=== PATIENT | female | born 1940 | race Caucasian/White ===

== ENCOUNTER → 2022-12-21 13:23 | Outpatient (BNVA) | payer MEDICARE, SELFPAY | PROVIDERS: Visit Provider Psychiatry & Neurology Neurology | DX: R41.89 Other symptoms and signs involving cognitive functions and awareness (principal); R06.83 Snoring; G47.10 Hypersomnia, unspecified; F41.9 Anxiety disorder, unspecified | CPT/HCPCS: 99202 ==

== ENCOUNTER 2023-02-24 09:20 | Outpatient (REF) | payer MEDICARE, SELFPAY ==
[2023-02-24 11:17] LABS: MANUAL DIFF FLAG NO
[2023-02-24 11:35] LABS: Basophils Percent Auto 0.6 % (0-2); Eosinophils Absolute Auto 0.1 X10*3/uL (0.0-0.4); Eosinophils Percent Auto 2.3 % (0-4); Hematocrit 41.1 % (37.0-47.0); Hemoglobin 13.5 g/dl (12.0-16.0); Imm Gran Abs Auto 0.01 X10*3/uL (0.00-0.03); Imm Gran Pct Auto 0.2 % (0.0-0.4); Lymphocytes Absolute Auto 1.6 X10*3/uL (1.2-4.9); Lymphocytes Percent Auto 29.8 % (20-40); Mean Corpuscular HGB Conc 32.8 g/dl (31.0-35.0); Mean Corpuscular Hemoglobin 30.4 pg (27.0-33.0); Mean Corpuscular Volume 92.6 fL (80.0-98.0); Mean Platelet Volume 10.1 fL (9.4-12.3); Monocytes Absolute Auto 0.5 X10*3/uL (0.1-1.2); Monocytes Percent Auto 8.7 % (2-11); Neutrophils Absolute Auto 3.1 x10*3/uL (2.0-8.3); Neutrophils Percent Auto 58.4 % (45-73); Platelet Count 192 X10*3/uL (160-400); Red Blood Count 4.44 X10*6/uL (4.20-5.50); Red Cell Distribution Width 13.3 % (11.0-16.0); White Blood Count 5.3 X10*3/uL (4.8-10.8)
[2023-02-24 11:54] LABS: Estimated Average Glucose 105 mg/dL; Hemoglobin A1c % 5.3 %
[2023-02-24 12:02] LABS: Alanine Aminotransferase 10 U/L (0-31); Albumin Level 3.9 g/dL (3.5-5.0); Alkaline Phosphatase 68 U/L (39-117); Anion Gap 10 (12-20); Aspartate Amino Transferase 15 U/L (5-31); Bilirubin Total 0.8 mg/dL (0.0-1.0); Blood Urea Nitrogen 16 mg/dL (9-16); Calcium 9.7 mg/dL (8.4-10.2); Carbon Dioxide 31 mmol/L (22-29); Chloride 107 mmol/L (96-108); Cholesterol 181 mg/dL; Estimated Glomerular Filt Rate > 60; Glucose Random 92 mg/dL (60-115); HDL Cholesterol 58 mg/dL; LDL Cholesterol Calculated 93 mg/dl; Sodium 144 mmol/L (135-145); Total Protein 6.2 g/dL (6.5-8.0); Triglycerides 153 mg/dL
[2023-02-24 12:33] LABS: Folate 17.9 ng/mL (> or = 4.0); TSH reflex Free T4 2.18 uIU/mL (0.32-4.0); Vitamin B12 366 pg/mL (200-900)
== END 2023-02-24 09:21 | disposition home or self-care (01) ==
LOC: HO.HMGCLDS 09:20
PROVIDERS: PCP Nurse Practitioner; Visit Provider Nurse Practitioner
DX: R73.03 Prediabetes (principal); E78.5 Hyperlipidemia, unspecified; I10 Essential (primary) hypertension; E53.8 Deficiency of other specified B group vitamins; E55.9 Vitamin D deficiency, unspecified
CPT/HCPCS: 36415; 80053; 80061; 82306; 82607; 82746; 83036; 84443; 85025

== ENCOUNTER → 2023-03-27 15:38 | Outpatient (BNVA) | payer MEDICARE, SELFPAY | PROVIDERS: PCP Nurse Practitioner; Visit Provider Psychiatry & Neurology Neurology | DX: G47.10 Hypersomnia, unspecified (principal); R06.83 Snoring; F03.90 Unspecified dementia, unspecified severity, without behavioral disturbance, psychotic disturbance, mood disturbance, and anxiety; F22 Delusional disorders; F41.9 Anxiety disorder, unspecified; F32.A Depression, unspecified | CPT/HCPCS: 99212 ==

== ENCOUNTER → 2023-04-17 07:37 | Outpatient (BNV) | payer MEDICARE, SELFPAY | PROVIDERS: PCP Nurse Practitioner; Visit Provider Psychiatry & Neurology Neurology | DX: G47.33 Obstructive sleep apnea (adult) (pediatric) (principal); G47.61 Periodic limb movement disorder | CPT/HCPCS: 95810 ==

== ENCOUNTER → 2023-04-17 19:30 | Outpatient (REF) | payer MEDICARE, SELFPAY | LOC: HO.SL 19:30 | PROVIDERS: PCP Nurse Practitioner; Visit Provider Psychiatry & Neurology Neurology | DX: G47.33 Obstructive sleep apnea (adult) (pediatric) (principal); G47.61 Periodic limb movement disorder | CPT/HCPCS: 95810 ==

== ENCOUNTER 2023-05-30 15:03 | Outpatient (AMB) | payer MEDICARE, SELFPAY ==
[2023-05-30 15:05] VITALS: BP 132/74; PULSE 72; O2SAT 95; BMI 30.2
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
== END 2023-05-30 15:42 | disposition home or self-care (01) ==
PROVIDERS: PCP Nurse Practitioner; Visit Provider Psychiatry & Neurology Neurology
DX: R41.89 Other symptoms and signs involving cognitive functions and awareness (principal); G47.33 Obstructive sleep apnea (adult) (pediatric); G43.109 Migraine with aura, not intractable, without status migrainosus
CPT/HCPCS: 99214

== ENCOUNTER → 2023-05-30 15:03 | Outpatient (BNVA) | payer MEDICARE, SELFPAY | PROVIDERS: PCP Nurse Practitioner; Visit Provider Psychiatry & Neurology Neurology | DX: G47.33 Obstructive sleep apnea (adult) (pediatric) (principal); G43.109 Migraine with aura, not intractable, without status migrainosus; R41.89 Other symptoms and signs involving cognitive functions and awareness; Z79.899 Other long term (current) drug therapy; Z99.89 Dependence on other enabling machines and devices | CPT/HCPCS: 99212 ==

== ENCOUNTER 2023-09-13 11:13 | Outpatient (AMB) | payer MEDICARE, SELFPAY ==
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
[2023-09-13 11:28] VITALS: BP 172/90; PULSE 58; RESP 17; O2SAT 98; BMI 29.0
== END 2023-09-13 11:55 | disposition home or self-care (01) ==
PROVIDERS: PCP Nurse Practitioner; Visit Provider Psychiatry & Neurology Neurology
DX: R41.89 Other symptoms and signs involving cognitive functions and awareness (principal); G47.33 Obstructive sleep apnea (adult) (pediatric); G43.109 Migraine with aura, not intractable, without status migrainosus; G50.0 Trigeminal neuralgia
CPT/HCPCS: 99214

== ENCOUNTER → 2023-09-13 11:13 | Outpatient (BNVA) | payer MEDICARE, SELFPAY | PROVIDERS: PCP Nurse Practitioner; Visit Provider Psychiatry & Neurology Neurology | DX: R41.89 Other symptoms and signs involving cognitive functions and awareness (principal); G47.33 Obstructive sleep apnea (adult) (pediatric); G50.0 Trigeminal neuralgia; G43.109 Migraine with aura, not intractable, without status migrainosus | CPT/HCPCS: 99212 ==

== ENCOUNTER 2023-09-28 10:41 | Outpatient (REF) | payer MEDICARE, SELFPAY ==
[2023-09-28 13:35] LABS: MANUAL DIFF FLAG NO
[2023-09-28 13:44] LABS: Basophils Percent Auto 0.6 % (0-2); Eosinophils Absolute Auto 0.1 X10*3/uL (0.0-0.4); Eosinophils Percent Auto 1.5 % (0-4); Hematocrit 40.8 % (37.0-47.0); Hemoglobin 13.3 g/dl (12.0-16.0); Imm Gran Abs Auto 0.01 X10*3/uL (0.00-0.03); Imm Gran Pct Auto 0.2 % (0.0-0.4); Lymphocytes Absolute Auto 1.7 X10*3/uL (1.2-4.9); Lymphocytes Percent Auto 32.3 % (20-40); Mean Corpuscular HGB Conc 32.6 g/dl (31.0-35.0); Mean Corpuscular Hemoglobin 30.4 pg (27.0-33.0); Mean Corpuscular Volume 93.2 fL (80.0-98.0); Mean Platelet Volume 10.5 fL (9.4-12.3); Monocytes Absolute Auto 0.5 X10*3/uL (0.1-1.2); Monocytes Percent Auto 9.3 % (2-11); Neutrophils Percent Auto 56.1 % (45-73); Platelet Count 197 X10*3/uL (160-400); Red Blood Count 4.38 X10*6/uL (4.20-5.50); White Blood Count 5.4 X10*3/uL (4.8-10.8)
[2023-09-28 14:12] LABS: Estimated Average Glucose 111 mg/dL; Hemoglobin A1c % 5.5 % (<6.0)
[2023-09-28 14:14] LABS: Alanine Aminotransferase 12 U/L (0-31); Albumin Level 3.9 g/dL (3.5-5.0); Alkaline Phosphatase 79 U/L (39-117); Anion Gap 10 (12-20); Aspartate Amino Transferase 18 U/L (5-31); Bilirubin Total 0.4 mg/dL (0.0-1.0); Blood Urea Nitrogen 15 mg/dL (9-16); Calcium 9.5 mg/dL (8.4-10.2); Carbon Dioxide 28 mmol/L (22-29); Chloride 106 mmol/L (96-108); Estimated Glomerular Filt Rate > 60; Glucose Random 101 mg/dL (60-115); Potassium 4.1 mmol/L (3.3-5.1); Sodium 140 mmol/L (135-145); Total Protein 6.6 g/dL (6.5-8.0)
[2023-09-28 14:24] LABS: Cholesterol 221 mg/dL (<200); HDL Cholesterol 62 mg/dL (>40); LDL Cholesterol Calculated 119 mg/dL (<100); Triglycerides 204 mg/dL (<150); Vitamin D 25-OH Total 59.5 ng/mL (>30)
[2023-09-28 16:30] LABS: Folate 13.7 ng/mL (> or = 4.0); Vitamin B12 429 pg/mL (200-900)
== END 2023-09-28 10:42 | disposition home or self-care (01) ==
LOC: HO.HMGCLDS 10:41
PROVIDERS: PCP Nurse Practitioner; Referring Provider Psychiatry & Neurology Neurology; Visit Provider Nurse Practitioner
DX: G43.109 Migraine with aura, not intractable, without status migrainosus (principal); E78.2 Mixed hyperlipidemia; R79.89 Other specified abnormal findings of blood chemistry; R73.03 Prediabetes
CPT/HCPCS: 36415; 80053; 80061; 82306; 82607; 82746; 83036; 85025

== ENCOUNTER 2023-11-06 11:16 | Outpatient (AMB) | payer MEDICARE, SELFPAY ==
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
== END 2023-11-08 08:19 | disposition home or self-care (01) ==
LOC: HO.HSMS 11:16
PROVIDERS: PCP Nurse Practitioner; Visit Provider Psychiatry & Neurology Neurology
DX: R41.89 Other symptoms and signs involving cognitive functions and awareness (principal); G47.33 Obstructive sleep apnea (adult) (pediatric); G43.109 Migraine with aura, not intractable, without status migrainosus; G50.0 Trigeminal neuralgia
CPT/HCPCS: 99442

== ENCOUNTER → 2023-11-06 11:16 | Outpatient (BNVA) | payer MEDICARE, SELFPAY | PROVIDERS: PCP Nurse Practitioner; Visit Provider Psychiatry & Neurology Neurology ==

== ENCOUNTER 2024-05-30 10:54 | Outpatient (AMB) | payer MEDICARE, SELFPAY ==
[2024-05-30 11:00] VITALS: BP 138/84; PULSE 66; O2SAT 95; BMI 28.7
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
== END 2024-05-30 12:06 | disposition home or self-care (01) ==
PROVIDERS: PCP Nurse Practitioner; Visit Provider Nurse Practitioner Family
DX: G43.109 Migraine with aura, not intractable, without status migrainosus (principal); G50.0 Trigeminal neuralgia; F03.90 Unspecified dementia, unspecified severity, without behavioral disturbance, psychotic disturbance, mood disturbance, and anxiety
CPT/HCPCS: 99214

== ENCOUNTER → 2024-05-30 10:54 | Outpatient (BNVA) | payer MEDICARE, SELFPAY | PROVIDERS: PCP Nurse Practitioner; Visit Provider Nurse Practitioner Family | DX: G43.109 Migraine with aura, not intractable, without status migrainosus (principal); G50.0 Trigeminal neuralgia; F03.90 Unspecified dementia, unspecified severity, without behavioral disturbance, psychotic disturbance, mood disturbance, and anxiety | CPT/HCPCS: 99212 ==

== ENCOUNTER 2024-08-15 10:48 | Outpatient (AMB) | payer MEDICARE, SELFPAY ==
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
[2024-08-15 10:51] VITALS: BMI 28.7
== END 2024-08-15 11:58 | disposition home or self-care (01) ==
PROVIDERS: PCP Nurse Practitioner; Visit Provider Psychiatry & Neurology Neurology
DX: G47.33 Obstructive sleep apnea (adult) (pediatric) (principal)
CPT/HCPCS: 95976; 99213

== ENCOUNTER → 2024-08-15 10:48 | Outpatient (BNVA) | payer MEDICARE, SELFPAY | PROVIDERS: PCP Nurse Practitioner; Visit Provider Psychiatry & Neurology Neurology | DX: G47.33 Obstructive sleep apnea (adult) (pediatric) (principal) | CPT/HCPCS: 95976; 99212 ==

== ENCOUNTER 2024-09-17 11:25 | Outpatient (AMB) | payer MEDICARE, SELFPAY ==
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
[2024-09-17 11:32] VITALS: BP 150/78; PULSE 62; O2SAT 93; BMI 29.2
--- OUTSIDE RECORDS SUMMARY | 2024-09-17 11:44 | XMS_ITS ---
Author Name [facility] Organization Unknown History of Medication Use Medication Directions Dispensed Refills Start Date End Date Stat PANTOprazole (PROTONIX) 40 MG EC tablet Take 1 tablet (40 mg total) by mouth every morning before breakfast. 12/29/2023 active SUMAtriptan (IMITREX) 25 MG tablet TAKE ONE TABLET BY MOUTH ONCE NEEDED FOR MIGRAINE. MAY REPEAT DOSE IN 2 HOURS IF UNRESOLVED. DO NOT EXCEED 200 MG IN 24 HOURS 10/11/2023 active Psyllium (Metamucil) 0.36 g Cap Take by mouth. 06/07/2023 active propranolol (INDERAL LA) 80 MG 24 hr capsule Take 1 capsule (80 mg total) by mouth daily. 06/07/2023 active levothyroxine (SYNTHROID, LEVOTHROID) 112 MCG tablet TAKE ONE TABLET BY MOUTH EVERY DAY 06/07/2023 active gabapentin (NEURONTIN) 300 MG capsule Take 1 capsule (300 mg total) by mouth 2 times a day. 06/07/2023 active divalproex er (DEPAKOTE ER) 250 MG 24 hr tablet Take 2 tablets (500 mg total) by mouth nightly. 06/07/2023 active escitalopram (LEXAPRO) 20 MG tablet 06/07/2023 active cyanocobalamin (VITAMIN B-12) 2000 MCG tablet Take 1 tablet by mouth daily. 06/07/2023 active donepezil (ARICEPT) 10 MG tablet Take 1 tablet (10 mg total) by mouth nightly. 10/11/2023 active rosuvastatin (CRESTOR) 20 MG tablet Take 1 tablet (20 mg total) by mouth daily. 06/07/2023 active Qulipta 60 MG tablet Take 1 tablet (60 mg total) by mouth daily. 06/07/2023 active Icosapent Ethyl (Vascepa) 1 g Cap Take 1 capsule by mouth 2 (two) times a day. 06/07/2023 active donepezil (ARICEPT) 10 MG tablet 06/07/2023 active escitalopram (LEXAPRO) 20 MG tablet Take 1 tablet (20 mg total) by mouth daily. 10/11/2023 active naproxen sodium (ANAPROX) 550 MG tablet Take 1 tablet by mouth 2 times daily (every 12 hours) as needed. 06/07/2023 active carBAMazepine (TEGretol XR) 100 MG 12 hr tablet 10/11/2023 active levothyroxine (SYNTHROID, LEVOTHROID) 112 MCG tablet Take 1 tablet (112 mcg total) by mouth daily. 10/11/2023 active SUMAtriptan (IMITREX) 25 MG tablet Take 1 tablet (25 mg total) by mouth once as needed for migraine. May repeat in 2 hours if unresolved. Do not exceed 200 mg in 24 hours. 06/07/2023 active ergocalciferol (VITAMIN D2,DRISDOL) 64144 units Cap TAKE ONE CAPSULE BY MOUTH ONCE WEEKLY 06/07/2023 active famotidine (PEPCID) 20 MG tablet Take 1 tablet (20 mg total) by mouth 2 (two) times a day. 06/07/2023 active Problems Problem Status Onset Date Problem Type Date of Resoluti on Source Frail elderly active 2023-02-21 ProblemAct [facility] T HLD (hyperlipidemia) active 2023-02-21 ProblemAct [facility] Gait instability active 2023-02-21 ProblemAct [facility] Neuropathy, lower extremity active 2023-02-21 ProblemAct [facility] HTN (hypertension) active 2023-02-21 ProblemAct [facility] Frequent headaches active 2023-09-17 ProblemAct [facility] Acquired hypothyroidism active 2023-09-17 ProblemAct [facility] Chronic GERD active 2023-02-21 ProblemAct [facility] Intractable migraine active 2023-02-21 ProblemAct [facility] Low vitamin D level active 2023-02-21 ProblemAct [facility] 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 behavioral disturbance, psychotic disturbance, mood disturbance, or anxiety active 2023-05-29 ProblemAct [facility] T Depression with anxiety active 2023-02-21 ProblemAct [facility] Pre-diabetes active 2023-02-21 ProblemAct [facility] Closed nondisplaced fracture of fifth left metatarsal bone active 2023-02-25 ProblemAct [facility] Immunizations Vaccine Date Source Lot Number Status Influenza, Recombinant, Quad rivalent (FLUBLOK) Preservative Free IM 06/29/2023 [facility] completed Influenza High-Dose Quadriva lent,(FLUZONE HIGH-DOSE), Perservative Free IM 0.7 mL 65 years and older 09/15/2021 [facility] completed Tdap 12/30/2021 [facility] [id number] completed Covid-19 mRNA Vaccine (2022- 2023)- MODERNA 25 mcg/0.25 mL 6 momth-11 year 06/29/2023 [facility] comp leted
--- OUTSIDE RECORDS SUMMARY | 2024-09-17 11:44 | XMS_ITS | Data Portability ---
Author Organization [place] [facility], Allergy Address [address] [address] Assessment Encounter Date Assessment Date Assessment LastModified by Organization Details LastModified Time 03/27/2024 03/27/2024 Based on review of prior sleep study, office physical exam, drug-induced sleep endoscopy the patient appears to be a good candidate for the inspire hypoglossal nerve stimulator device. We discussed the implant surgery will require 2 incisions. The first incision is below the right jawline and allows identification and placement of a stimulation cuff around a branch of the nerve that controls movement of the tongue to open the airway while sleeping. The second incision is below the right collarbone and allows a sense lead to detect when effort is made to take of breath. In the same incision site a generator is placed which then sends a signal to trigger tongue movement. Risks of surgery include injury to nearby structures including nerves that control movement of the lower lip, tongue as well as risk of infection of a medical officer, scar, wound healing. There is an implanted battery that will need to be changed in approximately 10 years with an additional surgery. Patient is anticipated to be discharged home on the day of surgery with prescription for pain control and antibiotics. Most patients only need Tylenol and Motrin for discomfort. They will follow-up in the office approximately 1 week after surgery to evaluate the wound. They should keep the incision sites dry for at least 48 hours after surgery and leave dressings intact until follow-up unless they become very soiled. Patient will follow-up with sleep center to begin activation in approximately 1 month after the surgery and can anticipate the device will become therapeutically titrated over the next several weeks. Patient will work with surgery scheduling to coordinate a time for implantation [email or web address] Not available 03/27/2024 12:33:06 06/27/2024 06/27/2024 Patient is doing well postoperatively. Steri strips were removed and incisions are healing well without evidence of infection. Patient will follow up with sleep medicine in 1 month to activate the device. She may follow up as needed. [email or web address] Not available 06/27/2024 12:00:43 Plan of Treatment Reminders Order Date Submit Date Provider Last Modified By Organization Details Last Modified Time Details Appointments None recorded. Lab None recorded. Referral None recorded. Procedures insertion or replacement of neurostimul ator system for treatment of central sleep apnea; complete system (PROC) - INSPIRE implant 2023 024 [email or web address] Not available 16:54:43 Surgeries None recorded. Imaging None recorded. Medication Orders None recorded. Patient TargetsNo targets recorded. Patient InstructionsNo instructions recorded. Reason for Referral None Reported. Results Created Date Observation Date Name Description Value Unit Range Abnormal Flag Note LastModifiedBy Organization Detail LastModifiedTime 05/22/2004/17/2023 imagi ng/sourav márquez tic resul t No observ ation record ed. [email or web address] Not Available 05:49:49 Result Notes None recorded. Problems Name Problem SNOMED Code Status Onset Date Resolution Date Notes Provider Name and Address Organization Details Recorded Time Obstructiv e sleep apnea syndrome 13802890 Active 2022 Obstructiv e sleep apnea (adult) (pediatric ); Note: Date Diagnosed: 08/30/2023 12:32 PM (G47.33) Note: Date Diagnosed: 08/30/2023 12:32 PM (G47.33) AUREA JACINTO MD [address] [place] [address], [place], [phone], [facility] - [facility] 4 11:43:41 Body mass index 25-29 - overweight 048711021 Active 2023 AUREA JACINTO MD [address] [place] [address], [place], [address], [facility] - [facility] 4 13:29:10 Problem Notes None recorded. 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 Medical Equipment None Reported. Medications Name Sig Start Date Stop Date Status Note LastModified by Organization Details LastModified Time donepezil 10 mg tablet 10 MG ORALLY DAILY FOR 90 DAYS 1/2 TAB EVERYDAY FOR 2 WEEKS AND THEN 1 TAB EVERYDAY active Not Available Not Available No t Available carbamazep ine ER 100 mg tablet,ext ended release,12 hr active Not Available Not Available Not Available sumatripta n 25 mg tablet active Not Available Not Available Not Available famotidine 20 mg tablet TAKE 1 TABLET BY MOUTH TWICE A DAY active Not Available Not Available No t Available pantoprazo le 40 mg tablet,del ayed release active Not Available Not Available Not Available propranolo l ER 80 mg capsule,24 hr,extende d release active Not Available Not Available No t Available gabapentin 300 mg capsule active Not Available Not Available Not Available ibuprofen 600 mg tablet active Not Available Not Available Not Available levothyrox ine 112 mcg tablet active Not Available Not Available N ot Available amoxicilli n 875 mg-potassi um clavulanat e 125 mg tablet active Not Available Not Available Not Available escitalopr am 20 mg tablet TAKE 1 TABLET BY MOUTH EVERY DAY active Not Available Not Available No t Available divalproex ER 250 mg tablet,ext ended release 24 hr active Medicatio n ID: [id number] Br and Name: divalproe x Send Method: E-Prescri bed Subs Allowed: subs OK Medica tionGener icName: divalproe x Not Available Not Available Not Available rosuvastat in 20 mg tablet TAKE 1 TABLET BY MOUTH EVERY DAY active Not Available Not Available No t Available Vascepa 1 gram capsule active Medicatio n ID: [id number] Br and Name: Vascepa S end Method: E-Prescri bed Subs Allowed: subs OK Medica tionGener icName: Vascepa Not Available Not Available Not Available Qulipta 60 mg tablet active Not Available Not Available No t Available Vitals Date Recorded Body height Body mass index (BMI) Body weight Provider Name and Address Organization Details Last Updated DateTime 06/27/2024 160.02 cm 28 kg/m2 75690.59 g Audie Thrasher [place] - [facility] 06/27/2024 11:09:04 Social History None recorded. Functional Status None recorded. Mental Status None recorded. Family History Nothing Reported. Medical History No medical history recorded. Gynecological HistoryNo gynecological history recorded. Obstetrics History GPAL:G 0 P 0 0 0 0 Past Encounters Encounter ID Performer Location Encounter Start Date Encounter Closed Date Diagnosis/Indication Diagnosis SNOMED-CT Code Diagnosis ICD10 Code [id number] AUREA JACINTO MD [facility] [address] [address] 03/18/2024 00:27:42 03/18/2024 00:27:42 Obstructive sleep apnea syndrome 77989109 G47.33 [id number] AUREA JACINTO MD [facility] [address] [address] 03/27/2024 13:19:07 03/27/2024 13:29:44 Obstructive sleep apnea syndrome 44928400 G47.33 Body mass index 25-29 - overweight 104222414 Z68.29 [id number] AUREA JACINTO MD [facility] [address] [address] 06/27/2024 10:54:38 06/27/2024 11:32:18 Obstructive sleep apnea syndrome 92039908 G47.33 Postoperative care 01949 9007 Z48.89 Health Concerns Section Related Observation LastModified by Organization Detai ls LastModified Time None Recorded Concern Status LastModified by Organization Details LastModified Time None Recorded Advance Directives Directive None Recorded Payers Encounter Date Sequence Insurance Name Policy Number Policy Cisneros Covered Member ID Cisneros Member ID Guarantor Name 03/18/2024 1 [employer] [id number] Hollie H Jessi [id number] Hollie H Jessi 03/27/2024 1 [employer] [id number] Hollie H Jessi [id number] Hollie H Jessi 06/27/2024 1 [employer] [id number] Hollie H Jessi [id number] Hollie H Jessi Notes Date Note Type Note Provider Name and Address Organization Details Recorded Time 03/27/2024 text/html TERA - Inspire co nsult DISE 03/18/24 - Good anatomical candidate for INSPIREBonnie (daughter)split night [facility] 04/17/23BMI - 28AHI - 27central & mixed - no eventsCPAP - tried 3 different masks but was removing it at night - sensation of being choked.tried adjusting force of the air pressurePMHx - dementiauses bathroom 1-2 times per nightfalls asleep wellno hx of throat or nose surgery AUREA JACINTO MD [address] [place] [address], [phone], [place] - [facility] 03/27/2024 13:29:28 06/27/2024 text/html 84-year-old fema francisco presents status post inspire implant on 06/20/[address] Jacinto. She is doing well postoperatively without any concerns. She is on her last dose of antibiotics. AUREA JACINTO MD [address] [place] [address],[address], [address], [place] - [facility] 06/27/2024 16:56:52 OBGyn Episode No OBEpisode recorded.
--- OUTSIDE RECORDS SUMMARY | 2024-09-17 11:44 | XMS_ITS | Continuity of Care Document ---
Author Organization [place] - [facility], [facility] Address [address] [place] [address] Assessment Encounter Date Assessment Date Assessment LastModified by Organization Details LastModified Time 06/27/2024 06/27/2024 Patient is doing well postoperative ly. Steri strips were removed and incisions are healing well without evidence of infection. Patient will follow up with sleep medicine in 1 month to activate the device. She may follow up as needed. [email or web address] Not available 06/27/2024 12:00:43 Plan of Treatment Reminders Order Date Submit Date Provider Last Modified By Organization Details Last Modified Time Details Appointments None record ed. Lab None record ed. Referral None record ed. Procedures None record ed. Surgeries None record ed. Imaging None record ed. Medication Orders None record ed. Patient TargetsNo targets recorded. Patient InstructionsNo instructions recorded. Reason for Referral None Reported. Problems Name Problem SNOMED Code Status Onset Date Resolution Date Notes Provider Name and Address Organization Details Recorded Time Obstructiv e sleep apnea syndrome 95008347 Active 2022 Obstructiv e sleep apnea (adult) (pediatric ); Note: Date Diagnosed: 08/30/2023 12:32 PM (G47.33) Note: Date Diagnosed: 08/30/2023 12:32 PM (G47.33) AUREA JACINTO MD [address] [address], [place], [address], [place] - [facility] 11:43:41 Body mass index 25-29 - overweight 944043760 Active 2023 AUREA JACINTO MD [address] [address], [place], [address], [place] - [facility] 4 13:29:10 Problem Notes None recorded. Procedures Surgical History Date Name Laterality Status Provider Name and Address Organization Details Recorded Time 4 Opn mpltj hpglsl nstm antoni pg completed AUREA JACINTO MD [address] [facility],[address], [address], [place] - [facility] 06/20/2024 13:43:40 4 Telehealth completed AUREA JACINTO MD [address] [facility],[address], [address], 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 - [facility] 03/18/2024 11:16:47 Imaging Results None recorded. Procedure Notes None recorded. Medical Equipment None [...] release 24 hr active Medicatio n ID: [id number] Br and Name: divalproe x Send Method: E-Prescri bed Subs Allowed: subs OK Medica tionGener icName: divalproe x Not Available Not Available Not Available rosuvastat in 20 mg tablet TAKE 1 TABLET BY MOUTH EVERY DAY active Not Available Not Available No t Available Vascepa 1 gram capsule active Medicatio n ID: [id number] Br and Name: Vascepa S end Method: E-Prescri bed Subs Allowed: subs OK Medica tionGener icName: Vascepa Not Available Not Available Not Available Qulipta 60 mg tablet active Not Available Not Available No t Available Vitals Date Recorded Body height Body mass index (BMI) Body weight Provider Name and Address Organization Details Last Updated DateTime 06/27/2024 160.02 cm 28 kg/m2 86026.59 g Audie Thrasher MD - [facility] 06/27/2024 11:09:04 Social History None recorded. Functional Status None recorded. Mental Status None recorded. Family History Nothing Reported. Medical History No medical history recorded. Gynecological HistoryNo gynecological history recorded. Obstetrics History GPAL:G 0 P 0 0 0 0 Past Encounters Encounter ID Performer Location Encounter Start Date Encounter Closed Date Diagnosis/Indication Diagnosis SNOMED-CT Code Diagnosis ICD10 Code [id number] AUREA JACINTO MD [facility] [address] [address] 06/27/2024 10:54:38 06/27/2024 11:32:18 Obstructive sleep apnea syndrome 67001345 G47.33 Postoperative care 59933 9007 Z48.89 Health Concerns Section Related Observation LastModified by Organization Detai ls LastModified Time None Recorded Concern Status LastModified by Organization Details LastModified Time None Recorded Payers Encounter Date Sequence Insurance Name Policy Number Policy Cisneros Covered Member ID Cisneros Member ID Guarantor Name 06/27/2024 1 [employer] [id number] Hollie Bowen [id number] Hollie Bowen Notes Date Note Type Note Provider Name and Address Organization Details Recorded Time 06/27/2024 text/html 84-year-old fema le presents status post inspire implant on 06/20/[address] Jacinto. She is doing well postoperatively without any concerns. She is on her last dose of antibiotics. AUREA JACINTO MD [address] [place] [address], [place], [address], [facility] - [facility] 06/27/2024 16:56:52 OBGyn Episode No OBEpisode recorded.
== END 2024-09-17 12:05 | disposition home or self-care (01) ==
PROVIDERS: PCP Physician Assistant Medical; Visit Provider Psychiatry & Neurology Neurology
DX: Z45.42 Encounter for adjustment and management of neurostimulator (principal); G47.33 Obstructive sleep apnea (adult) (pediatric)
CPT/HCPCS: 95976

== ENCOUNTER → 2024-09-17 11:25 | Outpatient (BNVA) | payer MEDICARE, SELFPAY | PROVIDERS: PCP Physician Assistant Medical; Visit Provider Psychiatry & Neurology Neurology | DX: G47.33 Obstructive sleep apnea (adult) (pediatric) (principal) | CPT/HCPCS: 95976; 99211 ==

== ENCOUNTER 2024-10-21 11:14 | Outpatient (AMB) | payer MEDICARE, SELFPAY ==
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
== END 2024-10-21 11:47 | disposition home or self-care (01) ==
PROVIDERS: PCP Physician Assistant Medical; Visit Provider Psychiatry & Neurology Neurology
DX: Z45.42 Encounter for adjustment and management of neurostimulator (principal); G47.33 Obstructive sleep apnea (adult) (pediatric)
CPT/HCPCS: 95976; 99214

== ENCOUNTER → 2024-10-21 11:14 | Outpatient (BNVA) | payer MEDICARE, SELFPAY | PROVIDERS: PCP Physician Assistant Medical; Visit Provider Psychiatry & Neurology Neurology | DX: G47.33 Obstructive sleep apnea (adult) (pediatric) (principal) | CPT/HCPCS: 95976; 99212 ==

== ENCOUNTER 2025-03-13 14:58 | Outpatient (AMB) | payer MEDICARE, SELFPAY ==
[2025-03-13 15:02] VITALS: BP 128/82; PULSE 52; O2SAT 96; BMI 29.4
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
--- OUTSIDE RECORDS SUMMARY | 2025-03-13 17:37 | XMS_ITS | Clinical Summary ---
Author Organization [facility] Address [address] [place] [address] Care Team Providers Care Cvt Tech Name Role Phone Daniella Oleary Primary Care Provider [phone] Allergies No known active allergies Medications famotidine (PEPCID) 20 MG tabletIndications: Chronic GERD Take 1 tablet (20 mg total) by mouth 2 (two) times a day. 180 tablet 1 11/13/19 24 Active donepezil (ARICEPT) 10 MG tabletIndications: Medication refill Take 1 tablet (10 mg total) by mouth nightly. 30 tablet 3 08/23/20 24 Active propranolol (INDERAL LA) 80 MG 24 hr capsuleIndications :Medication refill,Primary hypertension Take 1 capsule (80 mg total) by mouth daily. 90 capsule 1 10/22/19 25 Active ergocalciferol (VITAMIN D2,DRISDOL) 35642 units CapIndications:Vit stevenson D deficiency Take 1 capsule (50,000 Units total) by mouth once a week. 12 capsule 1 12/25/19 25 Active gabapentin (NEURONTIN) 300 MG capsuleIndications :Frequent headaches Take 1 capsule (300 mg total) by mouth 2 (two) times a day. 180 capsule 1 12/25/19 25 Active escitalopram (LEXAPRO) 20 MG tabletIndications: Depression with anxiety Take 1 tablet (20 mg total) by mouth daily. 90 tablet 1 12/25/19 25 Active PANTOprazole (PROTONIX) 40 MG EC tabletIndications: Acute gastritis without hemorrhage, unspecified gastritis type Take 1 tablet (40 mg total) by mouth every morning with breakfast. 90 tablet 1 01/04/20 25 Active levothyroxine (SYNTHROID, LEVOTHROID) 112 MCG tabletIndications: Acquired hypothyroidism Take 1 tablet (112 mcg total) by mouth daily. 90 tablet 01/11/20 25 Active rosuvastatin (CRESTOR) 20 MG tabletIndications: Hyperlipidemia, unspecified hyperlipidemia type TAKE 1 TABLET BY MOUTH EVERY DAY 90 tablet 02/26/20 25 Active rosuvastatin (CRESTOR) 20 MG tabletIndications: Hyperlipidemia, unspecified hyperlipidemia type Take 1 tablet (20 mg total) by mouth daily. 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, psychotic disturbance, mood disturbance, or anxiety 05/29/2023 Assessment & Plan (01/05/2024 4:22 PM EDT): 01/02/2024 stable, labs pending or as documented, no medication changes at this time, continue to follow return in 6 months Assessment & Plan (09/17/2023 8:42 PM EST): 09/13/2023 stable, labs pending or as documented, no medication changes at this time, continue to follow return in 3 months Chronic GERD 02/21/2023 02/21/2023 Assessment & Plan (09/17/2023 8:39 PM EST): 09/13/2023 stable, labs pending or as documented, no medication changes at this time, continue to follow return in 3 months Depression with anxiety 02/21/2023 02/22/20 Assessment & Plan (01/05/2024 4:23 PM EDT): 01/02/2024 stable, labs pending or as documented, no medication changes at this time, continue to follow return in 6 months Assessment & Plan (09/17/2023 8:43 PM EST): 09/13/2023 stable, labs pending or as documented, no medication changes at this time, continue to follow return in 3 months Assessment & Plan (02/25/2023 12:44 PM EDT): 02/21/2023 improving, no medication changes, labs as documented or pending, return for worse or new symptoms, follow up in 3 months. Gait instability 02/21/2023 02/21/2023 Assessment & Plan (01/05/2024 4:25 PM EDT): 01/02/2024 stable, labs pending or as documented, no medication changes at this time, continue to follow return in 6 months, strongly encouraged to us cane and walker it will help with mobility and can help with strength in legs HLD (hyperlipidemia) 02/21/2023 02/21/2023 Assessment & Plan (01/05/2024 4:23 PM EDT): 01/02/2024 stable, labs pending or as documented, no medication changes at this time, continue to follow return in 6 months Assessment & Plan (09/17/2023 8:44 PM EST): 09/13/2023 stable, labs pending or as documented, no medication changes at this time, continue to follow return in 3 months Assessment & Plan (05/29/2023 8:31 PM EDT): 05/29/2023 stable, labs pending or as documented, no medication changes at this time, continue to follow return in 6 months Assessment & Plan (02/25/2023 12:44 PM EDT): 02/21/2023 stable, labs pending or as documented, no medication changes at this time, continue to follow return in 3 months HTN (hypertension) 02/21/2023 02/21/2023 Assessment & Plan (01/05/2024 4:22 PM EDT): 01/02/2024 stable, labs pending or as documented, no medication changes at this time, continue to follow return in 6 months Assessment & Plan (09/17/2023 8:41 PM EST): 09/13/2023 stable, labs pending or as documented, no medication changes at this time, continue to follow return in 3 months Assessment & Plan (05/29/2023 8:31 PM EDT): 05/29/2023 stable, labs pending or as documented, no medication changes at this time, continue to follow return in 6 months Assessment & Plan (02/25/2023 12:43 PM EDT): 02/21/2023 stable, labs pending or as documented, no medication changes at this time, continue to follow return in 3 months Intractable migraine 02/21/2023 02/21/2023 Overview (05/29/2023): Dr. Lelo Multani Assessment & Plan (09/17/2023 8:42 PM EST): 09/13/2023 stable, labs pending or as documented, no medication changes at this time, continue to follow with neurology Assessment & Plan (05/29/2023 2:29 PM EDT): 05/29/2023 improving, medication changes as documented when indicated, labs as documented or pending, return for worse or new symptoms, follow up in 3 months. Assessment & Plan (02/25/2023 12:42 PM EDT): 02/21/2023 stable, labs pending or as documented, no medication changes at this time, continue to follow return in 3 months Low vitamin D level 02/21/2023 02/21/2023 Assessment & Plan (09/17/2023 8:45 PM EST): 09/13/2023 stable, labs pending or as documented, no medication changes at this time, continue to follow return in 3 months Assessment & Plan (05/29/2023 8:31 PM EDT): 05/29/2023 stable, labs pending or as documented, no medication changes at this time, continue to follow return in 6 months Assessment & Plan (02/25/2023 12:43 PM EDT): 02/21/2023 stable, labs pending or as documented, no medication changes at this time, continue to follow return in 3 months Pre-diabetes 02/21/2023 02/21/2023 Assessment & Plan (01/05/2024 4:23 PM EDT): 01/02/2024 stable, labs pending or as documented, no medication changes at this time, continue to follow return in 6 months Assessment & Plan (09/17/2023 8:45 PM EST): 09/13/2023 stable, labs pending or as documented, no medication changes at this time, continue to follow return in 3 months Neuropathy, lower extremity 02/21/202301/31 Resolved Problems Problem Noted Date Diagnosed Date Resolved Date Closed nondisplaced fracture of fifth left metatarsal bone 02/25/2023 01/05/2024 Assessment & Plan (02/25/2023 12:47 PM EDT): 02/21/2023 improving, no medication changes, labs as documented or pending, return for worse or new symptoms, follow up in 3 months. Cough 02/21/2023 02/21/2023 09/17/2023 COVID-19 02/21/2023 02/21/2023 09/17/2023 Frail elderly 02/21/2023 02/21/2023 01/02/2024 Encounters Date Type Department Care Team Description 02/25/2025 Refill [facility] [place] [address] [place] [phone] Daniella Oleary PA Hyperlipidemia, unspecified hyperlipidemia type 02/06/2025 1:00 PM EDT Office Visit [facility] [place] [address] [place] [phone] Daniella Oleary PA Mixed hyperlipidemia (Primary Dx); Primary hypertension; Acquired hypothyroidism; 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 behavioral disturbance, psychotic disturbance, mood disturbance, or anxiety (HCC); Pre-diabetes; Class 1 obesity due to excess calories with serious comorbidity and body mass index (BMI) of 30.0 to 30.9 in adult 02/06/2025 Travel 02/03/2025 Documentation [facility] [place] [address] [place] [phone] Daniella Oleary PA 01/10/2025 Orders Only [facility] [place] [address] [place] [phone] Mercedes Escobar LPN Acquired hypothyroidism 01/03/2025 Orders Only [facility] Department of Internal [facility] [place] [address] [place] [phone] Mercedes Escobar LPN Acute gastritis without hemorrhage, unspecified gastritis type 12/24/2024 Refill [facility] [place] [address] [place] [phone] Daniella Oleary PA Vitamin D deficiency; Frequent headaches; Depression with anxiety from Last 3 Months Immunizations Immunization Administration Dates Next Due Covid-19 mRNA Primary Series Vaccine - Moderna 0.5 mL Full Dose 09/03/2021,01/04/2021,11/23/2020 Covid-19 mRNA Seasonal Vacci ne - MODERNA 25 mcg/0.25 mL 6 month-11 year 06/29/2023 Influenza High-Dose Quadriva lent,(FLUZONE HIGH-DOSE), Perservative Free IM 0.7 mL 65 years and older 09/15/2021 Influenza, Recombinant, Quad rivalent (FLUBLOK) Preservative Free IM 06/29/2023 Tdap 12/30/2021 Social History Tobacco Use Types Packs/Day Years Used Date Smoking Tobacco: Never Smokeless Tobacco: Never Tobacco Cessation:Counseling Given: Not Answered Alcohol Use Standard Drinks/Week Comments Not Currently 0 (1 standard drink = 0.6 oz pur e alcohol) PHQ-2 Answer Date Recorded PHQ-2 Total Score 1 06/05/2024 Comments Unknown Sex and Gender Information Value Date Recorded Sex Assigned at Female 12/20/2023 4:35 PM EDT Legal Sex Female 6:30 PM EST Gender Identity Female 12/20/2023 4:35 PM EDT Sexual Orientation Heterosexual (straight) 12/19 4:35 PM EDT Last Filed Vital Signs Vital Sign Reading Time Taken Comments Blood Pressure 142/68 02/06/2025 12:59 PM EDT Pulse 67 02/06/2025 12:59 PM EDT Temperature - - Respiratory Rate - - Oxygen Saturation 95% 02/06/2025 12:59 PM EDT Inhaled Oxygen Concentration - - Weight 75.3 kg (166 lb) 02/06/2025 12:59 PM EDT Height 157.5 cm (5' 2 ) 02/06/2025 12:59 PM EDT Body Mass Index 30.36 02/06/2025 12:59 PM EDT Plan of Treatment Upcoming Encounters Date Type Department Care Team (Late st Contact Info) Description 08/13/2025 1:45 PM EST Office Visit [facility] [place] [address] [place] [phone] Daniella Oleary PA [address] [place], [place] [phone] Health Maintenance Due Date Last Done Comments Pneumococcal Vaccines 50+ (1 of 1 - PCV) 01/06/1990 Zoster (Shingles) Vaccine (1 of 2) 01/06/1990 DXA Bone Density (Females,Ages 65 and older) 01/06/2005 RSV Vaccine 60 years and older and Patients (1 - 1-dose 75+ series) 01/06/2015 COVID-19 Vaccine ( - season) 2024 06/29/2023, 09/03/2021, 01/04/2021, Additional history exists Influenza Vaccine 05/02/2025 08/05/2024, , 09/15/2021 DTaP/Tdap/Td Vaccines (2 - Td or Tdap) 12/31/2031 12/30/2021 Hepatitis B Vaccines Aged Out No long er eligible based on patient's age to complete this topic Procedures Procedure Name Priority Date/Time Associated Diagnosis Comments URINALYSIS WITH MICROSCOPIC Routine 02/03/2025 11:07 AM EDT Primary hypertension Medicare annual wellness visit, subsequent 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 behavioral disturbance, psychotic disturbance, mood disturbance, or anxiety (HCC) Mixed hyperlipidemia Pre-diabetes Elevated liver enzymes Low vitamin D level Vitamin B 12 deficiency Depression with anxiety Hyperlipidemia, unspecified hyperlipidemia type Frequent headaches Chronic GERD Intractable chronic migraine without aura and without status migrainosus Vitamin D deficiency Acute gastritis without hemorrhage, unspecified gastritis type Acquired hypothyroidism MICROALBUMIN, CREATININE, URINE, RANDOM Routine 02/03/2025 11:07 AM EDT Primary hypertension Medicare annual wellness visit, subsequent 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 behavioral disturbance, psychotic disturbance, mood disturbance, or anxiety (HCC) Mixed hyperlipidemia Pre-diabetes Elevated liver enzymes Low vitamin D level Vitamin B 12 deficiency Depression with anxiety Hyperlipidemia, unspecified hyperlipidemia type Frequent headaches Chronic GERD Intractable chronic migraine without aura and without status migrainosus Vitamin D deficiency Acute gastritis without hemorrhage, unspecified gastritis type Acquired hypothyroidism VITAMIN D, 25-HYDROXY Routine 02/03/2025 11:07 AM EDT Primary hypertension Medicare annual wellness visit, subsequent 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 behavioral disturbance, psychotic disturbance, mood disturbance, or anxiety (HCC) Mixed hyperlipidemia Pre-diabetes Elevated liver enzymes Low vitamin D level Vitamin B 12 deficiency Depression with anxiety Hyperlipidemia, unspecified hyperlipidemia type Frequent headaches Chronic GERD Intractable chronic migraine without aura and without status migrainosus Vitamin D deficiency Acute gastritis without hemorrhage, unspecified gastritis type Acquired hypothyroidism VITAMIN B12 AND FOLATE Routine 02/03/2025 11:07 AM EDT Primary hypertension Medicare annual wellness visit, subsequent 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 behavioral disturbance, psychotic disturbance, mood disturbance, or anxiety (HCC) Mixed hyperlipidemia Pre-diabetes Elevated liver enzymes Low vitamin D level Vitamin B 12 deficiency Depression with anxiety Hyperlipidemia, unspecified hyperlipidemia type Frequent headaches Chronic GERD Intractable chronic migraine without aura and without status migrainosus Vitamin D deficiency Acute gastritis without hemorrhage, unspecified gastritis type Acquired hypothyroidism TSH REFLEX TO FREE T4 Routine 02/03/2025 11:07 AM EDT Primary hypertension Medicare annual wellness visit, subsequent 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 behavioral disturbance, psychotic disturbance, mood disturbance, or anxiety (HCC) Mixed hyperlipidemia Pre-diabetes Elevated liver enzymes Low vitamin D level Vitamin B 12 deficiency Depression with anxiety Hyperlipidemia, unspecified hyperlipidemia type Frequent headaches Chronic GERD Intractable chronic migraine without aura and without status migrainosus Vitamin D deficiency Acute gastritis without hemorrhage, unspecified gastritis type Acquired hypothyroidism LIPID PANEL Routine 02/03/2025 11:07 AM EDT Primary hypertension Medicare annual wellness visit, subsequent 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 behavioral disturbance, psychotic disturbance, mood disturbance, or anxiety (HCC) Mixed hyperlipidemia Pre-diabetes Elevated liver enzymes Low vitamin D level Vitamin B 12 deficiency Depression with anxiety Hyperlipidemia, unspecified hyperlipidemia type Frequent headaches Chronic GERD Intractable chronic migraine without aura and without status migrainosus Vitamin D deficiency Acute gastritis without hemorrhage, unspecified gastritis type Acquired hypothyroidism HEMOGLOBIN A1C WITH ESTIMATED AVERAGE GLUCOSE Routine 02/03/2025 11:07 AM EDT Primary hypertension Medicare annual wellness visit, subsequent 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 behavioral disturbance, psychotic disturbance, mood disturbance, or anxiety (HCC) Mixed hyperlipidemia Pre-diabetes Elevated liver enzymes Low vitamin D level Vitamin B 12 deficiency Depression with anxiety Hyperlipidemia, unspecified hyperlipidemia type Frequent headaches Chronic GERD Intractable chronic migraine without aura and without status migrainosus Vitamin D deficiency Acute gastritis without hemorrhage, unspecified gastritis type Acquired hypothyroidism COMPREHENSIVE METABOLIC PANEL Routine 02/03/2025 11:07 AM EDT Primary hypertension Medicare annual wellness visit, subsequent 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 behavioral disturbance, psychotic disturbance, mood disturbance, or anxiety (HCC) Mixed hyperlipidemia Pre-diabetes Elevated liver enzymes Low vitamin D level Vitamin B 12 deficiency Depression with anxiety Hyperlipidemia, unspecified hyperlipidemia type Frequent headaches Chronic GERD Intractable chronic migraine without aura and without status migrainosus Vitamin D deficiency Acute gastritis without hemorrhage, unspecified gastritis type Acquired hypothyroidism COMPLETE BLOOD COUNT, WITH DIFFERENTIAL Routine 02/03/2025 11:07 AM EDT Primary hypertension Medicare annual wellness visit, subsequent 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 behavioral disturbance, psychotic disturbance, mood disturbance, or anxiety (HCC) Mixed hyperlipidemia Pre-diabetes Elevated liver enzymes Low vitamin D level Vitamin B 12 deficiency Depression with anxiety Hyperlipidemia, unspecified hyperlipidemia type Frequent headaches Chronic GERD Intractable chronic migraine without aura and without status migrainosus Vitamin D deficiency Acute gastritis without hemorrhage, unspecified gastritis type Acquired hypothyroidism from Last 3 Months Results * TSH REFLEX FREE T4 (02/03/2025 11:07 AM EDT) Tsh Reflex To Free T4 1.75 0.40 - 4.50 uIU/ml [facility] Blood Blood specimen / Unknown 02/03/2025 11:07 AM EDT 02/03/2025 6:40 PM EDT us Daniella BROOKS [facility] BLOOD ORDERABLES Final Result Performing Organization Address City/State/[facility] Co de Phone Number [facility] [address] [place] [address] * Microalbumin, Creatinine, Urine, Random (02/03/2025 11:07 AM EDT) Microalbumin,Ur ine 21 mg/L [facility] Comment: Reference range not established. Creatinine, Urine 99.3 mg/dL [facility] Comment: 1st Morning Urine: Male: 39 - 259 mg/dL Female: 28 - 217 mg/dL Microalbumin/Cr eatinine Ratio 21.1 <30.0 mg/g CREAT [facility] Urine Urine specimen / Unknown 02/03/2025 11:07 AM EDT 02/03/2025 6:39 PM EDT us Daniella BROOKS URINE ORDERABLES Final Res ult Performing Organization Address [facility] Co de Phone Number [facility] [address] [place] [address], * (ABNORMAL) VITAMIN B12 AND FOLATE (02/03/2025 11:07 AM EDT) Vitamin B12 380 211 - 946 pg/mL [facility] Folate, Serum 22.3(H) 3.1 - 17.5 ng/mL [facility] Blood Blood specimen / Unknown 02/03/2025 11:07 AM EDT 02/03/2025 6:40 PM EDT us Daniella BROOKS LAB BLOOD ORDERABLES Final Result Performing Organization Address [facility] Phone Number [facility] [address] [place] [address] * (ABNORMAL) Hemoglobin A1C with Estimated Average Glucose (02/03/2025 11:07 AM EDT) Hemoglobin A1C 5.8(H) 4.2 - 5.6 % of total Hgb [facility] Comment: HbA1c levels below the established reference range may indicate recent episodes of hypoglycemia, the presence of Hb variants or shortened lifespan of red cells. ??Clinical correlation and/or hemoglobin electrophoresis may be indicated. Estimated Average Glucose (mg/dL) 120 mg/dL [facility] Estimated Average Glucose (mmol/L) 6.7 mmol/L [facility] Blood Blood specimen / Unknown 02/03/2025 11:07 AM EDT 02/03/2025 6:40 PM EDT us Daniella BROOKS LAB BLOOD ORDERABLES Final Result Performing Organization Address [facility] Co de Phone Number [facility] [address] [place] [address], * (ABNORMAL) Complete Blood Count, with Differential (02/03/2025 11:07 AM EDT) WBC 5.15 4.00 - 11.00 Thousand/u L [facility] RBC 4.29 4.04 - 5.48 Million/uL [facility] Hemoglobin 13.0 12.0 - 14.1 g/dL [facility] Hematocrit 41.1 33.5 - 43.3 % [facility] MCV 95.8 80.0 - 97.0 fL [facility] MCH 30.3 27.0 - 31.2 pg [facility] MCHC 31.6(L) 31.8 - 35.4 g/dL [facility] RDW-CV 13.6 11.6 - 14.8 % [facility] Platelet Count 169.0 142.0 - 424.0 Thousand/u L [facility] MPV 10.9 8.0 - 13.0 fL [facility] Neutrophil % 52.0 37.0 - 80.0 % [facility] Lymph % 35.5 10.0 - 50.0 % [facility] Monocytes % 10.5 1.0 - 11.9 % [facility] Eosinophils, % 1.4 0.0 - 6.9 % [facility] Basophils, % 0.4 0.0 - 2.4 % [facility] Absolute Neutrophil Count 2.7 2.0 - 6.9 Thousand/u L [facility] Absolute Lymphocytes 1.8 0.6 - 3.4 Thousand/u L [facility] Absolute Monocytes 0.5 0.1 - 0.8 Thousand/u L [facility] Absolute Eosinophils 0.1 0.0 - 0.6 Thousand/u L [facility] Absolute Basophils 0.0 0.0 - 0.1 Thousand/u L [facility] Immature Granulocytes 0.200 0.001 - 0.900 % [facility] Abs Immature Granulocytes 0.0100 0.0000 - 0.0700 Thousand/u L [facility] Nucleated RBCS (%) 0.0 0.0 - 0.2 % [facility] NRBC, Absolute 0.000 0.000 - 0.012 Thousand/u L [facility] Blood Blood specimen / Unknown 02/03/2025 11:07 AM EDT 02/03/2025 6:40 PM EDT us Daniella BROOKS LAB BLOOD ORDERABLES Final Result Performing Organization Address [facility]/ZIP Co de Phone Number [facility] [address] [place] [address], * (ABNORMAL) VITAMIN D, 25-HYDROXY (02/03/2025 11:07 AM EDT) Vitamin D, 25 OH, Total 104(H) 30 - 100 ng/mL [facility] Blood Blood specimen / Unknown 02/03/2025 11:07 AM EDT 02/03/2025 6:40 PM EDT Daniella BROOKS LAB BLOOD ORDERABLES Final Result Performing Organization Address [facility] de Phone Number [facility] [address] [place] [address], * (ABNORMAL) Urinalysis with Microscopic (02/03/2025 11:07 AM EDT) Color Light-Yellow YELLOW [facility] Clarity Clear CLEAR [facility] Specific [place] 1.021 1.005 - 1.035 N/A [facility] pH 7.00 5.00 - 8.00 [facility] Leukocyte Esterase 25 Kathy/uL(A) NEGATIVE Kathy/uL [facility] Nitrite negative NEGATIVE [facility] Protein Tr NEGATIVE [facility] Glucose normal NEGATIVE [facility] Ketones negative NEGATIVE [facility] Bilirubin negative NEGATIVE [facility] Urobilinogen normal NORMAL mg/dL [facility] Blood negative NEGATIVE [facility] Red Blood Cell 0-2 0 - 2 HPF [facility] White Blood Cell 6-10(A) 0 - 5 HPF [facility] Bacteria Rare(A) NONE SEEN HPF [facility] Squamous Epithelial Cells 0-5 0 - 5 HPF [facility] Urine Urine specimen obtained by clean catch procedure / Unknown 02/03/2025 11:07 AM EDT 02/03/2025 6:39 PM EDT Daniella BROOKS URINE ORDERABLES Final Res ult Performing Organization Address [facility] Co de Phone Number [facility] [address] [place] [address], * (ABNORMAL) LIPID PANEL (02/03/2025 11:07 AM EDT) Cholesterol, Total 242(H) 112 - 239 mg/dL [facility] Triglycerides 194(H) <150 mg/dL [facility] Total Hdl-C Direct 64 40 - 120 mg/dL [facility] LDL Cholesterol 139(H) 57 - 130 mg/dL [facility] Comment: Limitations: Triglycerides >or= 400 mg/dl, samples containing significant amounts of chylomicrons (nonfasting specimen), or in patients with type III hyperlipoproteinemia this calculated LDL may be invalid and a direct LDL is recommended. Risk Factor 3.8 3.3 - 5.0 [facility] Non HDL Cholesterol 178 [facility] Blood Blood specimen / Unknown 02/03/2025 11:07 AM EDT 02/03/2025 6:40 PM EDT us Daniella BROOKS [facility] BLOOD ORDERABLES Final Result Performing Organization Address City/State/[facility] Co de Phone Number [facility] [address] [place] [address] * (ABNORMAL) Comprehensive Metabolic Panel (02/03/2025 11:07 AM EDT) Glucose 96 70 - 99 mg/dL [facility] Blood Urea Nitrogen 22 7 - 22 mg/dL [facility] Creatinine, Ser 0.7 0.5 - 1.2 mg/dL [facility] Bun / Creat Ratio 31(H) 11 - 30 [facility] Sodium 144 133 - 145 mmol/L [facility] Potassium 5.1 3.3 - 5.1 mmol/L [facility] Chloride 103 96 - 108 mmol/L [facility] CO2 31 22 - 31 mmol/L [facility] Anion Gap 10 3 - 19 mmol/L [facility] Calcium 9.7 8.8 - 10.6 mg/dL [facility] Total Protein 6.7 6.0 - 8.3 g/dL [facility] Albumin 4.4 3.2 - 4.8 g/dL [facility] Globulin 2.3 2.0 - 3.5 g/dL [facility] Albumin/Globulin Ratio 1.9 1.0 - 5.0 [facility] Aspartate Aminotrans (AST) 14 8 - 37 IU/L [facility] Alanine Aminotrans (ALT) 12 5 - 40 IU/L [facility] Alkaline Phosphatase 102 37 - 145 IU/L [facility] Bilirubin, Total 0.3 0.0 - 1.0 mg/dL [facility] GFR Estimated (calculated) >60 >60 [facility] Comment: As of 2021, the [facility] has updated the creatinine- based estimated glomerular filtration rate (eGFRcr) to the updated CKD-EPI 2020 equation. ??This change removes the race coefficient of the older calculation, and was made based on recommendations from the National [employer] and the [place] [employer]'s Task Force. ??The new eGFRcr has similar overall performance characteristics to the older equation and has been assessed to not have potential consequences that disproportionately affect any one group of individuals. ??However, some mild variation from the older eGFR equation can be expected especially in younger age patients and at higher eGFRcr values. Blood Blood specimen / Unknown 02/03/2025 11:07 AM EDT 02/03/2025 6:40 PM EDT us Daniella [facility] BLOOD ORDERABLES Final Result Performing Organization Address City/State/[facility] de Phone Number [address] from Last 3 Months Insurance [employer] M[employer] MEDICARE Care Teams Cvt Tech Relationship Specialty Start Date End Date Daniella Oleary PA [address] [place] [address] PCP - General Internal Medicine 01/24/24
== END 2025-03-13 15:24 | disposition home or self-care (01) ==
LOC: HO.HSMS 14:58
PROVIDERS: PCP Physician Assistant Medical; Visit Provider Psychiatry & Neurology Neurology
DX: Z45.42 Encounter for adjustment and management of neurostimulator (principal); G47.33 Obstructive sleep apnea (adult) (pediatric)
CPT/HCPCS: 95976; 99214

== ENCOUNTER → 2025-03-13 14:58 | Outpatient (BNVA) | payer MEDICARE, SELFPAY | PROVIDERS: PCP Physician Assistant Medical; Visit Provider Psychiatry & Neurology Neurology | DX: G47.33 Obstructive sleep apnea (adult) (pediatric) (principal) | CPT/HCPCS: 95976; 99212 ==

== ENCOUNTER → 2025-04-09 19:30 | Outpatient (REF) | payer MEDICARE, SELFPAY | LOC: HO.SL 19:30 | PROVIDERS: PCP Physician Assistant Medical; Visit Provider Psychiatry & Neurology Neurology | DX: G47.33 Obstructive sleep apnea (adult) (pediatric) (principal) | CPT/HCPCS: 95810; 95811 ==

== ENCOUNTER → 2025-04-09 22:23 | Outpatient (BNV) | payer MEDICARE, SELFPAY | PROVIDERS: PCP Physician Assistant Medical; Visit Provider Psychiatry & Neurology Neurology | DX: G47.33 Obstructive sleep apnea (adult) (pediatric) (principal) | CPT/HCPCS: 95810 ==

== ENCOUNTER 2025-05-26 15:07 | Emergency (ER) | payer MEDICARE, SELFPAY ==
--- NOTE | 2025-05-26 | ECG_ITS ---
Test Reason : chest pressure Blood Pressure : */* mmHG Vent. Rate : 52 BPM Atrial Rate : 52 BPM P-R Int : 172 ms QRS Dur : 84 ms QT Int : 434 ms P-R-T Axes : 58 14 17 degrees QTcB Int : 403 ms Sinus bradycardia Septal infarct , age undetermined Abnormal ECG No previous ECGs available Referred By: Generic ED Physician Electronically Signed By: NOY GARCIA
--- NOTE | ~2025-05-26 | XR_ITS ---
CLINICAL HISTORY: fall 3 view, pelvis and left hip Comparison: None provided Findings: The bones are intact. Well corticated irregularities in the right pubic rami are likely sequelae of remote trauma. [id number] narrowing of the bilateral acetabulofemoral joints. Degenerative changes in the lower lumbar spine. Rounded soft tissue density in the pelvis consistent with a distended urinary bladder. IMPRESSION: No acute fracture or dislocation. This document has been electronically signed by: Cheryl Contreras DO on 05/26/2025 19:53:08
--- NOTE | ~2025-05-26 | CT_ITS ---
CLINICAL HISTORY: fall, sternal pain, L rib pain CT CHEST WITHOUT CONTRAST Comparison: None provided Findings: The heart is normal size. No significant pericardial effusion. No mediastinal fluid collection. Calcific plaque in the normal caliber thoracic aorta. 1.1 cm right thyroid nodule with thick marginal calcifications. Device artifact in the right anterior chest wall with an ipsilateral pleural lead. Centrilobular emphysematous changes. Scattered atelectasis and/or scarring. No consolidation or contusion. No pleural effusion or pneumothorax. Nonspecific 1.3 cm soft tissue nodule in the right anterior abdominal wall. 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 Questionable 9 mm calcified splenic artery aneurysm. Cortical irregularities in left ribs 5, 6 and 7 laterally. Sternum intact. No significant thoracic vertebral body compression deformity. IMPRESSION: 1. Acute nondisplaced fractures in left ribs 5, 6 and 7. 2. No hemothorax or pneumothorax. 3. 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 4. 1.1 cm nonspecific right thyroid nodule with thick marginal calcifications. This document has been electronically signed by: Cheryl Contreras DO on 05/26/2025 18:41:32
--- NOTE | ~2025-05-26 | XR_ITS ---
CLINICAL HISTORY: fall, landed on L arm, pain 3 view left elbow Comparison: None provided Findings: No acute fractures. Normal alignment. Mild narrowing and degenerative spurring in the ulnohumeral joint. No joint effusion. The anterior fat pad is visible but not abnormally displaced. No radiopaque foreign body. IMPRESSION: 1. Medial soft tissue swelling. 2. No acute fracture or dislocation. This document has been electronically signed by: Cheryl Contreras DO on 05/26/2025 19:52:08
--- NOTE | ~2025-05-26 | XR_ITS ---
CLINICAL HISTORY: fall 4 view left wrist Comparison: None provided Findings: Osteopenia. No definite acute fracture. No dislocation. Severe narrowing with degenerative spurring in the 1st carpometacarpal joint. Mild narrowing in the intercarpal and radiocarpal joints. Small erosions in the ulnar styloid can be seen with rheumatoid arthritis. No radiopaque foreign body. IMPRESSION: 1. Osteopenia. No definite acute fracture. 2. No dislocation. This document has been electronically signed by: Cheryl Contreras DO on 05/26/2025 19:56:19
--- NOTE | ~2025-05-26 | CT_ITS ---
CLINICAL HISTORY: fall w HS CT CERVICAL SPINE WITHOUT CONTRAST Comparison: None provided Findings: Likely degenerative minimal subluxations at C5-6 and C7-T1. Moderate to moderately severe disc degenerative changes with large endplate osteophytes at C5-6 and C6-7. Moderate to moderately severe facet degenerative changes, right greater than left. No acute fracture or dislocation. Please see the separate report for the CT head/brain. 1.1 cm right thyroid nodule with thick marginal calcifications is nonspecific. No apical pneumothorax. IMPRESSION: No acute fracture in the cervical spine. This document has been electronically signed by: Cheryl Contreras DO on 05/26/2025 18:45:59
--- NOTE | ~2025-05-26 | XR_ITS ---
CLINICAL HISTORY: fall, landed on L arm 2 view left humerus Comparison: None provided Findings: No fractures or dislocations. [id number] arthritic changes in the shoulder. No radiopaque foreign body. IMPRESSION: No acute fracture. This document has been electronically signed by: Cheryl Contreras DO on 05/26/2025 19:58:15
--- NOTE | ~2025-05-26 | XR_ITS ---
CLINICAL HISTORY: fall, pain 4 view left knee Comparison: None provided Findings: No fractures or dislocations. Mild tricompartmental joint space narrowing. Small suprapatellar joint effusion. No radiopaque foreign body. IMPRESSION: 1. Small suprapatellar joint effusion. 2. No acute fracture or dislocation. This document has been electronically signed by: Cheryl Contreras DO on 05/26/2025 19:55:48
--- NOTE | ~2025-05-26 | XR_ITS ---
CLINICAL HISTORY: fall, pain 3 view left hand Comparison: None provided Findings: Diffuse bony demineralization. No definite acute fracture. No dislocation. Moderate narrowing and degenerative spurring in the interphalangeal joints. Severe narrowing and degenerative spurring in the 1st carpometacarpal joint. Mild narrowing in the intercarpal and radiocarpal joints. Small erosions in the ulnar styloid for which the possibility of rheumatoid arthritis is raised. No radiopaque foreign body. IMPRESSION: No acute fracture or dislocation. This document has been electronically signed by: Cheryl Contreras DO on 05/26/2025 19:57:31
--- NOTE | ~2025-05-26 | CT_ITS ---
CLINICAL HISTORY: fall with HS CT HEAD WITHOUT CONTRAST Comparison: None provided Findings: No acute intracranial hemorrhage, extra-axial fluid collection, hydrocephalus or midline shift. Age appropriate generalized parenchymal atrophy. There are periventricular and subcortical white matter hypodensities which are most likely related to microangiopathic gliosis. Intracranial arteriosclerosis. There are opacities in the bilateral maxillary sinuses with increased attenuation. No definite sinus fluid. No mastoid fluid. Visualized orbits: Bilateral aphakia. No skull fracture. IMPRESSION: 1. No acute intracranial hemorrhage. 2. 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 This document has been electronically signed by: Cheryl Contreras DO on 05/26/2025 18:58:14
[2025-05-26 15:20] VITALS: BP 146/99; BP 182/84; PULSE 51; PULSE 53; RESP 14; TEMP 36.5; O2SAT 97; O2SAT 98; BMI 33.6
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
--- NOTE | 2025-05-26 15:59 | MHC.EDTECH ---
ekg delayed due to being pulled to assist with the care of another pt.
[2025-05-26 16:55] VITALS: BP 166/83; PULSE 56; RESP 17; TEMP 36.6; O2SAT 97
[2025-05-26 16:58] LABS: MANUAL DIFF FLAG NO
[2025-05-26 16:59] LABS: Hematocrit 39.1 % (37.0-47.0); Hemoglobin 12.6 g/dl (12.0-16.0); Imm Gran Abs Auto 0.02 X10*3/uL (0.00-0.03); Imm Gran Pct Auto 0.4 % (0.0-0.4); Lymphocytes Absolute Auto 1.4 X10*3/uL (1.2-4.9); Mean Corpuscular HGB Conc 32.2 g/dl (31.0-35.0); Mean Corpuscular Hemoglobin 30.0 pg (27.0-33.0); Mean Corpuscular Volume 93.1 fL (80.0-98.0); NRBC Abs Auto 0.000 X10*3/uL (0.0-0.012); NRBC Pct Auto 0.0 /100WBC (0.0-0.2); Platelet Count 151 X10*3/uL (160-400); Red Blood Count 4.20 X10*6/uL (4.20-5.50); White Blood Count 5.4 X10*3/uL (4.8-10.8)
[2025-05-26 17:13] LABS: Alanine Aminotransferase 13 U/L (0-31); Albumin Level 4.1 g/dL (3.5-5.0); Alkaline Phosphatase 122 U/L (39-117); Anion Gap 10 (12-20); Aspartate Amino Transferase 20 U/L (5-31); Blood Urea Nitrogen 17 mg/dL (9-16); Calcium 9.3 mg/dL (8.4-10.2); Carbon Dioxide 32 mmol/L (22-29); Chloride 104 mmol/L (96-108); Creatinine Clr Calc Pharmacy 50.6; Estimated Glomerular Filt Rate > 60; Magnesium 1.9 mg/dL (1.6-2.6); Potassium 3.7 mmol/L (3.3-5.1); Sodium 142 mmol/L (135-145); Total Protein 6.4 g/dL (6.5-8.0)
[2025-05-26 17:20] LABS: Troponin-I High Sensitivity 3.0 ng/L (<3.5-17.0)
[2025-05-26 17:30] LABS: Appearance Urine Cloudy; Glucose Urine UA Negative (Negative); PH 6.0 (5.0-9.0); Specific Gravity - Urine 1.015 (1.005-1.025); UMIC TRIGGER UACC YES
[2025-05-26 17:32] LABS: UACC Culture Trigger YES
[2025-05-26 17:39] VITALS: BP 166/83; PULSE 56; RESP 17; TEMP 36.6; O2SAT 97
--- OUTSIDE RECORDS SUMMARY | 2025-05-26 17:46 | XMS_ITS | Clinical Summary ---
Author Organization [facility] ity Address [address] [place] [address] Care Team Providers Care Neurosurgery Physician Name Role Phone Jocelynn Avila MD Primary Care Provider Medical History Medical History Date Comments Dementia (CMS/HCC V24, CMS/HCC V28) DX:Dementia (HCC) Hypercholesteremia DX:Hyperchole steremia Social History Tobacco Use Types Packs/Day Years Used Date Smoking Tobacco: Never Smokeless Tobacco: Never Alcohol Use Standard Drinks/Week Comments Never 0 (1 standard drink = 0.6 oz pur e alcohol) Comments Unknown Sex and Gender Information Value Date Recorded Sex Assigned at Not on file Legal Sex Female 10:42 PM EST Gender Identity Not on file Sexual Orientation Not on file Obstetrics History Plan of Treatment Health Maintenance Due Date Last Done Comments Pneumococcal Vaccine: 50+ Ye ars (1 of 1 - PCV) 01/06/1990 Zoster Vaccines (1 of 2) 01/06/1990 RSV Immunization Adult Patie nts (1 - 1-dose 75+ series) 01/06/2015 Falls Risk Assessment 09/04/2022 Social Influencers of Health Screening 09/04/2022 COVID-19 Vaccine ( - 2023-2 5 season) 2024 Depression Screening 10/02/2024 Influenza Vaccine (#1) 2025 DTaP,Tdap,and Td Vaccines (2 - Td or Tdap) 12/31/2031 12/30/2021 Osteoporosis Screening (Bone Density Screening) 09/26/2033 09/26/2023 HIB Vaccines Aged Out No longer eligi ble based on patient's age to complete this topic HPV Vaccines Aged Out No longer eligi ble based on patient's age to complete this topic Hepatitis A Vaccines Aged Out No long er eligible based on patient's age to complete this topic Hepatitis B Vaccines Aged Out No long er eligible based on patient's age to complete this topic IPV Vaccines Aged Out No longer eligi ble based on patient's age to complete this topic MMR Vaccines Aged Out No longer eligi ble based on patient's age to complete this topic Meningococcal ACWY Vaccine Aged Out N o longer eligible based on patient's age to complete this topic Meningococcal B Vaccine Aged Out No l onger eligible based on patient's age to complete this topic RSV Immunization Patients Un gasper 20 months Aged Out No longer eligible b ased on patient's age to complete this topic Varicella Vaccines Aged Out No longer eligible based on patient's age to complete this topic Procedures Procedure Name Priority Date/Time Associated Diagnosis Comments [facility] DEXA AXIAL SKELETON Routine 09/26/2023 7:49 AM EST Encounter for screening for osteoporosis from Last 3 Months or Most Recently Relevant to Health Maintenance Results * [facility] DEXA AXIAL SKELETON (09/26/2023 7:49 AM EST) Anatomical Region Laterality Modality Mammography 09/22/2023 3:01 PM EST Narrative 09/26/2023 7:49 AM EST [facility] Diagnostic Imaging Department [address] [place] [address] Patient: GINO BOWEN /Age/Sex: 1940 - 83 - F Unit#: [id number] Location/Status: SPDIMAM/REG CLI Mnemonic[facility] Ordering Physician: DELANEY ASCENCIO NP [facility] Dexa Axial Skeleton - 09/22/23 - 1533 Report Status:Signed HISTORY: The patient is an 83-year-old postmenopausal female with clinical concern for metabolic bone disease. FINDINGS: Dual energy x-ray absorptiometry of the lumbar spine and femurs is performed. The mean bone mineral density at L1-3 is 1.167 gm/cm2 which is 100% of that of young normals and 119% of that of age matched controls. This yields a T-score of 0.0 and a Z-score of 1.5 and there is therefore no evidence of osteoporosis or osteopenia here. The mean bone mineral density of the femurs bilaterally is 0.701 gm/cm2 which is 70% of that of young normals and 92% of that of age matched controls. This yields a T-score of -2.4 and a Z-score of -0.5 which is diagnostic of osteopenia. However, the T-score of the right femoral neck is -2.6 which is diagnostic of osteoporosis. IMPRESSION: 1. Osteoporosis. 2. FRAX analysis yields a 10-year probability of major osteoporotic fracture of 19.5% and a 10-year probability of hip fracture of 7.2%. Code 46323 Dictating Physician: ZAYRA BAUMAN MD Electronically Signed by: ZAYRA BAUMAN MD Dic Date/Time: 09/26/2348 Sign date/Time: 09/26/23748 Procedure Note Zayra Bauman MD - 11/07/2023 [facility] Diagnostic Imaging Department [address] [place] [address] Patient: ISAELGINO GALINDO/Age/Sex: 1940 - 83 - F Unit#: [id number] Location/Status: [facility]/REG CLI Mnemonic/[facility] Ordering Physician: DELANEY ASCENCIO STRATEGIC INSIGHTS LEAD Susu Dexa Axial Skeleton - 09/22/23 - 1539 Report Status:Signed HISTORY: The patient is an 83-year-old postmenopausal female withclinical concern for metabolic bone disease. FINDINGS: Dual energy x-ray absorptiometry of the lumbar spine and femursis performed. The mean bone mineral density at L1-3 is 1.167 gm/cm2 which is100% of that of young normals and 119% of that of age matched controls. Thisyields a T-score of 0.0 and a Z-score of 1.5 and there is therefore no evidenceof osteoporosis or osteopenia here. The mean bone mineral density of the femurs bilaterally is 0.701 gm/nk3mysak is 70% of that of young normals and 92% of that of age matched controls.This yields a T-score of -2.4 and a Z-score of -0.5 which is diagnostic of osteopenia. However, the T-score of the right femoral neck is -2.6 whichis diagnostic of osteoporosis. IMPRESSION: 1. Osteoporosis. 2. FRAX analysis yields a 10-year probability of major osteoporoticfracture of 19.5% and a 10-year probability of hip fracture of 7.2%. Code 76974 Dictating Physician: ZAYRA BAUMAN MD Electronically Signed by: ZAYRA BAUMAN MD Dic Date/Time: 09/26/2348 Sign date/Time: 09/26/2349 Delaney Ascencio CRAFT CENTER DIRECTOR IMG BI PROCEDURES Final Resu lt from Last 3 Months or Most Recently Relevant to Health Maintenance Care Teams Neurosurgery Physician Relationship Specialty Start Date End Date Jocelynn Avila MD [address] [place] [address] PCP - General Family Medicine 12/30/21
--- OUTSIDE RECORDS SUMMARY | 2025-05-26 17:46 | XMS_ITS | Encounter Summary ---
Author Organization [facility] Address [address] [place] [address] Care Team Providers Care Latcher Name Role Phone Delaney Ascencio APRN Primary Care Provider Un available Daniella Oleary Primary Care Provider + [phone] Daniella Oleary Unavailable [phone] Reason for Visit * Reason Comments Medication Refill Encounter Details Date Type Department Care Team (Late st Contact Info) Description 05/08/2023 Refill [facility] Department of Internal Medicine [place] [address] [place] [address] Delaney Ascencio APRN *need valid address Chronic GERD (Primary Dx); Vitamin D deficiency; Hyperlipidemia, unspecified hyperlipidemia type Social History Tobacco Use Types Packs/Day Years Used Date Smoking Tobacco: Never Assessed Comments Unknown Sex and Gender Information Value Date Recorded Sex Assigned at Female 12/20/2023 4:35 PM EDT Legal Sex Female 6:30 PM EST Gender Identity Female 12/20/2023 4:35 PM EDT Sexual Orientation Heterosexual (straight) 12/19 4:35 PM EDT documented as of this encounter Plan of Treatment Upcoming Encounters Date Type Department Care Team (Late st Contact Info) Description 08/13/2025 1:45 PM EST Office Visit [facility] Department of Internal Medicine [place] [address] [place] [phone] Daniella Oleary PA [address] [place], [place] [id number] documented as of this encounter Visit Diagnoses Diagnosis Chronic GERD- Primary Vitamin D deficiency Hyperlipidemia, unspecified hyperlipidemia type documented in this encounter Care Teams Latcher Relationship Specialty Start Date End Date Delaney Ascencio APRN PCP - General 01/23/24 Daniella Oleary PA [address] [place] [address] PCP - General Internal Medicine 01/24/24 Daniella Oleary PA [address] [place], [place] [id number] PCP - Handy Sweet MA Attributed 04/01/24 01/29/25 documented as of this encounter
--- OUTSIDE RECORDS SUMMARY | 2025-05-26 17:46 | XMS_ITS | Encounter Summary ---
Author Organization [facility] Address [address] [place] [address] Care Team Providers Care Retail Sales Associate Name Role Phone Delaney Ascencio APRN Primary Care Provider Un available Daniella Oleary Primary Care Provider + [phone] Daniella Oleary Unavailable [phone] Encounter Details Date Type Department Care Team (Late st Contact Info) Description 12/28/2023 Scanned Document [facility] Department of Internal Medicine [address] [phone] Delaney Ascencio APRN *need valid address Social History Tobacco Use Types Packs/Day Years Used Date Smoking Tobacco: Never Smokeless Tobacco: Never Alcohol Use Standard Drinks/Week Comments Not Currently 0 (1 standard drink = 0.6 oz pur e alcohol) PHQ-2 Answer Date Recorded PHQ-2 Total Score 1 05/29/2023 Comments Unknown Sex and Gender Information Value [...] Description 08/13/2025 1:45 PM EST Office Visit [facility] Department of Internal Medicine [place] [address] [place] [address] Daniella Oleary PA [address] [place] [address] documented as of this encounter Visit Diagnoses Not on filedocumented in this encounter Care Teams Retail Sales Associate Relationship Specialty Start Date End Date Delaney Ascencio MARIA R Hopkins PCP - General 01/23/24 Daniella Oleary PA [address] [place] [address] PCP - General Internal Medicine 01/24/24 Daniella Oleary PA [address] [place] [address] PCP - Handy Sweet MA Attributed 04/01/24 01/29/25 documented as of this encounter
--- OUTSIDE RECORDS SUMMARY | 2025-05-26 17:46 | XMS_ITS | Encounter Summary ---
Author Organization [facility] Address [address] [place] [address] Care Team Providers Care Atmospheric Physics Professor Name Role Phone Delaney Ascencio APRN Primary Care Provider Un available Delaney Ascencio APRN Unavailable Unavaila ble Daniella Oleary Primary Care Provider + [phone] Daniella Oleary Unavailable [phone] Reason for Visit * Reason Comments Medication Refill Encounter Details Date Type Department Care Team (Late st Contact Info) Description 02/25/2023 Refill [facility] Department of Internal Medicine [place] [address] [place] [address] Delaney Ascencio APRN *need valid address Acquired hypothyroidism Social History Tobacco Use Types Packs/Day Years [...] Description 08/13/2025 1:45 PM EST Office Visit [facility] Department of Internal Medicine [place] [address] [place] [address] Daniella Oleary PA [address] [place], [place] [id number] documented as of this encounter Visit Diagnoses Diagnosis Acquired hypothyroidism Unspecified hypothyroidism documented in this encounter Care Teams Atmospheric Physics Professor Relationship Specialty Start Date End Date Delaney Ascencio APRN PCP - General 01/23/24 Delaney Ascencio APRN *need valid address PCP - Handy Villalobos MA Attributed 11/02/22 03/01/23 Daniella Oleary PA [address] [place] [address] PCP - General Internal Medicine 01/24/24 Daniella Oleary PA [address] [place] [address] PCP - Handy Sweet MA Attributed 04/01/24 01/29/25 documented as of this encounter
--- OUTSIDE RECORDS SUMMARY | 2025-05-26 17:46 | XMS_ITS | Encounter Summary ---
Author Organization [facility] Address [address] [place] [address] Care Team Providers Care Retail Experience Specialist Name Role Phone Delaney Ascencio APRN Primary Care Provider Un available Daniella Oleary Primary Care Provider + [phone] Daniella Oleary Unavailable [phone] Encounter Details Date Type Department Care Team (Late st Contact Info) Description 06/03/2023 Scanned Document [facility] Department of Internal Medicine [place] [address] [place] [address] Delaney Ascencio APRN *need valid address Social [...] Description 08/13/2025 1:45 PM EST Office Visit [facility] Department of Internal Medicine [place] [address] [place] [phone] Daniella Oleary PA [address] [place] [address] documented as of this encounter Visit Diagnoses Not on filedocumented in this encounter Care Teams Retail Experience Specialist Relationship Specialty Start Date End Date Delaney Ascencio MARIA R Hopkins PCP - General 01/23/24 Daniella Oleary PA [address] [place] [address] PCP - General Internal Medicine 01/24/24 Daniella Oleary PA [address] [place] [address] PCP - Handy Sweet MA Attributed 04/01/24 01/29/25 documented as of this encounter
--- OUTSIDE RECORDS SUMMARY | 2025-05-26 17:46 | XMS_ITS | Encounter Summary ---
Author Organization [facility] Address [address] [place] [address] Care Team Providers Care Human Resources Psychologist Name Role Phone Delaney Ascencio APRN Primary Care Provider Un available Daniella Oleary Primary Care Provider + [phone] Daniella Oleary Unavailable [phone] Encounter Details Date Type Department Care Team (Late st Contact Info) Description 01/01/2024 Scanned Document [facility] Department of Internal Medicine [address] [address] Delaney Ascencio APRN *need valid address Social History Tobacco Use Types Packs/Day Years Used Date Smoking Tobacco: Never Smokeless Tobacco: Never Alcohol Use Standard Drinks/Week Comments Not Currently 0 (1 standard drink = 0.6 oz pur e alcohol) PHQ-2 Answer Date Recorded PHQ-2 Total Score 0 01/03/2024 Comments Unknown Sex and Gender Information Value Date Recorded Sex Assigned at Female 12/20/2023 4:35 PM EDT Legal Sex Female 6:30 PM EST Gender Identity Female 12/20/2023 4:35 PM EDT Sexual Orientation Heterosexual (straight) 12/19 4:35 PM EDT documented as of this encounter Functional Status * Over the past 2 weeks, how often have you been bothered by any of the following problems? Question Answer Date of Assessment Author Patient Health Questionnaire-2 Score 0 01/03/2024 12:17 PM EDT Merissa Ascencio APRN * Question Answer Date of Assessment Author Patient Health Questionnaire-9 Score 3 01/03/2024 12:17 PM Merissa Hussein APRN * Question Answer Date of Assessment Author Little interest or pleasure in doing things Not at all 01/03/2024 12:17 PM Delaney Hussein APRN Feeling down, depressed, or hopeless Not at all 01/03/2024 12:17 PM Delaney Hussein APRN Trouble falling or staying asleep, or sleeping too much Several days 01/03/2024 12:17 PM Delaney Hussein APRN Feeling tired or having little energy Several days 01/03/2024 12:17 PM Delaney Hussein APRN Poor appetite or overeating Several days 01/03/2024 12:17 PM Delaney Hussein APRN Feeling bad about yourself - or that you are a failure or have let yourself or your family down Not at all 01/03/2024 12:17 PM Delaney Hussein APRN Trouble concentrating on things, such as reading the newspaper or watching television Not at all 01/03/2024 12:17 PM Delaney Hussein APRN Moving or speaking so slowly that other people could have noticed? Or the opposite - being so fidgety or restless that you have been moving around a lot more than usual. Not at all 01/03/2024 12:17 PM Delaney Hussein APRN Thoughts that you would be better off or hurting yourself in some way Not at all 01/03/2024 12:17 PM Delaney Hussein APRN How difficult have these problems made it for you to do your work, take care of things at home, or get along with other people? Not difficult at all 01/03/2024 12:17 PM Delaney Hussein APRN documented as of this encounter Plan of Treatment Upcoming Encounters Date Type Department Care Team (Late st Contact Info) Description 08/13/2025 1:45 PM EST Office Visit [facility] Department of Internal Medicine [place] [address] [place] [address] Daniella Oleary PA [address] [place] [address] documented as of this encounter Visit Diagnoses Not on filedocumented in this encounter Care Teams Human Resources Psychologist Relationship Specialty Start Date End Date Delaney Ascencio APRN PCP - General 01/23/24 Daniella Oleary PA [address] [place] [address] PCP - General Internal Medicine 01/24/24 Daniella Oleary PA [address] [place] [address] PCP - Handy Sweet MA Attributed 04/01/24 01/29/25 documented as of this encounter
--- OUTSIDE RECORDS SUMMARY | 2025-05-26 17:46 | XMS_ITS | Encounter Summary ---
Author Organization [facility] Address [address] [place] [address] Care Team Providers Care Gas Fitter Apprentice Name Role Phone Delaney Ascencio APRN Primary Care Provider Un available Daniella Oleary Primary Care Provider + [phone] Daniella Oleary Unavailable [phone] Encounter Details Date Type Department Care Team (Late st Contact Info) Description 12/26/2023 Scanned Document [facility] Department of Internal Medicine [place] [address] [place] [address] Delaney Ascencio APRN *need valid [...] Description 08/13/2025 1:45 PM EST Office Visit [facility] Department of Internal Medicine [place] [address] [place] [phone] Daniella Oleary PA [address] [place] [address] documented as of this encounter Visit Diagnoses Not on filedocumented in this encounter Care Teams Gas Fitter Apprentice Relationship Specialty Start Date End Date Delaney Ascencio MARIA R Hopkins PCP - General 01/23/24 Daniella Oleary PA [address] [place] [address] PCP - General Internal Medicine 01/24/24 Daniella Oleary PA [address] [place] [address] PCP - Handy Sweet MA Attributed 04/01/24 01/29/25 documented as of this encounter
--- OUTSIDE RECORDS SUMMARY | 2025-05-26 17:46 | XMS_ITS | Clinical Summary ---
Author Organization [facility] Address [address] [place] [address] Care Team Providers Care Industrial Retrofit Designer Name Role Phone Daniella Oleary Primary Care Provider [phone] Allergies No known active allergies Medications donepezil (ARICEPT) 10 MG tabletIndications: Medication refill Take 1 tablet (10 mg total) by mouth nightly. 30 tablet 3 08/23/20 24 Active ergocalciferol (VITAMIN D2,DRISDOL) 59616 units CapIndications:Vit stevenson D deficiency Take 1 capsule (50,000 Units total) by mouth once a week. 12 capsule 1 12/25/19 25 Active PANTOprazole (PROTONIX) 40 MG EC tabletIndications: Acute gastritis without hemorrhage, unspecified gastritis type Take 1 tablet (40 mg total) by mouth every morning with breakfast. 90 tablet 1 01/04/20 25 Active escitalopram (LEXAPRO) 20 MG tabletIndications: Depression with anxiety TAKE ONE TABLET BY MOUTH EVERY DAY 90 tablet 1 03/31/20 25 Active famotidine (PEPCID) 20 MG tabletIndications: Chronic GERD Take 1 tablet (20 mg total) by mouth 2 (two) times a day. 180 tablet 1 04/01/20 25 Active levothyroxine (SYNTHROID, LEVOTHROID) 112 MCG tabletIndications: Acquired hypothyroidism TAKE ONE TABLET BY MOUTH EVERY DAY 90 tablet 04/22/20 25 Active propranolol (INDERAL LA) 80 MG 24 hr capsuleIndications :Medication refill,Primary hypertension TAKE ONE CAPSULE BY MOUTH EVERY DAY 90 capsule 1 04/22/20 25 Active rosuvastatin (CRESTOR) 20 MG tabletIndications: Hyperlipidemia, unspecified hyperlipidemia type TAKE ONE TABLET BY MOUTH EVERY DAY 90 tablet 1 04/29/20 25 Active gabapentin (NEURONTIN) 300 MG capsuleIndications :Frequent headaches TAKE ONE CAPSULE BY MOUTH TWICE A DAY 180 capsule 1 05/22/20 25 Active gabapentin (NEURONTIN) 300 MG capsuleIndications :Frequent headaches Take 1 capsule (300 mg total) by mouth 2 (two) times a day. 180 capsule 1 12/25/19 25 025 Discontinued rosuvastatin (CRESTOR) 20 MG tabletIndications: Hyperlipidemia, unspecified hyperlipidemia type TAKE 1 TABLET BY MOUTH EVERY DAY 90 tablet 02/26/20 25 025 Discontinued Active Problems Problem Noted [...] Encounters Date Type Department Care Team Description 05/22/2025 Refill [facility] Department of Internal Medicine [place] [address] [place] [address] Daniella Oleary PA Frequent headaches 04/29/2025 Refill [facility] Internal [facility] [address] [place], [place] [address] Daniella Oleary PA Hyperlipidemia, unspecified hyperlipidemia type 04/22/2025 Refill [facility] Department Internal [facility] [address] [place], [place] [address] Daniella Oleary PA Medication refill; Primary hypertension 04/21/2025 Refill [facility] Internal [facility] [address] [place], [place] [address] Daniella Oleary PA Acquired hypothyroidism 04/18/2025 Orders Only [facility] Department of Internal Medicine [place] [address] [place], [place] [address] Mercedes Escobar LPN Acquired hypothyroidism 04/13/2025 Refill [facility] Internal Medicine [place] [address] [place], [place] [address] Daniella Oleayr PA Acquired hypothyroidism 04/10/2025 Refill [facility] Internal [facility] [address] [place], [place] [address] Daniella Oleary PA Acquired hypothyroidism 04/01/2025 Refill [facility] Department Internal [facility] [address] [place] [phone] Daniella Oleary PA Chronic GERD 03/29/2025 Refill [facility] Department of Internal Medicine [place] [address] [place] [phone] Daniella Oleary PA Depression with anxiety 03/20/2025 Scanned Document [facility] Department of Internal Medicine [place] [address] [place] [address] Daniella Oleary PA 03/14/2025 Telephone [facility] Department of Internal Medicine [place] [address] [place] [address] Daniella Oleary PA Other (S/p d/c from hospital ) 03/14/2025 Scanned Document [facility] of Internal Medicine [place] [address] [place] [address] Daniella Oleary PA 02/25/2025 Refill [facility] Department of Internal Medicine [place] [address] [place] [address] Daniella Oleary PA Hyperlipidemia, unspecified hyperlipidemia type from Last 3 Months Immunizations Immunization Administration [...] Description 08/13/2025 1:45 PM EST Office Visit [facility] Department of Internal Medicine [place] [address] [place] [address] Daniella Oleary PA [address] [place] [address] Health Maintenance Due Date Last Done Comments Pneumococcal Vaccines 50+ (1 of 1 - PCV) 01/06/1990 Zoster (Shingles) Vaccine (1 of 2) 01/06/1990 DXA Bone Density (Females,Ages 65 and older) 01/06/2005 RSV Vaccine 60 years and older and Patients (1 - 1-dose 75+ series) 01/06/2015 COVID-19 Vaccine ( season) 2024 06/29/2023, 09/03/2021, 01/04/2021, Additional history exists Influenza Vaccine 05/02/2025 08/05/2024, , 09/15/2021 DTaP/Tdap/Td Vaccines (2 - Td or Tdap) 12/31/2031 12/30/2021 Hepatitis B Vaccines Aged Out No long er eligible based on patient's age to complete this topic Insurance [employer] MGD MEDICARE Care Teams Industrial Retrofit Designer Relationship Specialty Start Date End Date Daniella Oleary PA [address] [place] [address] PCP - General Internal Medicine 01/24/24
--- OUTSIDE RECORDS SUMMARY | 2025-05-26 17:46 | XMS_ITS | Encounter Summary ---
Author Organization [facility] Address [address] [place] [address] Care Team Providers Care Insole Buffer Name Role Phone Delaney Ascencio APRN Primary Care Provider Un available Daniella Oleary Primary Care Provider + [phone] Daniella Oleary Unavailable [phone] Encounter Details Date Type Department Care Team (Late st Contact Info) Description 01/19/2024 Scanned Document [facility] Department of Internal Medicine [place] [address] [place] [address] Delaney Ascencio APRN *need valid [...] Description 08/13/2025 1:45 PM EST Office Visit [facility] Department of Internal Medicine [place] [address] [place] [address] Daniella Oleary PA [address] [place] [address] documented as of this encounter Visit Diagnoses Not on filedocumented in this encounter Care Teams Insole Buffer Relationship Specialty Start Date End Date Delaney Ascencio MARIA R Hopkins PCP - General 01/23/24 Daniella Oleary PA [address] [place] [address] PCP - General Internal Medicine 01/24/24 Daniella Oleary PA [address] [place] [address] PCP - Handy Sweet MA Attributed 04/01/24 01/29/25 documented as of this encounter
--- OUTSIDE RECORDS SUMMARY | 2025-05-26 17:46 | XMS_ITS | Encounter Summary ---
Author Organization [facility] Address [address] [place] [address] Care Team Providers Care Manager Storage Name Role Phone Delaney Ascencio APRN Primary Care Provider Un available Daniella Oleary Primary Care Provider + [phone] Daniella Oleary Unavailable [phone] Encounter Details Date Type Department Care Team (Late st Contact Info) Description 01/02/2024 Scanned Document [facility] Department of Internal Medicine [place] [address] [place] [address] Delaney Ascencio APRN *need valid address Social [...] Description 08/13/2025 1:45 PM EST Office Visit [facility] Department of Internal Medicine [place] [address] [place] [address] Daniella Oleary PA [address] [place] [address] documented as of this encounter Visit Diagnoses Not on filedocumented in this encounter Care Teams Manager Storage Relationship Specialty Start Date End Date Delaney Ascencio APRN PCP - General 01/23/24 Daniella Oleary PA [address] [place] [address] PCP - General Internal Medicine 01/24/24 Daniella Oleary PA [address] [place] [address] PCP - Handy Sweet MA Attributed 04/01/24 01/29/25 documented as of this encounter
--- OUTSIDE RECORDS SUMMARY | 2025-05-26 17:46 | XMS_ITS | Encounter Summary ---
Author Organization [facility] Address [address] [place] [address] Care Team Providers Care Gas Analyst Name Role Phone Delaney Ascencio APRN Primary Care Provider Un available Daniella Oleary Primary Care Provider + [phone] Daniella Oleary Unavailable [phone] Reason for Visit * Reason Comments Medication Refill Encounter Details Date Type Department Care Team (Late st Contact Info) Description 03/12/2023 Refill [facility] Department of Internal Medicine [place] [address] [place] [address] Delaney Ascencio APRN *need valid address Hyperlipidemia, unspecified hyperlipidemia type Social History Tobacco [...] Description 08/13/2025 1:45 PM EST Office Visit [facility] Department of Internal Medicine [place] [address] [place] [address] Daniella Oleary PA [address] [place], [place] [id number] documented as of this encounter Visit Diagnoses Diagnosis Hyperlipidemia, unspecified hyperlipidemia type documented in this encounter Care Teams Gas Analyst Relationship Specialty Start Date End Date Delaney Ascencio APRN PCP - General 01/23/24 Daniella Oleary PA [address] [place], [place] [id number] PCP - General Internal Medicine 01/24/24 Daniella Oleary PA [address] [place], [place] [id number] PCP - Handy Sweet MA Attributed 04/01/24 01/29/25 documented as of this encounter
--- OUTSIDE RECORDS SUMMARY | 2025-05-26 17:46 | XMS_ITS ---
Author Name [facility] Organization Unknown History of Medication Use Medication Directions Dispensed Refills Start Date End Date Stat us PANTOprazole (PROTONIX) 40 MG EC tablet Take 1 tablet (40 mg total) by mouth every morning before breakfast. 12/21/2023 active carBAMazepine (TEGretol XR) 100 MG 12 hr tablet 09/13/2023 active donepezil (ARICEPT) 10 MG tablet Take 1 tablet (10 mg total) by mouth nightly. 09/13/2023 active levothyroxine (SYNTHROID, LEVOTHROID) 112 MCG tablet TAKE ONE TABLET BY MOUTH EVERY DAY 09/13/2023 active SUMAtriptan (IMITREX) 25 MG tablet Take 1 tablet (25 mg total) by mouth once as needed for migraine. May repeat in 2 hours if unresolved. Do not exceed 200 mg in 24 hours. 05/29/2023 active donepezil (ARICEPT) 10 MG tablet 05/27/2023 active famotidine (PEPCID) 20 MG tablet Take 1 tablet (20 mg total) by mouth 2 (two) times a day. 05/08/2023 active rosuvastatin (CRESTOR) 20 MG tablet Take 1 tablet (20 mg total) by mouth daily. 05/08/2023 active Qulipta 60 MG tablet Take 1 tablet (60 mg total) by mouth daily. 04/24/2023 active naproxen sodium (ANAPROX) 550 MG tablet Take 1 tablet by mouth 2 times daily (every 12 hours) as needed. 01/17/2022 active Psyllium (Metamucil) 0.36 g Cap Take by mouth. 12/03/2021 active Problems Problem Status Onset Date Problem Type Date of Resoluti on Source Closed nondisplaced fracture of fifth left metatarsal bone active 2023-02-25 [facility]Act [facility] Pre-diabetes active 2023-02-21 [facility]Act [facility] Depression with anxiety active 2023-02-21 [facility] 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 behavioral disturbance, psychotic disturbance, mood disturbance, or anxiety active 2023-05-29 ProblemAct [facility] T Low vitamin D level active 2023-02-21 ProblemAct [facility] Intractable migraine active 2023-02-21 ProblemAct [facility] Chronic GERD active 2023-02-21 ProblemAct [facility] Acquired hypothyroidism active 2023-09-17 ProblemAct [facility] Frequent headaches active 2023-09-17 [facility] HTN (hypertension) active 2023-02-21 [facility]Act [facility] Neuropathy, lower extremity active 2023-02-21 ProblemAct [facility] Gait instability active 2023-02-21 [facility]Act [facility] HLD (hyperlipidemia) active 2023-02-21 ProblemAct [facility] Frail elderly active 2023-02-21 ProblemAct [facility] T Immunizations Vaccine Date Source Lot Number Status Covid-19 mRNA Vaccine (2023)- MODERNA 25 mcg/0.25 mL 6 momth-11 year 06/29/2023 [facility] comp leted Influenza, Recombinant, Quad rivalent (FLUBLOK) Preservative Free IM 06/29/2023 [facility] completed Tdap 12/30/2021 [facility] [id number] completed Influenza High-Dose Quadriva lent,(FLUZONE HIGH-DOSE), Perservative Free IM 0.7 mL 65 years and older 09/15/2021 [facility] completed Encounters Encounter Type Encounter Reason Primary Diagnosis Location Date Ambulatory Facial Pain Facial Pain [facility] 02/06/2025 Ambulatory Encounter for genera l adult medical examination without abnormal findings Encounter for general adult medical examination without abnormal findings [facility] 06/05/2024 Ambulatory Vascular dementia, mild, without behavioral disturbance, psychotic disturbance, mood disturbance, and anxiety Vascular dementia, mild, without behavioral disturbance, psychotic disturbance, mood disturbance, and anxiety [facility] 01/02/2024 Ambulatory Acute gastritis without bleeding Acute gastritis without bleeding [facility] 12/21/2023 Ambulatory Mixed hyperlipidemia Mixed hyperlipidemia [facility] 09/13/2023 Ambulatory Encounter for genera l adult medical examination without abnormal findings Encounter for general adult medical examination without abnormal findings [facility] 05/29/2023 Ambulatory Chronic migraine without aura, intractable, without status migrainosus [facility] 02/21/2023 Care Team Organization Name Specialty Phone Email Start Date End Da te Paxton Flasma [facility] 02/06/2025 03/07/2025 Nabil Sutton [id number] Primary Care 08/22/2024 02/18/[address] [facility] 06/05/2024 Nabil Sutton Primary [facility] 03/21/2024 02/18/2025 Paxton Flasma AMBER NOE Primary [facility] 02/21/20232024 Paxton Flasma AMBER [facility]E Primary [facility] 02/21/20232022
--- OUTSIDE RECORDS SUMMARY | 2025-05-26 17:46 | XMS_ITS | Encounter Summary ---
Author Organization [facility] Address [address] [place] [address] Care Team Providers Care Volleyball Coach Name Role Phone Delaney Ascencio APRN Primary Care Provider Un available Delaney Ascencio APRN Unavailable Unavaila ble Daniella Oleary Primary Care Provider + [phone] Daniella Oleary Unavailable [phone] Reason for Visit * Reason Comments Medication Refill Encounter Details Date Type Department Care Team (Late st Contact Info) Description 01/16/2023 Refill [facility] Department of Internal Medicine [place] [address] [place] [address] Delaney Ascencio APRN *need valid address Frequent headaches Social History Tobacco Use Types Packs/Day Years [...] Description 08/13/2025 1:45 PM EST Office Visit [facility] Department of Internal Medicine [place] [address] [place] [address] Daniella Oleary PA [address] [place], [place] [phone] documented as of this encounter Visit Diagnoses Diagnosis Frequent headaches documented in this encounter Care Teams Volleyball Coach Relationship Specialty Start Date End Date Delaney Ascencio APRN PCP - General 01/23/24 Delaney Ascencio APRN *need valid address PCP - Handy Villalobos MA Attributed 11/02/22 03/01/23 Daniella Oleary PA [address] [place] [address] PCP - General Internal Medicine 01/24/24 Daniella Oleary PA [address] [place] [address] PCP - Handy Sweet MA Attributed 04/01/24 01/29/25 documented as of this encounter
--- OUTSIDE RECORDS SUMMARY | 2025-05-26 17:46 | XMS_ITS | Encounter Summary ---
Author Organization [facility] Address [address] [place] [address] Care Team Providers Care Disability Benefits Specialist Name Role Phone Daniella Oleary Primary Care Provider + [phone] Daniella Oleary Unavailable [phone] Encounter Details Date Type Department Care Team (Late st Contact Info) Description 11/18/2024 Scanned Document [facility] Department of Internal Medicine [place] [address] [place] [address] Daniella Oleary PA [address] [place] [address] Social History Tobacco Use Types Packs/Day Years [...] Visit [facility] Department of Internal Medicine [place] [address] [place] [address] Daniella Oleary PA [address] [place] [address] documented as of this encounter Visit Diagnoses Not on filedocumented in this encounter Care Teams Disability Benefits Specialist Relationship Specialty Start Date End Date Daniella Oleary PA [address] [place] [address] PCP - General Internal Medicine 01/24/24 Daniella Oleary PA [address] [place], [place] [id number] PCP - Handy Sweet MA Attributed 04/01/24 01/29/25 documented as of this encounter
--- OUTSIDE RECORDS SUMMARY | 2025-05-26 17:46 | XMS_ITS | Encounter Summary ---
Author Organization [facility] Address [address] [place] [address] Care Team Providers Care Animal Skinner Name Role Phone Delaney Ascencio APRN Primary Care Provider Un available Daniella Oleary Primary Care Provider + [phone] Daniella Oleary Unavailable [phone] Encounter Details Date Type Department Care Team (Late st Contact Info) Description 06/09/2023 Scanned Document [facility] Department of Internal Medicine [place] [address] [place] [address] Delaney Ascencio APRN *need valid [...] Description 08/13/2025 1:45 PM EST Office Visit [facility] Department of Internal Medicine [place] [address] [place] [phone] Daniella Oleary PA [address] [place] [address] documented as of this encounter Visit Diagnoses Not on filedocumented in this encounter Care Teams Animal Skinner Relationship Specialty Start Date End Date Delaney Ascencio MARIA R Hopkins PCP - General 01/23/24 Daniella Oleary PA [address] [place] [address] PCP - General Internal Medicine 01/24/24 Daniella Oleary PA [address] [place] [address] PCP - Handy Sweet MA Attributed 04/01/24 01/29/25 documented as of this encounter
--- OUTSIDE RECORDS SUMMARY | 2025-05-26 17:47 | XMS_ITS | Encounter Summary ---
Author Organization [facility] Address [address] [place] [address] Care Team Providers Care Welt Cutter Name Role Phone Daniella Oleary Primary Care Provider [phone] Encounter Details Date Type Department Care Team (Late st Contact Info) Description 03/14/2025 Scanned Document [facility] Department of Internal Medicine [place] [address] [place] [address] Daniella Oleary PA [address] [place], [place] [id number] Social History Tobacco Use Types Packs/Day Years [...] Description 08/13/2025 1:45 PM EST Office Visit [facility] Department of Internal Medicine [place] [address] [place] [address] Daniella Oleary PA [address] [place] [address] documented as of this encounter Visit Diagnoses Not on filedocumented in this encounter Care Teams Welt Cutter Relationship Specialty Start Date End Date Daniella Oleary PA [address] [address] PCP - General Internal Medicine 01/24/24 documented as of this encounter
--- OUTSIDE RECORDS SUMMARY | 2025-05-26 17:47 | XMS_ITS | Encounter Summary ---
Author Organization [facility] Address [address] [place] [address] Care Team Providers Care Rolling Up Machine Operator Name Role Phone Daniella Oleary Primary Care Provider [phone] Reason for Visit * Reason Comments Medication Refill Encounter Details Date Type Department Care Team (Late st Contact Info) Description 05/22/2025 Refill [facility] Department of Internal Medicine [place] [address] [place] [address] Daniella Oleary PA [address] [place] [address] Frequent headaches Social History Tobacco Use Types [...] Description 08/13/2025 1:45 PM EST Office Visit [facility] Department of Internal Medicine [place] [address] [place] [address] Daniella Oleary PA [address] [place] [address] documented as of this encounter Visit Diagnoses Diagnosis Frequent headaches documented in this encounter Care Teams Rolling Up Machine Operator Relationship Specialty Start Date End Date Daniella Oleary PA [address] [place] [address] PCP - General Internal Medicine 01/24/24 documented as of this encounter
--- OUTSIDE RECORDS SUMMARY | 2025-05-26 17:47 | XMS_ITS | Encounter Summary ---
Author Organization [facility] Address [address] [place] [address] Care Team Providers Care Senior Technical Writer Name Role Phone Daniella Oleary Primary Care Provider [phone] Encounter Details Date Type Department Care Team (Late st Contact Info) Description 03/20/2025 Scanned Document [facility] Department of Internal Medicine [place] [address] [place] [address] Daniella Oleary PA [address] [place], [place] [phone] Social History Tobacco Use Types Packs/Day Years [...] 08/13/2025 1:45 PM EST Office Visit [facility] Department of Internal Medicine [place] [address] [place] [address] Daniella Oleary PA [address] [place] [address] documented as of this encounter Visit Diagnoses Not on filedocumented in this encounter Care Teams Senior Technical Writer Relationship Specialty Start Date End Date Daniella Oleary PA [address] [address] PCP - General Internal Medicine 01/24/24 documented as of this encounter
--- OUTSIDE RECORDS SUMMARY | 2025-05-26 17:47 | XMS_ITS | Encounter Summary ---
Author Organization [facility] Address [address] [place] [address] Care Team Providers Care Medical Artist Name Role Phone Delaney Ascencio APRN Primary Care Provider Un available Daniella Oleary Primary Care Provider + [phone] Daniella Oleary Unavailable [phone] Encounter Details Date Type Department Care Team (Late st Contact Info) Description 10/25/2023 Scanned Document [facility] Department of Internal Medicine [place] [address] [place] [address] Delaney Ascencio APRN *need valid [...] Description 08/13/2025 1:45 PM EST Office Visit [facility] Department of Internal Medicine [place] [address] [place] [phone] Daniella Oleary PA [address] [place] [address] documented as of this encounter Visit Diagnoses Not on filedocumented in this encounter Care Teams Medical Artist Relationship Specialty Start Date End Date Delaney Ascencio MARIA R Hopkins PCP - General 01/23/24 Daniella Oleary PA [address] [place] [address] PCP - General Internal Medicine 01/24/24 Daniella Oleary PA [address] [place] [address] PCP - Handy Sweet MA Attributed 04/01/24 01/29/25 documented as of this encounter
--- OUTSIDE RECORDS SUMMARY | 2025-05-26 17:47 | XMS_ITS | Encounter Summary ---
Author Organization [facility] Address [address] [place] [address] Care Team Providers Care Head Cd Reactor Operator Name Role Phone Delaney Ascencio APRN Primary Care Provider Un available Daniella Oleary Primary Care Provider + [phone] Daniella Oleary Unavailable [phone] Encounter Details Date Type Department Care Team (Late st Contact Info) Description 06/27/2023 Scanned Document [facility] Department of Internal Medicine [place] [address] [place] [address] Delaney Ascencio APRN *need valid [...] Description 08/13/2025 1:45 PM EST Office Visit [facility] Department of Internal Medicine [place] [address] [place] [address] Daniella Oleary PA [address] [place] [address] documented as of this encounter Visit Diagnoses Not on filedocumented in this encounter Care Teams Head Cd Reactor Operator Relationship Specialty Start Date End Date Delaney Ascencio MARIA R Hopkins PCP - General 01/23/24 Daniella Oleary PA [address] [place] [address] PCP - General Internal Medicine 01/24/24 Daniella Oleary PA [address] [place] [address] PCP - Handy Sweet MA Attributed 04/01/24 01/29/25 documented as of this encounter
--- OUTSIDE RECORDS SUMMARY | 2025-05-26 17:47 | XMS_ITS | Clinical Summary ---
Author Organization [facility] Address [address] [place] [address] Care Team Providers Care Director Of Annual Giving Name Role Phone Jocelynn Avila MD Primary Care Provider [phone] Allergies No known active allergies Medications Medication Sig Dispensed Refills Start Date End Date Status escitalopram (LEXAPRO) tablet 10 mg 0 02/15/2022 Active famotidine (PEPCID) 20 MG tablet 0 01/26/2022 Active Vascepa 1 g capsule 0 01/18/2022 Activ e levothyroxine (SYNTHROID) tablet 112 mcg 0 12/31/2021 Active memantine HCl ER (NAMENDA) 14 MG Take by mouth daily. 0 11/27/2021 Active naproxen sodium (ANAPROX) 550 MG tablet 0 01/17/2022 Active propranolol (INDERAL) 80 MG tablet 0 12/31/2021 Active traZODone (DESYREL) 50 MG tablet TAKE 1 TABLET BY MOUTH AT BEDTIME NEEDED 0 01/26/2022 Active rosuvastatin (CRESTOR) tablet 20 mg Take 20 mg by mouth daily. 0 03/01/2022 Active Active Problems No known active problems Immunizations Name Administration Dates Next Due Adacel (Tdap) 12/30/2021 Social History Tobacco Use Types Packs/Day Years Used Date Smoking Tobacco: Never Smokeless Tobacco: Never Alcohol Use Standard Drinks/Week Comments Never 0 (1 standard drink = 0.6 oz pur e alcohol) Sex and Gender Information Value Date Recorded Sex Assigned at Female 12/30/2021 7:15 PM EDT Gender Identity Not on file Sexual Orientation Not on file Job Start Date Occupation Industry Not on file Not on file Not on file Last Filed Vital Signs Vital Sign Reading Time Taken Comments Blood Pressure 174/75 04/21/2022 11:00 AM EDT Pulse 70 04/21/2022 11:00 AM EDT Temperature 36.9 C (98.5 F) 04/21/2022 11:00 AM EDT Respiratory Rate 18 04/21/2022 11:00 AM EDT Oxygen Saturation 96% 04/21/2022 11:00 AM EDT Inhaled Oxygen Concentration - - Weight 76.2 kg (168 lb) 04/21/2022 11:00 AM EDT Height 157.5 cm (5' 2 ) 04/21/2022 11:00 AM EDT Body Mass Index 30.73 04/21/2022 11:00 AM EDT Plan of Treatment Health Maintenance Due Date Last Done Comments COVID-19 Vaccine (#1) 1940 Depression Screening 1952 Preventative Health Evaluation 01/06/1958 Shingrix-Zoster Vaccine (1 of 2) 01/06/1990 Fall Risk Assessment 01/06/2005 Osteoporosis Screening (DEXA Scan) 01/06/2005 Pneumococcal Vaccine (1 of 1 - PCV) 01/06/2005 RSV Adult > 60+ Yrs or Pregn ant (1 - 1-dose 75+ series) 01/06/2015 Influenza Vaccine (#1) 2025 DTap / Tdap / Td (2 - Td or Tdap) 12/31/2031 022 Hepatitis B Vaccines Aged Out No long er eligible based on patient's age to complete this topic RSV Ped < 20 months Aged Out No longe r eligible based on patient's age to complete this topic Care Teams Director Of Annual Giving Relationship Specialty Start Date End Date Jocelynn Avila MD [address] [facility] [address] PCP - General Family Medicine 12/30/21
[2025-05-26 18:29] VITALS: BP 156/86; PULSE 82; RESP 17; TEMP 36.7; O2SAT 94
--- NOTE | 2025-05-26 20:05 | MHC.EDTECH ---
PT placed on a purwick
--- NOTE | 2025-05-26 21:09 | MHC.CM.ED ---
CM met with patient with regards to discharge planning. Pt has a hx of dementia. She is A&Ox3. She mildly confused and has difficulty with words. She tells CM that she has been falling at home. She lives with her daughter and son in law. She uses a cane and has a rollator. She denies having services. She tells CM that she goes somewhere and exercises. It was [facility]. She has a UTI and L rib fractures (5,6 & 7). PT is pending. Pt has [employer] Medicare. There is no HCP on file. Unable to verify PCP. CM called her daughter, Milagro Castro ([phone]) and left a message for a return call back. CM will place local referrals for possible STR.
[2025-05-26 21:43] VITALS: BP 123/57; PULSE 55; RESP 16; TEMP 36.7; O2SAT 95
[2025-05-26] MEDS: Propranolol HCL LA 80 MG CAP.SA.24H PO (22:46)
[2025-05-27 03:23] VITALS: BP 118/69; PULSE 52; RESP 20; TEMP 36.7; O2SAT 95
[2025-05-27 06:09] VITALS: BP 123/58; PULSE 51; RESP 16; TEMP 36.4; O2SAT 94
--- NOTE | 2025-05-27 08:29 | MHC.EDTECH ---
Elio removed ,patient assisted out of bed by Melanie from pysical therapy . Patient voided large amount in bedside commode. AM care done. Patient assisted back to bed requesting to sit on side of bed. Call medina within reach.
--- NOTE | 2025-05-27 08:35 | MHC.CM.PN ---
Addendum entered by Yue Tovar 05/27/25 08:58: Correction after speaking with dtr Milagro. Patient uses a cane for unsteady gait. She also has a walker. Patient has the INSPIRE with remote instead of a CPAP. Her dtr will bring it in for the patient. 1st choice for STR is [facility] @ [place]. Original Note: RAUDEL S/P fall @ [facility] L 5,6+7 RIB FX She lives with her dtr+son in law She is A+O and forgetful She states that she uses a walker for unstready gait DME Walker, cane, tub bench grab bars. CPAP PT eval recommendation is STR. DP STR via BLS once a bed is offered, accepted and insurance authorization obtained. Patient will transport via BLS.
--- NOTE | 2025-05-27 09:33 | PC.NURSE ---
Multiple medications unavailable in ED Pyxis. Requested from pharmacy at this time. Will administer medications upon arrival to ED. Care ongoing by this RN.
[2025-05-27] MEDS: carBAMazepine ER 100 MG TAB.ER.12H PO (10:28)
--- NOTE | 2025-05-27 12:16 | PC.NURSE ---
Addendum entered by Renuka Johnson RN 05/27/25 13:03: Pt requesting tylenol for 710 pain and nausea meds, PA aware. Pt resting comfortably, family @ bedside Original Note: Pt requesting pain and nausea meds, PA aware. Pt resting comfortably, family @ bedside
--- NOTE | 2025-05-27 14:03 | PHA.MEDREC ---
Addendum entered by Carlito Saba PharmD 05/27/25 14:33: reviewed Original Note: Pharmacy Consult ? Medication Reconciliation Pharmacy has reviewed the medication reconciliation done by nursing. claims match med list.
--- NOTE | 2025-05-27 16:34 | MHC.CM.PN ---
Patient S/P fall DX RIB FXs. PT eval recommends STR. [facility] for [facility]. A bed offer has been made and it has been accepted. Discharge is pending insurance authorization for STR @ [facility]. She will transport via S.
[2025-05-27 19:03] VITALS: BP 151/79; PULSE 55; RESP 14; TEMP 36.8; O2SAT 94
[2025-05-27 20:15] VITALS: BP 135/63; PULSE 57; RESP 14; TEMP 36.6; O2SAT 95
[2025-05-27 21:30] VITALS: BP 142/60; PULSE 60; RESP 18
[2025-05-27] MEDS: carBAMazepine ER 200 MG TAB.ER.12H PO (22:14)
[2025-05-27] MEDS: Propranolol HCL LA 80 MG CAP.SA.24H PO (22:15)
[2025-05-28 05:23] VITALS: BP 128/68; PULSE 58; RESP 20; TEMP 37.3; O2SAT 94
[2025-05-28] MEDS: carBAMazepine ER 100 MG TAB.ER.12H PO (08:31)
--- NOTE | 2025-05-28 10:11 | MHC.CM.ED ---
Patient remains in ER overflow. Will d/c to [facility] [place] [facility] STR when ins auth obtained. Continue to monitor for d/c needs.
[2025-05-28 13:42] VITALS: BP 116/66; PULSE 62; RESP 16; TEMP 36.7; O2SAT 95
[2025-05-28 20:57] VITALS: BP 116/54; PULSE 59; RESP 18; TEMP 37.3; O2SAT 97
[2025-05-28] MEDS: carBAMazepine ER 200 MG TAB.ER.12H PO (21:23)
[2025-05-28 21:30] VITALS: BP 110/52; PULSE 57
[2025-05-29 05:09] VITALS: BP 138/67; PULSE 86; RESP 18; TEMP 36.7; O2SAT 95
[2025-05-29] MEDS: carBAMazepine ER 100 MG TAB.ER.12H PO (10:04)
--- NOTE | 2025-05-29 12:39 | MHC.CM.ED ---
Patient remains in ER overflow. Insurance auth has been obtained by [facility] at [place]. [facility]ac[facility] booked for 3pm. [facility]. Patient, daughter Carly Humphrey RN and Kirstin BROOKS aware. Continue to monitor for d/c needs.
[2025-05-29 14:00] VITALS: BP 147/89; PULSE 67; RESP 16; TEMP 37.4; O2SAT 94
[2025-05-29 16:27] VITALS: BP 147/89; PULSE 67; RESP 16; TEMP 37.4; O2SAT 94
== END 2025-05-29 15:30 ==
PROVIDERS: Emergency Provider Emergency Medicine; PCP Physician Assistant Medical
DX: S22.42XA Multiple fractures of ribs, left side, initial encounter for closed fracture (principal); R51.9 Headache, unspecified; R07.89 Other chest pain; M54.2 Cervicalgia; M79.602 Pain in left arm; R10.2 Pelvic and perineal pain; R26.81 Unsteadiness on feet; I10 Essential (primary) hypertension; X58.XXXA Exposure to other specified factors, initial encounter; Y93.9 Activity, unspecified; Y92.9 Unspecified place or not applicable; Y99.8 Other external cause status; Z79.899 Other long term (current) drug therapy
CPT/HCPCS: 36415; 70450; 71250; 72125; 73060; 73070; 73110; 73120; 73502; 73564; 80053; 81001; 83735; 84484; 85025; 87086; 93005; 96365; 97162; 99285; J0131

== ENCOUNTER → 2025-05-26 15:56 | Outpatient (BNV) | payer MEDICARE, SELFPAY | PROVIDERS: Emergency Provider Emergency Medicine; PCP Physician Assistant Medical; Visit Provider Internal Medicine | DX: R00.1 Bradycardia, unspecified (principal) | CPT/HCPCS: 93010 ==

== ENCOUNTER → 2025-05-26 16:19 | Outpatient (BNV) | payer MEDICARE, SELFPAY | PROVIDERS: Emergency Provider Emergency Medicine; PCP Physician Assistant Medical; Visit Provider Radiology Diagnostic Radiology | DX: S22.42XA Multiple fractures of ribs, left side, initial encounter for closed fracture (principal); I71.43 Infrarenal abdominal aortic aneurysm, without rupture; E04.1 Nontoxic single thyroid nodule; S09.90XA Unspecified injury of head, initial encounter; M79.602 Pain in left arm; R22.32 Localized swelling, mass and lump, left upper limb; M25.562 Pain in left knee; M25.462 Effusion, left knee; M25.552 Pain in left hip; M85.842 Other specified disorders of bone density and structure, left hand; M79.642 Pain in left hand; W19.XXXA Unspecified fall, initial encounter | CPT/HCPCS: 70450; 71250; 72125; 73060; 73070; 73110; 73120; 73502; 73564 ==

== ENCOUNTER 2025-07-15 16:02 | Emergency (ER) | payer MEDICARE, SELFPAY ==
--- NOTE | ~2025-07-15 | CT_ITS ---
CLINICAL HISTORY: abd pain, distention, vomiting CT abdomen and pelvis with contrast Comparison: None provided Findings: Bibasilar dependent subsegmental atelectasis. Hiatal hernia. The findings of the uterus demonstrates multiple subcentimeter granulomas, midline; calcified leiomyomas. The liver and spleen are homogeneous in attenuation. The gallbladder is not visualized. The left and right kidney demonstrate symmetric corticomedullary enhancement. No bowel obstruction, pneumoperitoneum, or pneumatosis. Infrarenal abdominal aortic saccular aneurysm, left of midline 5.2 x 3.6 cm, axial image number 36 of 87 series 2 and coronal image number 02/28/1990 series 6 distal abdominal aorta left of midline saccular aneurysm, 1.3 x 2.5 x 1.3 cm. . Moderate calcified atherosclerotic disease of the abdominal aorta and aortoiliac vessels. Prior appendectomy. Diverticulosis. Moderate osteopenia. 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 IMPRESSION: 1. Infrarenal abdominal aortic saccular aneurysm, left of midline, measuring 5.2 x 3.6 cm. 2. Distal abdominal aorta left of midline saccular aneurysm, measuring 1.3 x 2.5 x 1.3 cm. 3. Moderate calcified atherosclerotic disease of the abdominal aorta and aortoiliac vessels. 4. Diverticulosis. This document has been electronically signed by: Eric Johnson MD on 07/15/2025 19:10:56
[2025-07-15 16:30] VITALS: BP 164/69; BP 170/80; PULSE 54; PULSE 60; RESP 18; TEMP 36.2; O2SAT 95; O2SAT 97; BMI 29.5
--- NOTE | 2025-07-15 16:58 | ECG_ITS ---
Test Reason : ABD PAIN Blood Pressure : */* mmHG Vent. Rate : 51 BPM Atrial Rate : 51 BPM P-R Int : 178 ms QRS Dur : 122 ms QT Int : 456 ms P-R-T Axes : 63 -13 104 degrees QTcB Int : 420 ms Sinus bradycardia Left bundle branch block Abnormal ECG When compared with ECG of 26-May-2025 15:56, Left bundle branch block is now Present Criteria for Septal infarct are no longer Present Referred By: Brenna Serrano Electronically Signed By: Roe Drummond
[2025-07-15 17:31] LABS: MANUAL DIFF FLAG NO
[2025-07-15 17:34] LABS: Imm Gran Abs Auto 0.01 X10*3/uL (0.00-0.03); Imm Gran Pct Auto 0.2 % (0.0-0.4); NRBC Abs Auto 0.000 X10*3/uL (0.0-0.012); NRBC Pct Auto 0.0 /100WBC (0.0-0.2); PLT CLUMP 1; SCAN SMEAR FLAG 1
[2025-07-15 17:36] LABS: Hematocrit 38.1 % (37.0-47.0); Hemoglobin 12.4 g/dl (12.0-16.0); Lymphocytes Absolute Auto 1.4 X10*3/uL (1.2-4.9); Mean Corpuscular HGB Conc 32.5 g/dl (31.0-35.0); Mean Corpuscular Hemoglobin 30.0 pg (27.0-33.0); Mean Corpuscular Volume 92.0 fL (80.0-98.0); Platelet Count 156 X10*3/uL (160-400); Red Blood Count 4.14 X10*6/uL (4.20-5.50); White Blood Count 5.3 X10*3/uL (4.8-10.8)
[2025-07-15 17:55] LABS: Alanine Aminotransferase 13 U/L (0-31); Albumin Level 4.1 g/dL (3.5-5.0); Alkaline Phosphatase 141 U/L (39-117); Anion Gap 10 (12-20); Aspartate Amino Transferase 17 U/L (5-31); Blood Urea Nitrogen 15 mg/dL (9-16); Calcium 9.2 mg/dL (8.4-10.2); Carbon Dioxide 30 mmol/L (22-29); Chloride 103 mmol/L (96-108); Creatinine Clr Calc Pharmacy 56.4; Estimated Glomerular Filt Rate > 60; Lipase 23 U/L (8-78); Magnesium 2.0 mg/dL (1.6-2.6); Potassium 4.2 mmol/L (3.3-5.1); Sodium 139 mmol/L (135-145); Total Protein 6.4 g/dL (6.5-8.0)
[2025-07-15 18:02] LABS: Troponin-I High Sensitivity 2.9 ng/L (<3.5-17.0)
[2025-07-15] MEDS: iohexoL 350 MG/ML 100 ML INFUS..BTL IV (18:09)
--- OUTSIDE RECORDS SUMMARY | 2025-07-15 18:42 | XMS_ITS | Clinical Summary ---
Author Organization [facility] ity Address [address] [place] [address] Care Team Providers Care Cylinder Machine Operator Pulp Drier Name Role Phone Jocelynn Avila MD Primary Care Provider [phone] Medical History Medical History Date Comments Dementia [...] 09/04/2022 Social Influencers of Health Screening 09/04/2022 Depression Screening 10/02/2024 COVID-19 Vaccine ( - 2023-2 5 season) 2025 Influenza Vaccine (#1) 2025 DTaP,Tdap,and Td Vaccines [...] Procedure Name Priority Date/Time Associated Diagnosis Comments [facility] DEXA AXIAL SKELETON Routine 09/26/2023 7:49 AM EST Encounter for screening for osteoporosis from Last 3 Months or Most Recently Relevant to Health Maintenance Results * [facility] DEXA AXIAL SKELETON (09/26/2023 7:49 AM EST) Anatomical Region Laterality Modality Mammography 09/22/2023 3:01 PM EST Narrative 09/26/2023 7:49 AM EST [facility] Diagnostic Imaging Department [address] [place] [address] Patient: GINO BOWEN /Age/Sex: 1940 - 83 - F Unit#: [id number] Location/Status: SPDIMAM/REG CLI Mnemonic[facility] Ordering Physician: DELANEY ASCENCIO NP [facility] Dexa Axial Skeleton - 09/22/23 - [...] probability of hip fracture of 7.2%. Code 78416 Dictating Physician: ZAYRA BAUMAN MD Electronically Signed by: ZAYRA BAUMAN MD Dic Date/Time: 09/26/2348 Sign date/Time: 09/26/23748 Procedure Note Zayra Bauman MD - 11/07/2023 [facility] Diagnostic Imaging Department [address] [place] [address] Patient: ISAELGINO GALINDO/Age/Sex: 1940 - 83 - F Unit#: [id number] Location/Status: [facility]/REG CLI Mnemonic[facility] Ordering Physician: DELANEY ASCENCIO ORGAN TEACHER Susu Dexa Axial Skeleton - 09/22/23 - 1531 Report Status:Signed HISTORY: The patient is an [...] density of the femurs bilaterally is 0.701 gm/yu3muxzw is 70% of that of young normals [...] probability of hip fracture of 7.2%. Code 47265 Dictating Physician: ZAYRA BAUMAN MD Electronically Signed by: ZAYRA BAUMAN MD Dic Date/Time: 09/26/2348 Sign date/Time: 09/26/2349 Delaney Ascencio OPERATOR CONTROL ROOM IMG BI PROCEDURES Final Resu lt from Last 3 Months or Most Recently Relevant to Health Maintenance Care Teams Cylinder Machine Operator Pulp Drier Relationship Specialty Start Date End Date Jocelynn Avila MD [facility] [place] [address] PCP - General Family Medicine 12/30/21
--- OUTSIDE RECORDS SUMMARY | 2025-07-15 18:42 | XMS_ITS | Clinical Summary ---
Author Organization [facility] Address [address] [place] [address] Care Team Providers Care Barn Hand Name Role Phone Daniella Oleary Primary Care Provider [phone] Allergies No known active allergies Medications donepezil (ARICEPT) 10 MG tabletIndications:M edication refill Take 1 tablet (10 mg total) by mouth nightly. 30 tablet 3 4 Active ergocalciferol (VITAMIN D2,DRISDOL) 51903 units CapIndications:Gay min D deficiency Take 1 capsule (50,000 Units total) by mouth once a week. 12 capsule 1 5 Active PANTOprazole (PROTONIX) 40 MG EC tabletIndications:A cute gastritis without hemorrhage, unspecified gastritis type Take 1 tablet (40 mg total) by mouth every morning with breakfast. 90 tablet 1 5 Active escitalopram (LEXAPRO) 20 MG tabletIndications:D epression with anxiety TAKE ONE TABLET BY MOUTH EVERY DAY 90 tablet 1 5 Active famotidine (PEPCID) 20 MG tabletIndications:C hronic GERD Take 1 tablet (20 mg total) by mouth 2 (two) times a day. 180 tablet 1 5 Active levothyroxine (SYNTHROID, LEVOTHROID) 112 MCG tabletIndications:A cquired hypothyroidism TAKE ONE TABLET BY MOUTH EVERY DAY 90 tablet 5 Active propranolol (INDERAL LA) 80 MG 24 hr capsuleIndications: Medication refill,Primary hypertension TAKE ONE CAPSULE BY MOUTH EVERY DAY 90 capsule 1 5 Active rosuvastatin (CRESTOR) 20 MG tabletIndications:H yperlipidemia, unspecified hyperlipidemia type TAKE ONE TABLET BY MOUTH EVERY DAY 90 tablet 1 5 Active gabapentin (NEURONTIN) 300 MG capsuleIndications: Frequent headaches TAKE ONE CAPSULE BY MOUTH TWICE A DAY 180 capsule 1 5 Active Active Problems Problem Noted Date Diagnosed Date [...] Encounters Date Type Department Care Team Description 07/02/2025 [facility]ation [facility] [address] [place] [phone] Daniella Oleary PA 05/30/2025 Scanned Document [facility] [address] [place] [address] Daniella Oleary PA 05/27/2025 Orders Only [facility] Internal [facility] [address] [place] [phone] ProviderAndrea MD 05/22/2025 Refill [facility] Internal [facility] [address] [place] [phone] Daniella Oleary PA Frequent headaches 04/29/2025 Refill [facility] Internal [facility] [address] [place] [phone] Daniella Oleary PA Hyperlipidemia, unspecified hyperlipidemia type 04/22/2025 Refill [facility] Internal [facility] [address] [place] [phone] Daniella Oleary PA Medication refill; Primary hypertension 04/21/2025 Refill [facility] Internal [facility] [address] [place] [phone] Daniella Oleary PA Acquired hypothyroidism 04/18/2025 Orders Only [facility] Department Internal Medicine [place] [address] [place] [phone] Mercedes Escobar LPN Acquired hypothyroidism from Last 3 Months Immunizations Immunization Administration Dates Next Due Covid-19 mRNA Primary Series Vaccine - Moderna 0.5 mL Full Dose 09/03/2021,01/04/2021,11/23/2020 Covid-19 mRNA Omid Protein Seasonal Vaccine - MODERNA 25 mcg/0.25 mL 6 month-11 [...] Description 08/13/2025 1:45 PM EST Office Visit [facility] Department of Internal Medicine [place] [address] [place] [phone] Daniella Oleary PA [address] [place], [place] [address] Health Maintenance Due Date Last Done Comments Advance Care Planning 1940 Pneumococcal Vaccines 50+ (1 of 1 - PCV) 01/06/1990 Zoster (Shingles) Vaccine (1 of 2) 01/06/1990 DXA Bone Density (Females,Ages 65 and older) 01/06/2005 RSV Vaccine 60 years and older and Patients (1 - 1-dose 75+ series) 01/06/2015 Influenza Vaccine 05/02/2025 08/05/2024, , 09/15/2021 COVID-19 Vaccine ( season) 2025 06/29/2023, 09/03/2021, 01/04/2021, Additional history exists DTaP/Tdap/Td Vaccines (2 - Td or Tdap) 12/31/2031 12/30/2021 Hepatitis B Vaccines Aged Out No long er eligible based on patient's age to complete this topic Procedures Procedure Name Priority Date/Time Associated Diagnosis Comments XRAY EXTERNAL RESULT Routine 05/27/2025 2:12 PM EDT XRAY EXTERNAL RESULT Routine 05/27/2025 2:04 PM EDT XRAY EXTERNAL RESULT Routine 05/27/2025 2:02 PM EDT IMAGING RESULT Routine 05/27/2025 1:44 PM EDT IMAGING-SCAN Routine 05/27/2025 1:[address] Routine 05/27/2025 8:[address] Routine 05/27/2025 8:[address] Routine 05/27/2025 8:38 AM EDT XRAY EXTERNAL RESULT Routine 05/27/2025 7:49 AM EDT XRAY EXTERNAL RESULT Routine 05/27/2025 7:45 AM EDT from Last 3 Months Results * X-Ray External Result (05/27/2025 2:12 PM EDT) Only the most recent of5 resultswithin the time period is included. Anatomical Region Laterality Modality Computed Radiogr aphy us External Provider [facility] ORDE CINDY Final Result * Imaging Result (05/27/2025 1:44 PM EDT) Anatomical Region Laterality Modality Other us Daniella BROOKS [facility] LEGACY PROCEDURES Sonia l Result * IMAGING-SCAN (05/27/2025 1:39 PM EDT) Anatomical Region Laterality Modality Other us Daniella BROOKS HX AMB PROCEDURES Final Re sult * Imaging CT Scan (05/27/2025 8:54 AM EDT) Only the most recent of3 resultswithin the time period is included. Anatomical Region Laterality Modality Other us External Provider IMG LEGACY PROCEDURES Final Result from Last 3 Months Insurance [employer] MGD MEDICARE Care Teams Barn Hand Relationship Specialty Start Date End Date Daniella Oleary PA [address] [place] [address] PCP - General Internal Medicine 01/24/24
--- OUTSIDE RECORDS SUMMARY | 2025-07-15 18:42 | XMS_ITS | Encounter Summary ---
Author Organization [facility] Address [address] [place] [address] Care Team Providers Care Er Rn Name Role Phone Delaney Ascencio APRN Primary Care Provider Un available Delaney Ascencio APRN Unavailable Unavaila ble Daniella Oleary Primary Care Provider + [phone] Daniella Oleary Unavailable [phone] Reason for Visit * Reason Comments Medication Refill Encounter Details Date Type Department Care Team (Late st Contact Info) Description 02/25/2023 Refill [facility] Physicians Department of Internal Medicine [place] [address] [place] [address] Delaney Ascencio APRN *need valid [...] Encounters Date Type Department Care Team (Late Contact Info) Description 08/13/2025 1:45 PM EST Office Visit [facility] Physicians Department of Internal Medicine [place] [address] [place] [phone] Daniella Oleary PA [address] [place], [place] [phone] documented as of this encounter Visit Diagnoses Diagnosis Acquired hypothyroidism Unspecified hypothyroidism documented in this encounter Care Teams Er Rn Relationship Specialty Start Date End Date Delaney Ascencio APRN PCP - General 01/23/24 Delaney Ascencio APRN *need valid address PCP - Handy Villalobos MA Attributed 11/02/22 03/01/23 Daniella Oleary PA [address] [place] [address] PCP - General Internal Medicine 01/24/24 Daniella Oleary PA [address] [place] [address] PCP - Handy Sweet MA Attributed 04/01/24 01/29/25 documented as of this encounter
--- OUTSIDE RECORDS SUMMARY | 2025-07-15 18:42 | XMS_ITS | Encounter Summary ---
Author Organization [facility] Address [address] [place] [address] Care Team Providers Care Kohinoor Operator Name Role Phone Delaney Ascencio APRN Primary Care Provider Un available Daniella Oleary Primary Care Provider + [phone] Daniella Oleary Unavailable [phone] Encounter Details Date Type Department Care Team (Late st Contact Info) Description 12/26/2023 Scanned Document [facility] Department of Internal Medicine [place] [address] [place] [address] Delaney Ascencio APRN *need valid [...] 08/13/2025 1:45 PM EST Office Visit [facility] Department of Internal Medicine [place] [address] [place] [phone] Daniella Oleary PA [address] [place] [address] documented as of this encounter Visit Diagnoses Not on filedocumented in this encounter Care Teams Kohinoor Operator Relationship Specialty Start Date End Date Delaney Ascencio MARIA R Hopkins PCP - General 01/23/24 Daniella Oleary PA [address] [place] [address] PCP - General Internal Medicine 01/24/24 Daniella Oleary PA [address] [place] [address] PCP - Handy Sweet MA Attributed 04/01/24 01/29/25 documented as of this encounter
--- OUTSIDE RECORDS SUMMARY | 2025-07-15 18:43 | XMS_ITS | Encounter Summary ---
Author Organization [facility] Address [address] [place] [address] Care Team Providers Care Circular Sawyer Stone Name Role Phone Delaney Ascencio APRN Primary Care Provider Un available Daniella Oleary Primary Care Provider + [phone] Daniella Oleary Unavailable [phone] Encounter Details Date Type Department Care Team (Late st Contact Info) Description 01/19/2024 Scanned Document [facility] Department of Internal Medicine [place] [address] [place] [address] Delaney Ascencio APRN *need valid [...] 08/13/2025 1:45 PM EST Office Visit [facility] Department of Internal Medicine [place] [address] [place] [phone] Daniella Oleary PA [address] [place] [address] documented as of this encounter Visit Diagnoses Not on filedocumented in this encounter Care Teams Circular Sawyer Stone Relationship Specialty Start Date End Date Delaney Ascencio MARIA R Hopkins PCP - General 01/23/24 Daniella Oleary PA [address] [place] [address] PCP - General Internal Medicine 01/24/24 Daniella Oleary PA [address] [place] [address] PCP - Handy Sweet MA Attributed 04/01/24 01/29/25 documented as of this encounter
--- OUTSIDE RECORDS SUMMARY | 2025-07-15 18:43 | XMS_ITS | Encounter Summary ---
Author Organization [facility] Address [address] [place] [address] Care Team Providers Care Industrial Spray Painter Name Role Phone Delaney Ascencio APRN Primary Care Provider Un available Daniella Oleary Primary Care Provider + [phone] Daniella Oleary Unavailable [phone] Reason for Visit * Reason Comments Medication Refill Encounter Details Date Type Department Care Team (Late st Contact Info) Description 03/12/2023 Refill [facility]icians Department of Internal Medicine [place] [address] [place] [address] Delaney Ascencio APRN *need valid [...] 08/13/2025 1:45 PM EST Office Visit [facility] Department of Internal Medicine [place] [address] [place] [phone] Daniella Oleary PA [address] [place], [place] [phone] documented as of this encounter Visit Diagnoses Diagnosis Hyperlipidemia, unspecified hyperlipidemia type documented in this encounter Care Teams Industrial Spray Painter Relationship Specialty Start Date End Date Delaney Ascencio APRN PCP - General 01/23/24 Daniella Oleary PA [address] [place], [place] [phone] PCP - General Internal Medicine 01/24/24 Daniella Oleary PA [address] [place], [place] [id number] PCP - Handy Sweet MA Attributed 04/01/24 01/29/25 documented as of this encounter
--- OUTSIDE RECORDS SUMMARY | 2025-07-15 18:43 | XMS_ITS | Encounter Summary ---
Author Organization [facility] Address [address] [place] [address] Care Team Providers Care Neurological Physiotherapist Name Role Phone Delaney Ascencio APRN Primary Care Provider Un available Daniella Oleary Primary Care Provider + [phone] Daniella Oleary Unavailable +[phone] Encounter Details Date Type Department Care Team (Late st Contact Info) Description 06/27/2023 Scanned Document [facility] Department of Internal Medicine [place] [address] [place] [address] Delaney Ascencio APRN *need valid [...] Description 08/13/2025 1:45 PM EST Office Visit [facility] Department of Internal Medicine [place] [address] [place] [phone] Daniella Oleary PA [address] [place] [address] documented as of this encounter Visit Diagnoses Not on filedocumented in this encounter Care Teams Neurological Physiotherapist Relationship Specialty Start Date End Date Delaney Ascencio MARIA R Hopkins PCP - General 01/23/24 Daniella Oleary PA [address] [place] [address] PCP - General Internal Medicine 01/24/24 Daniella Oleary PA [address] [place] [address] PCP - Handy Sweet MA Attributed 04/01/24 01/29/25 documented as of this encounter
--- OUTSIDE RECORDS SUMMARY | 2025-07-15 18:43 | XMS_ITS | Encounter Summary ---
Author Organization [facility] Address [address] [place] [address] Care Team Providers Care Power Crane Operator Name Role Phone Delaney Ascencio APRN Primary Care Provider Un available Daniella Oleary Primary Care Provider + [phone] Daniella Oleary Unavailable [phone] Encounter Details Date Type Department Care Team (Late st Contact Info) Description 06/03/2023 Scanned Document [facility] Department of Internal Medicine [place] [address] [place] [address] Delaney Ascencio APRN *need valid [...] [facility] Department of Internal Medicine [place] [address] [place] [phone] Daniella Oleary PA [address] [place] [address] documented as of this encounter Visit Diagnoses Not on filedocumented in this encounter Care Teams Power Crane Operator Relationship Specialty Start Date End Date Delaney Ascencio MARIA R Hopkins PCP - General 01/23/24 Daniella Oleary PA [address] [place] [address] PCP - General Internal Medicine 01/24/24 Daniella Oleary PA [address] [place] [address] PCP - Handy Sweet MA Attributed 04/01/24 01/29/25 documented as of this encounter
--- OUTSIDE RECORDS SUMMARY | 2025-07-15 18:43 | XMS_ITS | Encounter Summary ---
Author Organization [facility] Address [address] [place] [address] Care Team Providers Care Chart Clerk Name Role Phone Delaney Ascencio APRN Primary Care Provider Un available Daniella Oleary Primary Care Provider + [phone] Daniella Oleary Unavailable [phone] Encounter Details Date Type Department Care Team (Late st Contact Info) Description 06/02/2023 Scanned Document [facility] Department [facility] Internal Medicine [place] [address] [place] [address] Delaney Ascencio APRN *need valid [...] Description 08/13/2025 1:45 PM EST [facility] Department of Internal Medicine [place] [address] [place] [phone] Daniella Oleary PA [address] [place] [address] documented as of this encounter Visit Diagnoses Not on filedocumented in this encounter Care Teams Chart Clerk Relationship Specialty Start Date End Date Delaney Ascencio MARIA R Hopkins PCP - General 01/23/24 Daniella Oleary PA [address] [place] [address] PCP - General Internal Medicine 01/24/24 Daniella Oleary PA [address] [place] [address] PCP - Handy Sweet MA Attributed 04/01/24 01/29/25 documented as of this encounter
--- OUTSIDE RECORDS SUMMARY | 2025-07-15 18:43 | XMS_ITS | Encounter Summary ---
Author Organization [facility] Address [address] [place] [address] Care Team Providers Care Occupational Health Coordinator Name Role Phone Daniella Oleary Primary Care Provider [phone]- [phone] Encounter Details Date Type Department Care Team (Late st Contact Info) Description 03/20/2025 Scanned Document [facility] Department of Internal Medicine [place] [address] [place] [address] Daniella Oleary PA [address] [place], [place] [phone] Social History Tobacco Use Types Packs/Day Years [...] Description 08/13/2025 1:45 PM EST Office Visit [facility] Department of Internal Medicine [place] [address] [place] [phone] Daniella Oleary PA [address] [place] [address] documented as of this encounter Visit Diagnoses Not on filedocumented in this encounter Care Teams Occupational Health Coordinator Relationship Specialty Start Date End Date Daniella Oleary PA [address] [address] PCP - General Internal Medicine 01/24/24 documented as of this encounter
--- OUTSIDE RECORDS SUMMARY | 2025-07-15 18:43 | XMS_ITS | Encounter Summary ---
Author Organization [facility] Address [address] [place] [address] Care Team Providers Care Co Founder & Ceo Name Role Phone Delaney Ascencio APRN Primary Care Provider Un available Daniella Oleary Primary Care Provider + [phone] Daniella Oleary Unavailable [phone] Encounter Details Date Type Department Care Team (Late st Contact Info) Description 10/25/2023 Scanned Document [facility] Department of Internal Medicine [place] [address] [place] [address] Delaney Ascencio APRN *need valid [...] Description 08/13/2025 1:45 PM EST Office Visit [facility] Department of Internal Medicine [place] [address] [place] [phone] Daniella Oleary PA [address] [place] [address] documented as of this encounter Visit Diagnoses Not on filedocumented in this encounter Care Teams Co Founder & Ceo Relationship Specialty Start Date End Date Delaney Ascencio MARIA R Hopkins PCP - General 01/23/24 Daniella Oleary PA [address] [place] [address] PCP - General Internal Medicine 01/24/24 Daniella Oleary PA [address] [place] [address] PCP - Handy Sweet MA Attributed 04/01/24 01/29/25 documented as of this encounter
--- OUTSIDE RECORDS SUMMARY | 2025-07-15 18:43 | XMS_ITS | Clinical Summary ---
Author Organization [facility] Address [address] [facility] [address] [place] [address] Phone Care Team Providers Care Technician Automated Equipment Name Role Phone Pcp, Unknown Primary Care Provider Unavailabl e Encounters Date Type Department Care Team Description 06/17/2025 6:04 AM EDT - 06/17/2025 11:59 PM EDT Hospital Encounter [facility] Laboratory [address] [place] [address] Kobi Israel MD Discharge Disposition: Home or Self Care 06/17/2025 Transcribe Orders [facility] Specimen Processing [address] [place] [address] Kobi Israel MD Myxedema heart disease (Primary Dx); Obstructive sleep apnea (adult) (pediatric); Gastroesophageal reflux disease, unspecified whether esophagitis present; Essential hypertension, malignant; Somatosensory attacks; Hyperlipidemia, unspecified hyperlipidemia type 06/10/2025 9:04 AM EDT - 06/10/2025 11:59 PM EDT Hospital Encounter [facility] Laboratory [address] [place] [address] Kobi Israel MD Discharge Disposition: Home or Self Care 06/04/2025 7:23 AM EDT - 06/04/2025 11:59 PM EDT Hospital Encounter [facility] Laboratory [address] [place] [address] Kobi Israel MD Discharge Disposition: Home or Self Care 06/04/2025 Transcribe Orders [facility] Specimen Processing [address] [place] [address] Kobi Israel MD Essential hypertension, malignant (Primary Dx) 05/30/2025 10:04 AM EDT - 05/30/2025 11:59 PM EDT Hospital Encounter [facility] Laboratory [address] [place] [address] Kobi Israel MD Discharge Disposition: Home or Self Care from Last 3 Months Social History Tobacco Use Types Packs/Day Years Used Date Smoking Tobacco: Never Assessed Education Answer Date Recorded Are you interested in more education? Not on jeffery e 05/30/2025 Are you concerned about learning? Not on file 05/30/2025 No 05/30/2025 No 05/30/2025 Digital Access Answer Date Recorded No 05/30/2025 No 05/30/2025 Reliable internet access at home? Not on file 05/30/2025 Device with a working camera? Not on file Comments Unknown Sex and Gender Information Value Date Recorded Sex Assigned at Not on file Legal Sex Female 9:35 AM EDT Gender Identity Not on file Sexual Orientation Not on file Plan of Treatment Not on file Medical Devices Not on file Procedures Procedure Name Priority Date/Time Associated Diagnosis Comments CBC AND DIFFERENTIAL Routine 06/17/2025 4:40 AM EDT Myxedema heart disease Obstructive sleep apnea (adult) (pediatric) Gastroesophageal reflux disease, unspecified whether esophagitis present Essential hypertension, malignant Somatosensory attacks Hyperlipidemia, unspecified hyperlipidemia type BASIC METABOLIC PANEL Routine 06/17/2025 4:40 AM EDT Myxedema heart disease Obstructive sleep apnea (adult) (pediatric) Gastroesophageal reflux disease, unspecified whether esophagitis present Essential hypertension, malignant Somatosensory attacks Hyperlipidemia, unspecified hyperlipidemia type CBC AND DIFFERENTIAL Routine 06/10/2025 7:33 AM EDT Gastroesophageal reflux disease without esophagitis Somatosensory attacks Myxedema heart disease Hyperlipidemia, unspecified hyperlipidemia type BASIC METABOLIC PANEL Routine 06/10/2025 7:33 AM EDT Gastroesophageal reflux disease without esophagitis Somatosensory attacks Myxedema heart disease Hyperlipidemia, unspecified hyperlipidemia type CBC Routine 06/04/2025 6:25 AM EDT Essential hypertension, malignant COMPREHENSIVE METABOLIC PANEL Routine 06/04/2025 6:25 AM EDT Essential hypertension, malignant CBC Routine 05/30/2025 5:38 AM EDT Hypertension, unspecified type BASIC METABOLIC PANEL Routine 05/30/2025 5:38 AM EDT Hypertension, unspecified type from Last 3 Months Results * (ABNORMAL) CBC and differential (06/17/2025 4:40 AM EDT) Only the most recent of2 resultswithin the time period is included. WBC 4.52 4.00 - 11.00 K/uL [facility] RBC 3.78(L) 4.00 - 5.20 M/uL [facility] HGB 11.7(L) 12.0 - 16.0 g/dL [facility] HCT 35.3(L) 36.0 - 46.0 % [facility] PLT 143(L) 150 - 450 K/uL [facility] MCV 93.4 80.0 - 100.0 fL [facility] MCH 31.0 27.0 - 31.0 pg [facility] MCHC 33.1 32.0 - 36.0 g/dL [facility] RDW 13.1 11.5 - 14.5 % [facility] MPV 10.3 8.4 - 12.0 fL [facility] NRBC 0.00 0.00 /100 WBCs [facility] ABSOLUTE NRBC 0.00 0.00 K/uL [facility] DIFF METHOD Auto [facility] NEUTS 47.7(L) 48.0 - 76.0 % [facility] LYMPHS 36.5 18.0 - 41.0 % [facility] MONOS 12.8(H) 4.0 - 11.0 % [facility] EOS 2.4 0.0 - 5.0 % [facility] BASOS 0.4 0.0 - 1.5 % [facility] Granulocytes, immature (%) 0.2 0.0 - 0.9 % [facility] ABSOLUTE NEUTS 2.15 1.92 - 7.60 K/uL [facility] ABSOLUTE LYMPHS 1.65 0.72 - 4.10 K/uL [facility] ABSOLUTE MONOS 0.58 0.16 - 1.10 K/uL [facility] ABSOLUTE EOS 0.11 0.00 - 0.50 K/uL [facility] ABSOLUTE BASOS 0.02 0.00 - 0.15 K/uL [facility] Granulocytes, immature 0.01 0.00 - 0.09 K/uL [facility] Blood 06/17/2025 4:40 AM EDT 06/17/2025 6:16 AM EDT us Kobi Israel MD LAB BLOOD ORDERABLES Final Resul t Performing Organization Address City/[facility] Co de Phone Number [address] [address] * (ABNORMAL) Basic metabolic panel (06/17/2025 4:40 AM EDT) Only the most recent of3 resultswithin the time period is included. SODIUM 140 133 - 146 mmol/L [facility] CHLORIDE 103 96 - 108 mmol/L [facility] POTASSIUM 4.1 3.3 - 5.1 mmol/L [facility] Comment:Specimen slightly he molyzed, result may be falsely elevated. CO2 25 21 - 35 mmol/L [facility] BUN 12 6 - 19 mg/dL [facility] CREATININE 0.70 0.5 - 1.5 mg/dL [facility] GLUCOSE 100(H) 70 - 99 mg/dL [facility] CALCIUM 9.2 8.4 - 10.3 mg/dL [facility] EGFR 85 >59 mL/min/1.7 3m2 [facility] Comment:Estimated glomerular filtration rate calculated using the CKD-EPI refit equation. ANION GAP 16 10 - 20 mmol/L [facility] Blood 06/17/2025 4:40 AM EDT 06/17/2025 6:16 AM EDT us Kobi Israel MD LAB BLOOD ORDERABLES Final Resul t Performing Organization Address City/[facility]/ZIP Co de Phone Number [address] [address] * (ABNORMAL) Comprehensive metabolic panel (06/04/2025 6:25 AM EDT) SODIUM 139 133 - 146 mmol/L [facility] POTASSIUM 4.9 3.3 - 5.1 mmol/L [facility] Comment:Specimen slightly he molyzed, result may be falsely elevated. CHLORIDE 102 96 - 108 mmol/L [facility] CO2 29 21 - 35 mmol/L [facility] BUN 22(H) 6 - 19 mg/dL [facility] CREATININE 0.70 0.5 - 1.5 mg/dL [facility] GLUCOSE 100(H) 70 - 99 mg/dL [facility] ALBUMIN 3.6(L) 3.9 - 4.8 g/dL [facility] TOTAL PROTEIN 5.7(L) 6.5 - 8.0 g/dL [facility] CALCIUM 9.1 8.4 - 10.3 mg/dL [facility] ALKALINE PHOSPHATASE 143(H) 39 - 117 U/L [facility] TOTAL BILIRUBIN <0.2 0.0 - 1.2 mg/dL [facility] AST 11 0 - 37 U/L [facility] ALT 8 0 - 40 U/L [facility] GLOBULIN 2.1 1 - 4.8 g/dL [facility] EGFR 85 >59 mL/min/1.7 3m2 [facility] Comment:Estimated glomerular filtration rate calculated using the CKD-EPI refit equation. ANION GAP 13 10 - 20 mmol/L [facility] Blood 06/04/2025 6:25 AM EDT 06/04/2025 8:22 AM EDT us Kobi Israel MD LAB BLOOD ORDERABLES Final Resul t [address] [address] * (ABNORMAL) CBC (06/04/2025 6:25 AM EDT) Only the most recent of2 resultswithin the time period is included. WBC 5.30 4.00 - 11.00 K/uL [facility] RBC 4.23 4.00 - 5.20 M/uL [facility] HGB 12.7 12.0 - 16.0 g/dL [facility] HCT 39.8 36.0 - 46.0 % [facility] PLT 170 150 - 450 K/uL [facility] MCV 94.1 80.0 - 100.0 fL [facility] MCH 30.0 27.0 - 31.0 pg [facility] MCHC 31.9(L) 32.0 - 36.0 g/dL [facility] RDW 13.1 11.5 - 14.5 % [facility] MPV 10.4 8.4 - 12.0 fL [facility] NRBC 0.00 0.00 /100 WBCs [facility] ABSOLUTE NRBC 0.00 0.00 K/uL [facility] Blood 06/04/2025 6:25 AM EDT 06/04/2025 8:22 AM EDT us Kobi Israel MD LAB BLOOD ORDERABLES Final Resul t [facility] [address] [place] [address] from Last 3 Months Care Teams Technician Automated Equipment Relationship Specialty Start Date End Date Pcp, Unknown PCP - General 05/30/25 Additional Source Comments The information contained in this document represents components of the legal health record. It is not the complete legal health record.[facility]
--- OUTSIDE RECORDS SUMMARY | 2025-07-15 18:43 | XMS_ITS | Encounter Summary ---
Author Organization [facility] Address [address] [place] [address] Care Team Providers Care Oracle Database Analyst Name Role Phone Delaney Ascencio APRN Primary Care Provider Un available Delaney Ascencio APRN Unavailable Unavaila ble Daniella Oleary Primary Care Provider + [phone] Daniella Oleary Unavailable [phone] Reason for Visit * Reason Comments Medication Refill Encounter Details Date Type Department Care Team (Late st Contact Info) Description 01/16/2023 Refill [facility] Department of Internal Medicine [place] [address] [place] [address] Delaney Ascencio APRN *need valid [...] Description 08/13/2025 1:45 PM EST Office Visit [facility] Department of Internal Medicine [place] [address] [place] [phone] Daniella Oleary PA [address] [place], [place] [phone] documented as of this encounter Visit Diagnoses Diagnosis Frequent headaches documented in this encounter Care Teams Oracle Database Analyst Relationship Specialty Start Date End Date Delaney Ascencio APRN PCP - General 01/23/24 Delaney Ascencio APRN *need valid address PCP - Handy Villalobos MA Attributed 11/02/22 03/01/23 Daniella Oleary PA [address] [place] [address] PCP - General Internal Medicine 01/24/24 Daniella Oleary PA [address] [place] [address] PCP - Handy Sweet MA Attributed 04/01/24 01/29/25 documented as of this encounter
--- OUTSIDE RECORDS SUMMARY | 2025-07-15 18:43 | XMS_ITS | Encounter Summary ---
Author Organization [facility] Address [address] [place] [address] Care Team Providers Care Commission Clerk Name Role Phone Daniella Oleary Primary Care Provider [phone]- [phone] Encounter Details Date Type Department Care Team (Late st Contact Info) Description 03/14/2025 Scanned Document [facility] Department of Internal Medicine [place] [address] [place] [address] Daniella Oleary PA [address] [place], [place] [phone] Social History Tobacco Use Types Packs/Day Years [...] Description 08/13/2025 1:45 PM EST Office Visit [facility] Department of Internal Medicine [place] [address] [place] [phone] Daniella Oleary PA [address] [place] [address] documented as of this encounter Visit Diagnoses Not on filedocumented in this encounter Care Teams Commission Clerk Relationship Specialty Start Date End Date Daniella Oleary PA [address] [address] PCP - General Internal Medicine 01/24/24 documented as of this encounter
--- OUTSIDE RECORDS SUMMARY | 2025-07-15 18:43 | XMS_ITS | Encounter Summary ---
Author Organization [facility] Address [address] [place] [address] Care Team Providers Care [employer] Chief Creative Officer Name Role Phone Delaney Ascencio APRN Primary Care Provider Un available Daniella Oleary Primary Care Provider + [phone] Daniella Oleary Unavailable [phone] Encounter Details Date Type Department Care Team (Late st Contact Info) Description 06/09/2023 Scanned Document [facility] Department of Internal Medicine [place] [address] [place] [address] Delaney Ascencio APRN *need valid [...] 08/13/2025 1:45 PM EST Office Visit [facility] Department of Internal Medicine [place] [address] [place] [phone] Daniella Oleary PA [address] [place] [address] documented as of this encounter Visit Diagnoses Not on filedocumented in this encounter Care Teams World[employer] Chief Creative Officer Relationship Specialty Start Date End Date Delaney Ascencio MARIA R Hopkins PCP - General 01/23/24 Daniella Oleary PA [address] [place] [address] PCP - General Internal Medicine 01/24/24 Daniella Oleary PA [address] [place] [address] PCP - Handy Sweet MA Attributed 04/01/24 01/29/25 documented as of this encounter
--- OUTSIDE RECORDS SUMMARY | 2025-07-15 18:43 | XMS_ITS | Encounter Summary ---
Author Organization [facility] Address [address] [place] [address] Care Team Providers Care Refined Syrup Operator Name Role Phone Delaney Ascencio APRN Primary Care Provider Un available Daniella Oleary Primary Care Provider Daniella Oleary Unavailable [phone] Encounter Details Date Type Department Care Team (Late st Contact Info) Description 01/02/2024 Scanned Document [facility] Department of Internal Medicine [place] [address] [place] [address] Delaney Ascencio APRN *need valid address Social [...] * Question Answer Date of Assessment Author PHQ-2 Total Score 0 01/03/2024 12: 17 PM Delaney Hussein APRN Little interest or pleasure in doing things [...] all 01/03/2024 12:17 PM Delaney Hussein APRN PHQ-9 Total Score 3 01/03/2024 12: 17 PM EDT Delaney Ascencio APRN documented as of this encounter Plan of Treatment Upcoming Encounters Date Type Department Care Team (Late st Contact Info) Description 08/13/2025 1:45 PM EST Office Visit [facility] Department of Internal Medicine [place] [address] [place] [address] Daniella Oleary PA [address] [place] [address] documented as of this encounter Visit Diagnoses Not on filedocumented in this encounter Care Teams Refined Syrup Operator Relationship Specialty Start Date End Date Delaney Ascencio APRN PCP - General 01/23/24 Daniella Oleary PA [address] [place] [address] PCP - General Internal Medicine 01/24/24 Daniella Oleary PA [address] [place] [address] PCP - Handy Sweet MA Attributed 04/01/24 01/29/25 documented as of this encounter
--- OUTSIDE RECORDS SUMMARY | 2025-07-15 18:43 | XMS_ITS | Encounter Summary ---
Author Organization [facility] Address [address] [place] [address] Care Team Providers Care Molded Goods Controls Operator Name Role Phone Delaney Ascencio APRN Primary Care Provider Un available Daniella Oleary Primary Care Provider + [phone] Daniella Oleary Unavailable [phone] Encounter Details Date Type Department Care Team (Late st Contact Info) Description 01/01/2024 Scanned Document [facility] Department of Internal Medicine [address] [address] eDlaney Ascencio APRN *need valid address Social History [...] Visit [facility] Department of Internal Medicine [place] [address] [place] [address] Daniella Oleary PA [address] [place] [address] documented as of this encounter Visit Diagnoses Not on filedocumented in this encounter Care Teams Molded Goods Controls Operator Relationship Specialty Start Date End Date Delaney Ascencio APRN PCP - General 01/23/24 Daniella Oleary PA [address] [place] [address] PCP - General Internal Medicine 01/24/24 Daniella Oleary PA [address] [place] [address] PCP - Handy Sweet MA Attributed 04/01/24 01/29/25 documented as of this encounter
--- OUTSIDE RECORDS SUMMARY | 2025-07-15 18:43 | XMS_ITS | Clinical Summary ---
Author Organization [facility] Address [address] [place] [address] Care Team Providers Care System Validation Engineer Name Role Phone Jocelynn Avila MD Primary Care Provider [phone] Allergies No known active allergies Medications Medication [...] age to complete this topic Care Teams System Validation Engineer Relationship Specialty Start Date End Date Jocelynn Avila MD [address] [facility] [place] [address] PCP - General Family Medicine 12/30/21
--- OUTSIDE RECORDS SUMMARY | 2025-07-15 18:43 | XMS_ITS | Encounter Summary ---
Author Organization [facility] Address [address] [place] [address] Care Team Providers Care Ocular Care Technologist Name Role Phone Delaney Ascencio APRN Primary Care Provider Un available Daniella Oleary Primary Care Provider + [phone] Daniella Oleary Unavailable [phone] Reason for Visit * Reason Comments Medication Refill Encounter Details Date Type Department Care Team (Late st Contact Info) Description 05/08/2023 Refill [facility] Department of Internal Medicine [place] [address] [place] [address] Delaney Ascecnio APRN *need valid address Chronic GERD (Primary [...] Visit [facility] Department of Internal Medicine [place] [address] [place] [phone] Daniella Oleary PA [address] [place], [place] [phone] documented as of this encounter Visit Diagnoses Diagnosis Chronic GERD- Primary Vitamin D deficiency Hyperlipidemia, unspecified hyperlipidemia type documented in this encounter Care Teams Ocular Care Technologist Relationship Specialty Start Date End Date Delaney Ascencio APRN PCP - General 01/23/24 Daniella Oleary PA [address] [place] [address] PCP - General Internal Medicine 01/24/24 Daniella Oleary PA [address] [place], [place] [id number] PCP - Handy Sweet MA Attributed 04/01/24 01/29/25 documented as of this encounter
--- OUTSIDE RECORDS SUMMARY | 2025-07-15 18:43 | XMS_ITS | Encounter Summary ---
Author Organization [facility] Address [address] [place] [address] Care Team Providers Care Control Room Agent Name Role Phone Daniella Oleary Primary Care Provider [phone] Encounter Details Date Type Department Care Team (Late st Contact Info) Description 05/30/2025 Scanned Document [facility] Department of Internal Medicine [place] [address] [place] [address] Daniella Oleary PA [address] [place], [place] [phone] Social History Tobacco Use Types Packs/Day Years [...] [facility] Department of Internal Medicine [place] [address] [place] [phone] Daniella Oleary PA [address] [place] [address] documented as of this encounter Visit Diagnoses Not on filedocumented in this encounter Care Teams Control Room Agent Relationship Specialty Start Date End Date Daniella Oleary PA [address] [address] PCP - General Internal Medicine 01/24/24 documented as of this encounter
--- OUTSIDE RECORDS SUMMARY | 2025-07-15 18:43 | XMS_ITS | Encounter Summary ---
Author Organization [facility] Address [address] [place] [address] Care Team Providers Care Nutrition Teacher Name Role Phone Daniella Oleary Primary Care Provider + [phone] Daniella Oleary Unavailable [phone] Encounter Details Date Type Department Care Team (Late Contact Info) Description 11/18/2024 Scanned Document [facility] Department of Internal Medicine [place] [address] [place] [phone] Daniella Oleary PA [address] [place] [address] Social History Tobacco Use Types [...] Visit [facility] Department of Internal Medicine [place] [address] [place] [phone] Daniella Oleary PA [address] [place] [address] documented as of this encounter Visit Diagnoses Not on filedocumented in this encounter Care Teams Nutrition Teacher Relationship Specialty Start Date End Date Daniella Oleary PA [address] [place] [address] PCP - General Internal Medicine 01/24/24 Daniella Oleary PA [address] [place], [place] [phone] PCP - Handy Sweet MA Attributed 04/01/24 01/29/25 documented as of this encounter
--- OUTSIDE RECORDS SUMMARY | 2025-07-15 18:43 | XMS_ITS | Data Portability ---
Author Organization [place] [facility] Address [address] [place] [phone] Assessment Encounter Date Assessment Date Assessment LastModified [...] as risk of infection of a medical radiation dosimetrist, scar, wound healing. There is an implanted [...] scheduling to coordinate a time for implantation [email or web address] Not available 03/27/2024 12:33:06 06/27/2024 06/27/2024 Patient [...] system (PROC) - INSPIRE implant 2023 024 [email or web address] Not available 16:54:43 Surgeries None recorded. Imaging None recorded. Medication Orders None recorded. Patient TargetsNo targets recorded. Patient InstructionsNo instructions recorded. Reason for Referral None Reported. Results Created Date Observation Date Name Description Value Unit Range Abnormal Flag Note LastModifiedBy Organization Detail LastModifiedTime 05/22/2004/17/2023 nonai ng/sourav márquez tic resul t No observ ation record ed. [email or web address] Not Available 05:49:49 Result Notes None recorded. Problems Name Problem SNOMED Code Status Onset Date Resolution Date Notes Provider Name and Address Organization Details Recorded Time Obstructiv e sleep apnea syndrome 70809812 Active 2022 Obstructiv e sleep apnea (adult) (pediatric ); Note: Date Diagnosed: 08/30/2023 12:32 PM (G47.33) Note: Date Diagnosed: 08/30/2023 12:32 PM (G47.33) AUREA JACINTO MD [address] [place] [address], [place], [phone], [facility] - [facility] 4 11:43:41 Body mass index 25-29 - overweight 928662789 Active 2023 AUREA JACINTO MD [address] [place] [address], [place], [phone], [facility] - [facility] 4 13:29:10 Problem Notes None recorded. 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 Procedure [...] release 24 hr active Medicatio n ID: [id number] Br and Name: divalproe x Send Method: E-Prescri bed Subs Allowed: subs OK Medica tionGener icName: divalproe x Not Available Not Available Not Available rosuvastat in 20 mg tablet TAKE 1 TABLET BY MOUTH EVERY DAY active Not Available Not Available No t Available Vascepa 1 gram capsule active Medicatio n ID: [id number] Br and Name: Cinthya S end Method: E-Prescri bed Subs Allowed: subs OK Medica tionGener icName: Vascepa Not Available Not Available Not Available Qulipta 60 mg tablet active Not Available Not Available No t Available Vitals Date Recorded Body height Body mass index (BMI) Body weight Provider Name and Address Organization Details Last Updated DateTime 06/27/2024 160.02 cm 28 kg/m2 03948.59 g Audie Thrasher [place] - [facility] 06/27/2024 11:09:04 Social History None recorded. Functional Status None recorded. Mental Status None recorded. Family History Nothing Reported. Medical History No medical history recorded. Gynecological HistoryNo gynecological history recorded. Obstetrics History GPAL:G 0 P 0 0 0 0 Past Encounters Encounter ID Performer Location Encounter Start Date Encounter Closed Date Diagnosis/Indication Diagnosis SNOMED-CT Code Diagnosis ICD10 Code Diagnosis IMO Codes Diagnosis Note [id number] AUREA JACINTO MD [email or web address] [address] [place] [address] 03/18/2024 00:27:42 03/18/2024 00:27:42 Obstructive sleep apnea syndrome 57054352 G47.33 [id number] AUREA JACINTO MD [facility] - [address] [address] 03/27/2024 13:19:07 03/27/2024 13:29:44 Obstructive sleep apnea syndrome 14246505 G47.33 Milagro is her caregiver and understand s the expectatio ns of activation and deactivati on of device each night. Body mass index 25-29 - overweight 158694127 Z68.29 [id number] MELANI FALL PA-C [facility] - [facility] [address] [place] [address] 06/27/2024 10:54:38 06/27/2024 11:32:18 Obstructive sleep apnea syndrome 67510941 G47.33 Postoperative care 37102 9007 Z48.89 Health Concerns Section Related Observation LastModified by Organization Detai ls LastModified Time None Recorded Concern Status LastModified by Organization Details LastModified Time None Recorded Advance Directives Directive None Recorded Payers Insurance Date Sequence Insurance Name Policy Number Policy Cisneros Covered Member ID Cisneros Member ID Guarantor Name 06/29/2024 1 [employer] [id number] Hollie Bowen [id number] Hollie Bowen Notes Date Note Type Note Provider Name and Address Organization Details Recorded Time 03/27/2024 text/html ROS as noted in the HPI TERA - Inspire consult DISE 03/18/24 - Good anatomical candidate for INSPIREBonnie (daughter)split night [facility] [place] 04/17/23BMI - 28AHI - 27central & mixed - no eventsCPAP - tried 3 different masks but was removing it at night - sensation of being choked.tried adjusting force of the air pressurePMHx - dementiauses bathroom 1-2 times per nightfalls asleep wellno hx of throat or nose surgery AUREA JACINTO MD [address] [place] [address], [address], [place] [facility] 03/27/2024 13:29:28 06/27/2024 text/html ROS as noted in the HPI 84-year-old female presents status post inspire implant on 06/20/[address] Jacinto. She is doing well postoperatively without any concerns. She is on her last dose of antibiotics. AUREA JACINTO MD [address] [place] [address], [phone], [place] [facility] 06/27/2024 16:56:52 OBGyn Episode No OBEpisode recorded.
--- OUTSIDE RECORDS SUMMARY | 2025-07-15 18:43 | XMS_ITS | Encounter Summary ---
Author Organization [facility] Address [address] [place] [address] Care Team Providers Care Showroom Salesperson Name Role Phone Delaney Ascencio APRN Primary Care Provider Un available Daniella Oleary Primary Care Provider + [phone] Daniella Oleary Unavailable [phone] Encounter Details Date Type Department Care Team (Late st Contact Info) Description 12/28/2023 Scanned Document [facility] Department of Internal Medicine [address] [phone] Delaney Ascencio APRN *need valid address Social [...] 08/13/2025 1:45 PM EST Office Visit [facility] Department of Internal Medicine [place] [address] [place] [phone] Daniella Oleary PA [address] [place] [address] documented as of this encounter Visit Diagnoses Not on filedocumented in this encounter Care Teams Showroom Salesperson Relationship Specialty Start Date End Date Delaney Ascencio MARIA R [place] PCP - General 01/23/24 Daniella Oleary PA [address] [place] [address] PCP - General Internal Medicine 01/24/24 Daniella Oleary PA [address] [place] [address] PCP - Handy Sweet MA Attributed 04/01/24 01/29/25 documented as of this encounter
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
[2025-07-15 20:39] VITALS: BP 152/72; PULSE 55; RESP 18; TEMP 36.4; O2SAT 95
[2025-07-15 20:44] LABS: Appearance Urine Clear; Glucose Urine UA Negative (Negative); PH 8.0 (5.0-9.0); Specific Gravity - Urine >= 1.030 (1.005-1.025); UMIC TRIGGER UACC YES
[2025-07-15 21:18] VITALS: BP 152/72; PULSE 55; RESP 18; TEMP 36.4; O2SAT 95
== END 2025-07-15 21:19 | disposition home or self-care (01) ==
PROVIDERS: Emergency Medicine; Emergency Provider Emergency Medicine Emergency Medical Services
DX: I71.40 Abdominal aortic aneurysm, without rupture, unspecified (principal); I10 Essential (primary) hypertension; F03.90 Unspecified dementia, unspecified severity, without behavioral disturbance, psychotic disturbance, mood disturbance, and anxiety; Z87.19 Personal history of other diseases of the digestive system; Z79.899 Other long term (current) drug therapy
CPT/HCPCS: 36415; 74177; 80048; 80076; 81001; 83690; 83735; 84484; 85025; 93005; 99285; Q9967

== ENCOUNTER → 2025-07-15 16:58 | Outpatient (BNV) | payer MEDICARE, SELFPAY | PROVIDERS: Emergency Provider Emergency Medicine Emergency Medical Services; Visit Provider Radiology Diagnostic Radiology | DX: K57.90 Diverticulosis of intestine, part unspecified, without perforation or abscess without bleeding (principal); I71.43 Infrarenal abdominal aortic aneurysm, without rupture; I71.40 Abdominal aortic aneurysm, without rupture, unspecified; I70.0 Atherosclerosis of aorta | CPT/HCPCS: 74177 ==

== ENCOUNTER → 2025-07-15 16:58 | Outpatient (BNV) | payer MEDICARE, SELFPAY | PROVIDERS: Emergency Provider Emergency Medicine Emergency Medical Services; Visit Provider Internal Medicine Cardiovascular Disease | DX: I44.7 Left bundle-branch block, unspecified (principal); R00.1 Bradycardia, unspecified | CPT/HCPCS: 93010 ==

== ENCOUNTER 2025-07-17 14:02 | Outpatient (AMB) | payer MEDICARE, SELFPAY ==
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
[2025-07-17 14:06] VITALS: BMI 29.4
--- OUTSIDE RECORDS SUMMARY | 2025-07-17 17:47 | XMS_ITS | Encounter Summary ---
Author Organization [facility] Address [address] [place] [address] Care Team Providers Care Forming Process Worker Name Role Phone Delaney Ascencio APRN Primary Care Provider Un available Daniella Oleary Primary Care Provider + [phone] Daniella Oleary Unavailable [phone] Encounter Details Date Type Department Care Team (Late st Contact Info) Description 12/26/2023 Scanned Document [facility] Department of Internal Medicine [place] [address] [place] [address] Delaney Ascencio APRN *need valid [...] Description 08/13/2025 1:45 PM EST Office Visit [facility] Department of Internal Medicine [place] [address] [place] [address] Daniella Oleary PA [address] [place] [address] documented as of this encounter Visit Diagnoses Not on filedocumented in this encounter Care Teams Forming Process Worker Relationship Specialty Start Date End Date Delaney Ascencio MARIA R [place] PCP - General 01/23/24 Daniella Oleary PA [address] [place] [address] PCP - General Internal Medicine 01/24/24 Daniella Oleary PA [address] [place] [address] PCP - Handy Sweet MA Attributed 04/01/24 01/29/25 documented as of this encounter
--- OUTSIDE RECORDS SUMMARY | 2025-07-17 17:47 | XMS_ITS | Clinical Summary ---
Author Organization [facility] ity Address [address] [place] [address] Care Team Providers Care Dependency Case Manager Name Role Phone Jocelynn Avila MD Primary Care Provider [phone] Medical History Medical History Date Comments Dementia [...] Name Priority Date/Time Associated Diagnosis Comments [facility] DEXA AXIAL SKELETON Routine 09/26/2023 7:49 AM EST Encounter for screening for osteoporosis from Last 3 Months or Most Recently Relevant to Health Maintenance Results * [facility] DEXA AXIAL SKELETON (09/26/2023 7:49 AM EST) Anatomical Region Laterality Modality Mammography 09/22/2023 3:01 PM EST Narrative 09/26/2023 7:49 AM EST [facility] Diagnostic Imaging Department [address] [place] [address] Patient: GINO BOWEN /Age/Sex: 1940 - 83 - F Unit#: [id number] Location/Status: SPDIMAM/REG CLI Mnemonic/[facility]ing [facility] Ordering Physician: DELANEY ASCENCIO NP [facility] Dexa Axial Skeleton - 09/22/23 - 1533 [...] probability of hip fracture of 7.2%. Code 00933 Dictating Physician: ZAYRA BAUMAN MD Electronically Signed by: ZAYRA BAUMAN MD Dic Date/Time: 09/26/2348 Sign date/Time: 09/26/23748 Procedure Note Zayra Bauman MD - 11/07/2023 [facility] Diagnostic Imaging Department [address] [place] [address] Patient: ISAELGINO GALINDO/Age/Sex: 1940 - 83 - F Unit#: [id number] Location/Status: [facility]/REG CLI Mnemonic/[facility] Ordering Physician: DELANEY ASCENCIO SHEET ROCK INSTALLER [facility] Dexa Axial Skeleton - 09/22/23 - 153 Report Status:Signed HISTORY: The patient is an [...] density of the femurs bilaterally is 0.701 gm/fz2mpdsy is 70% of that of young normals [...] probability of hip fracture of 7.2%. Code 76317 Dictating Physician: ZAYRA BAUMAN MD Electronically Signed by: ZAYRA BAUMAN MD Dic Date/Time: 09/26/2348 Sign date/Time: 09/26/2349 Delaney Ascencio COMPLIANCE DIRECTOR IMG BI PROCEDURES Final Resu lt from Last 3 Months or Most Recently Relevant to Health Maintenance Care Teams Dependency Case Manager Relationship Specialty Start Date End Date Jocelynn Avila MD [address] [facility] [place] [address] PCP - General Family Medicine 12/30/21
--- OUTSIDE RECORDS SUMMARY | 2025-07-17 17:47 | XMS_ITS | Encounter Summary ---
Author Organization [facility] Address [address] [place] [address] Care Team Providers Care Online Marketing Manager Name Role Phone Delaney Ascencio APRN Primary Care Provider Un available Delaney Ascencio APRN Unavailable Unavaila ble Daniella Oleary Primary Care Provider + [phone] Daniella Oleary Unavailable [phone] Reason for Visit * Reason Comments Medication Refill Encounter Details Date Type Department Care Team (Late st Contact Info) Description 01/16/[address] [facility] Department of Internal Medicine [place] [address] [place] [address] Delaney Ascencio APRN *need valid [...] Description 08/13/2025 1:45 PM EST Office Visit [facility] Department of Internal Medicine [place] [address] [place] [address] Daniella Oleary PA [address] [place], [place] [address] documented as of this encounter Visit Diagnoses Diagnosis Frequent headaches documented in this encounter Care Teams Online Marketing Manager Relationship Specialty Start Date End Date Delaney Ascencio APRN PCP - General 01/23/24 Delaney Ascencio APRN *need valid address PCP - Handy Villalobos MA Attributed 11/02/22 03/01/23 Daniella Oleary PA [address] [place] [address] PCP - General Internal Medicine 01/24/24 Daniella Oleary PA [address] [place] [address] PCP - Handy Sweet MA Attributed 04/01/24 01/29/25 documented as of this encounter
--- OUTSIDE RECORDS SUMMARY | 2025-07-17 17:47 | XMS_ITS | Encounter Summary ---
Author Organization [facility] Address [address] [place] [address] Care Team Providers Care Electrode Turner And Finisher Name Role Phone Delaney Ascencio APRN Primary Care Provider Un available Daniella Oleary Primary Care Provider + [phone] Daniella Oleary Unavailable [phone] Encounter Details Date Type Department Care Team (Late st Contact Info) Description 01/19/2024 Scanned Document [facility] Department of Internal Medicine [place] [address] [place] [address] Delaney Ascencio APRN *need valid [...] Description 08/13/2025 1:45 PM EST Office Visit [facility] Department of Internal Medicine [place] [address] [place] [address] Daniella Oleary PA [address] [place] [address] documented as of this encounter Visit Diagnoses Not on filedocumented in this encounter Care Teams Electrode Turner And Finisher Relationship Specialty Start Date End Date Delaney Ascencio MARIA R [place] PCP - General 01/23/24 Daniella Oleary PA [address] [place] [address] PCP - General Internal Medicine 01/24/24 Daniella Oleary PA [address] [place] [address] PCP - Handy Sweet MA Attributed 04/01/24 01/29/25 documented as of this encounter
--- OUTSIDE RECORDS SUMMARY | 2025-07-17 17:47 | XMS_ITS | Encounter Summary ---
Author Organization [facility] Address [address] [place] [address] Care Team Providers Care Stock Replenisher Name Role Phone Delaney Ascencio APRN Primary Care Provider Un available Daniella Oleary Primary Care Provider + [phone] Daniella Oleary Unavailable [phone] Encounter Details Date Type Department Care Team (Late st Contact Info) Description 06/02/2023 Scanned Document [facility] Department of Internal Medicine [place] [address] [place] [address] Delaney Ascencio APRN *need valid [...] 08/13/2025 1:45 PM EST Office Visit [facility] Department of Internal Medicine [place] [address] [place] [address] Daniella Oleary PA [address] [place] [address] documented as of this encounter Visit Diagnoses Not on filedocumented in this encounter Care Teams Stock Replenisher Relationship Specialty Start Date End Date Delaney Ascencio MARIA R [place] PCP - General 01/23/24 Daniella Oleary PA [address] [place] [address] PCP - General Internal Medicine 01/24/24 Daniella Oleary PA [address] [place] [address] PCP - Handy Sweet MA Attributed 04/01/24 01/29/25 documented as of this encounter
--- OUTSIDE RECORDS SUMMARY | 2025-07-17 17:47 | XMS_ITS | Encounter Summary ---
Author Organization [facility] Address [address] [place] [address] Care Team Providers Care Cutter Hot Knife Name Role Phone Delaney Ascencio APRN Primary Care Provider Un available Delaney Ascencio APRN Unavailable Unavaila ble Daniella Oleary Primary Care Provider + [phone] Daniella Oleary Unavailable [phone] Reason for Visit * Reason Comments Medication Refill Encounter Details Date Type Department Care Team (Late st Contact Info) Description 02/25/2023 Refill [facility] Department of Internal Medicine [place] [address] [place] [address] Delaney Ascencio APRN *need valid [...] Description 08/13/2025 1:45 PM EST Office Visit [facility] Department of Internal Medicine [place] [address] [place] [address] Daniella Oleary PA [address] [place], [place] [address] documented as of this encounter Visit Diagnoses Diagnosis Acquired hypothyroidism Unspecified hypothyroidism documented in this encounter Care Teams Cutter Hot Knife Relationship Specialty Start Date End Date Delaney Ascencio APRN PCP - General 01/23/24 Delaney Ascencio APRN *need valid address PCP - Handy Villalobos MA Attributed 11/02/22 03/01/23 Daniella Oleary PA [address] [place] [address] PCP - General Internal Medicine 01/24/24 Daniella Oleary PA [address] [place] [address] PCP - Handy Sweet MA Attributed 04/01/24 01/29/25 documented as of this encounter
--- OUTSIDE RECORDS SUMMARY | 2025-07-17 17:47 | XMS_ITS | Encounter Summary ---
Author Organization [facility] Address [address] [place] [address] Care Team Providers Care Car Pusher Name Role Phone Delaney Ascencio APRN Primary Care Provider Un available Daniella Oleary Primary Care Provider + [phone] Daniella Oleary Unavailable [phone] Encounter Details Date Type Department Care Team (Late st Contact Info) Description 06/09/2023 Scanned Document [facility] Department of Internal Medicine [place] [address] [place] [address] Delaney Ascencio APRN *need valid [...] Description 08/13/2025 1:45 PM EST Office Visit [facility] Department of Internal Medicine [place] [address] [place] [address] Daniella Oleary PA [address] [place] [address] documented as of this encounter Visit Diagnoses Not on filedocumented in this encounter Care Teams Car Pusher Relationship Specialty Start Date End Date Delaney Ascencio MARIA R [place] PCP - General 01/23/24 Daniella Oleary PA [address] [place] [address] PCP - General Internal Medicine 01/24/24 Daniella Oleary PA [address] [place] [address] PCP - Handy Sweet MA Attributed 04/01/24 01/29/25 documented as of this encounter
--- OUTSIDE RECORDS SUMMARY | 2025-07-17 17:47 | XMS_ITS | Clinical Summary ---
Author Organization [facility] Address [address] [place] [address] Care Team Providers Care Minister Name Role Phone Daniella Oleary Primary Care Provider [phone] Allergies No known active allergies Medications donepezil (ARICEPT) 10 MG tabletIndications:M edication refill Take 1 tablet (10 mg total) by mouth nightly. 30 tablet 3 4 Active ergocalciferol (VITAMIN D2,DRISDOL) 46804 units CapIndications:Gay min D deficiency Take 1 [...] Type Department Care Team Description 07/02/2025 Documentation [facility] Internal [facility] [address] [place] [address] Daniella Oleary PA 05/30/2025 Scanned Document [facility] Internal [facility] [address] [place] [address] Daniella Oleary PA 05/27/2025 Orders Only [facility] Internal [facility] [address] [place] [address] ProviderAndrea MD 05/22/2025 Refill [facility] Internal [facility] [address] [place] [address] Daniella Oleary PA Frequent headaches 04/29/2025 Refill [facility] [address] [place] [address] Daniella Oleary PA Hyperlipidemia, unspecified hyperlipidemia type 04/22/2025 Refill [facility] Internal [facility] [address] [place] [address] Daniella Oleary PA Medication refill; Primary hypertension 04/21/2025 Refill [facility] [address] [place] [address] Daniella Oleary PA Acquired hypothyroidism 04/18/2025 Orders Only [facility] Department Internal Medicine [place] [address] [place] [address] Mercedes Escobar LPN Acquired hypothyroidism from Last [...] Visit [facility] Department of Internal Medicine [place] [address] [place] [address] Daniella Oleary PA [address] [place], [place] [address] Health Maintenance Due Date Last Done Comments Advance Care Planning 1940 Pneumococcal Vaccines 50+ (1 of 1 - PCV) 01/06/1990 Zoster (Shingles) Vaccine (1 of 2) 01/06/1990 DXA Bone Density (Females,Ages 65 and older) 01/06/2005 RSV Vaccine 50 years and older and Patients (1 - [...] Months Insurance [employer] MGD MEDICARE Care Teams Minister Relationship Specialty Start Date End Date Daniella Oleary PA [address] [place] [address] PCP - General Internal Medicine 01/24/24
--- OUTSIDE RECORDS SUMMARY | 2025-07-17 17:47 | XMS_ITS | Encounter Summary ---
Author Organization [facility] Address [address] [place] [address] Care Team Providers Care Business Account Manager Name Role Phone Daniella Oleary Primary Care Provider + [phone] Daniella Oleary Unavailable [phone] Encounter Details Date Type Department Care Team (Late Contact Info) Description 11/18/2024 Scanned Document [facility] Department of Internal Medicine [place] [address] [place] [address] Daniella Oleary PA [address] [place] [address] Social History Tobacco Use Types [...] Description 08/13/2025 1:45 PM EST Office Visit [facility] Department of Internal Medicine [place] [address] [place] [address] Daniella Oleary PA [address] [place] [address] documented as of this encounter Visit Diagnoses Not on filedocumented in this encounter Care Teams Business Account Manager Relationship Specialty Start Date End Date Daniella Oleary PA [address] [place] [address] PCP - General Internal Medicine 01/24/24 Daniella Oleary PA [address] [place], [place] [address] PCP - Handy Sweet MA Attributed 04/01/24 01/29/25 documented as of this encounter
--- OUTSIDE RECORDS SUMMARY | 2025-07-17 17:47 | XMS_ITS | Encounter Summary ---
Author Organization [facility] Address [address] [place] [address] Care Team Providers Care Sql Programmer Name Role Phone Delaney Ascencio APRN Primary Care Provider Un available Daniella Oleary Primary Care Provider + [phone] Daniella Oleary Unavailable [phone] Encounter Details Date Type Department Care Team (Late st Contact Info) Description 06/03/2023 Scanned Document [facility] Department of Internal Medicine [place] [address] [place] [address] Delaney Ascencio APRN *need valid [...] 08/13/2025 1:45 PM EST Office Visit [facility] Department of Internal Medicine [place] [address] [place] [phone] Daniella Oleary PA [address] [place] [address] documented as of this encounter Visit Diagnoses Not on filedocumented in this encounter Care Teams Sql Programmer Relationship Specialty Start Date End Date Delaney Ascencio MARIA R [place] PCP - General 01/23/24 Daniella Oleary PA [address] [place] [address] PCP - General Internal Medicine 01/24/24 Daniella Oleary PA [address] [place] [address] PCP - Handy Sweet MA Attributed 04/01/24 01/29/25 documented as of this encounter
--- OUTSIDE RECORDS SUMMARY | 2025-07-17 17:47 | XMS_ITS | Encounter Summary ---
Author Organization [facility] Address [address] [place] [address] Care Team Providers Care Associate Team Physician Name Role Phone Delaney Ascencio APRN Primary Care Provider Un available Daniella Oleary Primary Care Provider + [phone] Daniella Oleary Unavailable [phone] Encounter Details Date Type Department Care Team (Late st Contact Info) Description 01/01/2024 Scanned Document [facility] Department of Internal Medicine [address] [address] Delaney Ascencio APRN *need valid address Social [...] Not difficult at all 01/03/2024 12:17 PM Dealney Hussein APRN PHQ-9 Total Score 3 01/03/2024 12: 17 PM EDT Delaney Ascencio APRN documented as of this encounter Plan of Treatment Upcoming Encounters Date Type Department Care Team (Late st Contact Info) Description 08/13/2025 1:45 PM EST Office Visit [facility] Department of Internal Medicine [place] [address] [place] [address] Daniella Oleary PA [address] [place] [address] documented as of this encounter Visit Diagnoses Not on filedocumented in this encounter Care Teams Associate Team Physician Relationship Specialty Start Date End Date Delaney Ascencio APRN PCP - General 01/23/24 Daniella Oleary PA [address] [place] [address] PCP - General Internal Medicine 01/24/24 Daniella lOeary PA [address] [place] [address] PCP - Handy Sweet MA Attributed 04/01/24 01/29/25 documented as of this encounter
--- OUTSIDE RECORDS SUMMARY | 2025-07-17 17:47 | XMS_ITS | Encounter Summary ---
Author Organization [facility] Address [address] [place] [address] Care Team Providers Care Divorce Lawyer Name Role Phone Delaney Ascencio APRN Primary Care Provider Un available Daniella Oleary Primary Care Provider + [phone] Daniella Oleary Unavailable [phone] Encounter Details Date Type Department Care Team (Late st Contact Info) Description 12/28/2023 Scanned Document [facility] Department of Internal Medicine [address] [phone] Delaney Ascencio APRN *need valid address Social [...] Description 08/13/2025 1:45 PM EST Office Visit [facility] Department of Internal Medicine [place] [address] [place] [phone] Daniella Oleary PA [address] [place] [address] documented as of this encounter Visit Diagnoses Not on filedocumented in this encounter Care Teams Divorce Lawyer Relationship Specialty Start Date End Date Delaney Ascencio MARIA R Hopkins PCP - General 01/23/24 Daniella Oleary PA [address] [place] [address] PCP - General Internal Medicine 01/24/24 Daniella Oleary PA [address] [place] [address] PCP - Handy Sweet MA Attributed 04/01/24 01/29/25 documented as of this encounter
--- OUTSIDE RECORDS SUMMARY | 2025-07-17 17:47 | XMS_ITS | Encounter Summary ---
Author Organization [facility] Address [address] [place] [address] Care Team Providers Care Starter Mechanic Name Role Phone Delaney Ascencio APRN Primary Care Provider Un available Daniella Oleary Primary Care Provider Daniella Oleary Unavailable [phone] Encounter Details Date Type Department Care Team (Late st Contact Info) Description 01/02/2024 Scanned Document [facility] Department of Internal Medicine [place] [address] [place] [address] Delaney Ascencio APRN *need valid address Social [...] usual. Not at all 01/03/2024 12:17 PM Delanye Hussein APRN Thoughts that you would be [...] Visit [facility] Department of Internal Medicine [place] [address] [place] [address] Daniella Oleary PA [address] [place] [address] documented as of this encounter Visit Diagnoses Not on filedocumented in this encounter Care Teams Starter Mechanic Relationship Specialty Start Date End Date Delaney Ascencio APRN PCP - General 01/23/24 Daniella Oleary PA [address] [place] [address] PCP - General Internal Medicine 01/24/24 Daniella Oleary PA [address] [place] [address] PCP - Handy Sweet MA Attributed 04/01/24 01/29/25 documented as of this encounter
--- OUTSIDE RECORDS SUMMARY | 2025-07-17 17:48 | XMS_ITS | Encounter Summary ---
Author Organization [facility] Address [address] [place] [address] Care Team Providers Care Geodetic Surveyor Name Role Phone Delaney Ascencio APRN Primary Care Provider Un available Daniella Oleary Primary Care Provider + [phone] Daniella Oleary Unavailable [phone] Reason for Visit * Reason Comments Medication Refill Encounter Details Date Type Department Care Team (Late st Contact Info) Description 05/08/2023 Refill [facility] Department of Internal Medicine [place] [address] [place] [address] Delaney Ascencio APRN *need valid [...] Description 08/13/2025 1:45 PM EST Office Visit [facility] Department of Internal Medicine [place] [address] [place] [phone] Daniella Oleary PA [address] [place], [place] [phone] documented as of this encounter Visit Diagnoses Diagnosis Chronic GERD- Primary Vitamin D deficiency Hyperlipidemia, unspecified hyperlipidemia type documented in this encounter Care Teams Geodetic Surveyor Relationship Specialty Start Date End Date Delaney Ascencio APRN PCP - General 01/23/24 Daniella Oleary PA [address] [place] [address] PCP - General Internal Medicine 01/24/24 Daniella Oleary PA [address] [place], [place] [phone] PCP - Handy Sweet MA Attributed 04/01/24 01/29/25 documented as of this encounter
--- OUTSIDE RECORDS SUMMARY | 2025-07-17 17:48 | XMS_ITS | Encounter Summary ---
Author Organization [facility] Address [address] [place] [address] Care Team Providers Care Rest Room Matron Name Role Phone Daniella Oleary Primary Care Provider [phone] Encounter Details Date Type Department Care Team (Late st Contact Info) Description 03/14/2025 Scanned Document [facility] Department of Internal Medicine [place] [address] [place] [address] Daniella Oleary PA [address] [place], [place] [phone] Social History Tobacco Use Types Packs/Day Years [...] 08/13/2025 1:45 PM EST Office Visit [facility] Department of Internal Medicine [place] [address] [place] [phone] Daniella Oleary PA [address] [place] [address] documented as of this encounter Visit Diagnoses Not on filedocumented in this encounter Care Teams Rest Room Matron Relationship Specialty Start Date End Date Daniella Oleary PA [address] [address] PCP - General Internal Medicine 01/24/24 documented as of this encounter
--- OUTSIDE RECORDS SUMMARY | 2025-07-17 17:48 | XMS_ITS | Encounter Summary ---
Author Organization [facility] Address [address] [place] [address] Care Team Providers Care Operations Recruiter Name Role Phone Daniella Oleary Primary Care Provider [phone] Encounter Details Date Type Department Care Team (Late st Contact Info) Description 03/20/2025 Scanned Document [facility] Department of Internal Medicine [place] [address] [place] [address] Daniella Oleary PA [address] [place], [place] [phone] Social History Tobacco Use Types Packs/Day Years [...] [facility] [place] Department of Internal Medicine [place] [address] [place] [phone] Daniella Oleary PA [address] [place] [address] documented as of this encounter Visit Diagnoses Not on filedocumented in this encounter Care Teams Operations Recruiter Relationship Specialty Start Date End Date Daniella Oleary PA [address] [address] PCP - General Internal Medicine 01/24/24 documented as of this encounter
--- OUTSIDE RECORDS SUMMARY | 2025-07-17 17:48 | XMS_ITS | Data Portability ---
Author Organization [place] [facility] Address [address] [place] [address] Assessment Encounter Date Assessment Date Assessment LastModified [...] well as risk of infection of a faculty i on call medical assistant, scar, wound healing. There is an implanted [...] system (PROC) - INSPIRE implant 2023 024 [email or web address] Not available 16:54:43 Surgeries None recorded. [...] Recorded Time Obstructiv e sleep apnea syndrome 29169463 Active 2022 Obstructiv e sleep apnea (adult) (pediatric ); Note: Date Diagnosed: 08/30/2023 12:32 PM (G47.33) Note: Date Diagnosed: 08/30/2023 12:32 PM (G47.33) AUREA JACINTO MD [address] [place] [address], [place], [phone], [facility] - [facility] 4 11:43:41 Body mass index 25-29 - overweight 579672550 Active 2023 AUREA JACINTO MD [address] [place] [address], [place], [phone], [facility] - [facility] 4 13:29:10 Problem Notes None recorded. 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 [...] release 24 hr active Medicatio n ID: [id number] Br and Name: divalproe x Send Method: E-Prescri bed Subs Allowed: subs OK Medica tionGener icName: divalproe x Not Available Not Available Not Available rosuvastat in 20 mg tablet TAKE 1 TABLET BY MOUTH EVERY DAY active Not Available Not Available No t Available Vascepa 1 gram capsule active Medicatio n ID: [id number] Br and Name: Cinthya S end Method: E-Prescri bed Subs Allowed: subs OK Medica tionGener icName: Vascepa Not Available Not Available Not Available Qulipta 60 mg tablet active Not Available Not Available No t Available Vitals Date Recorded Body height Body mass index (BMI) Body weight Provider Name and Address Organization Details Last Updated DateTime 06/27/2024 160.02 cm 28 kg/m2 08833.59 g Audie Thrasher [place] - [facility] 06/27/2024 11:09:04 Social History None recorded. [...] Note 4321 AUREA JACINTO MD [facility] [address] [place] [address] 03/18/2024 00:27:42 03/18/2024 00:27:42 Obstructive sleep apnea syndrome 11681214 G47.33 5596 AUREA JACINTO MD [facility] - [address] [address] 03/27/2024 13:19:07 03/27/2024 13:29:44 Obstructive sleep apnea syndrome 64172716 G47.33 Milagro is her caregiver and understand s the expectatio ns of activation and deactivati on of device each night. Body mass index 25-29 - overweight 353657969 Z68.29 13381 MELANI FALL PA-C [facility] [address] [place] [address] 06/27/2024 10:54:38 06/27/2024 11:32:18 Obstructive sleep apnea syndrome 07833701 G47.33 Postoperative care 62664 9007 Z48.89 Health Concerns Section Related Observation LastModified by Organization Detai ls LastModified Time None Recorded Concern Status LastModified by Organization Details LastModified Time None Recorded Advance Directives Directive None Recorded Payers Insurance Date Sequence Insurance Name Policy Number Policy Cisneros Covered Member ID Cisneros Member ID Guarantor Name 06/29/2024 1 [employer] [id number] Hollie Bowen [id number] Hollie Bowen Notes Date Note Type Note Provider Name and Address Organization Details Recorded Time 03/27/2024 text/html ROS as noted in the HPI TERA - Inspire consult DISE 03/18/24 - Good anatomical candidate for INSPIREBonnie (daughter)split night PSG [place] 04/17/23BMI - 28AHI - 27central & mixed - no eventsCPAP - tried 3 different masks but was removing it at night - sensation of being choked.tried adjusting force of the air pressurePMHx - dementiauses bathroom 1-2 times per nightfalls asleep wellno hx of throat or nose surgery AUREA JACINTO MD [address] [place] [address], [address], [place] - [facility] 03/27/2024 13:29:28 06/27/2024 text/html ROS as noted in the HPI 84-year-old female presents status post inspire implant on 06/20/[address] Jacinto. She is doing well postoperatively without any concerns. She is on her last dose of antibiotics. AUREA JACINTO MD [address] [place] [address], [address], [place] [facility] 06/27/2024 16:56:52 OBGyn Episode No OBEpisode recorded.
--- OUTSIDE RECORDS SUMMARY | 2025-07-17 17:48 | XMS_ITS | Clinical Summary ---
Author Organization [facility] Address [address] [place] [address] Care Team Providers Care Windows Consultant Name Role Phone Jocelynn Avila MD Primary Care Provider [phone] Allergies No known active allergies Medications Medication [...] age to complete this topic Care Teams Windows Consultant Relationship Specialty Start Date End Date Jocelynn Avila MD [address] [facility] [place] [address] PCP - General Family Medicine 12/30/21
--- OUTSIDE RECORDS SUMMARY | 2025-07-17 17:48 | XMS_ITS | Encounter Summary ---
Author Organization [facility] Address [address] [place] [address] Care Team Providers Care International Marketing Manager Name Role Phone Delaney Ascencio APRN Primary Care Provider Un available Daniella Oleary Primary Care Provider + [phone] Daniella Oleary Unavailable [phone] Encounter Details Date Type Department Care Team (Late st Contact Info) Description 06/27/2023 Scanned Document [facility] Department of Internal Medicine [place] [address] [place] [address] Delaney Ascencio APRN *need valid [...] [facility] Department of Internal Medicine [place] [address] [place] [phone] Daniella Oleary PA [address] [place] [address] documented as of this encounter Visit Diagnoses Not on filedocumented in this encounter Care Teams International Marketing Manager Relationship Specialty Start Date End Date Delaney Ascencio MARIA R Hopkins PCP - General 01/23/24 Daniella Oleary PA [address] [place] [address] PCP - General Internal Medicine 01/24/24 Daniella Oleary PA [address] [place] [address] PCP - Handy Sweet MA Attributed 04/01/24 01/29/25 documented as of this encounter
--- OUTSIDE RECORDS SUMMARY | 2025-07-17 17:48 | XMS_ITS | Encounter Summary ---
Author Organization [facility] Address [address] [place] [address] Care Team Providers Care Real Estate Broker Name Role Phone Daniella Oleary Primary Care Provider [phone] Encounter Details Date Type Department Care Team (Late st Contact Info) Description 05/30/[address] [facility] Department of Internal Medicine [place] [address] [place] [address] Daniella Oleary PA [address] [place], [place] [address] Social History Tobacco Use Types Packs/Day Years [...] Description 08/13/2025 1:45 PM EST Office Visit [facility] Department of Internal Medicine [place] [address] [place] [phone] Daniella Oleary PA [address] [place] [address] documented as of this encounter Visit Diagnoses Not on filedocumented in this encounter Care Teams Real Estate Broker Relationship Specialty Start Date End Date Daniella Oleary PA [address] [address] PCP - General Internal Medicine 01/24/24 documented as of this encounter
--- OUTSIDE RECORDS SUMMARY | 2025-07-17 17:48 | XMS_ITS | Encounter Summary ---
Author Organization [facility] Address [address] [place] [address] Care Team Providers Care Senior Security Analyst Name Role Phone Delaney Ascencio APRN Primary Care Provider Un available Daniella Oleary Primary Care Provider + [phone] Daniella Oleary Unavailable [phone] Encounter Details Date Type Department Care Team (Late st Contact Info) Description 10/25/2023 Scanned Document [facility] Department of Internal Medicine [place] [address] [place] [address] Delaney Ascencio APRN *need [...] [facility] Department [facility] [place] [address] [place] [phone] Daniella Oleary PA [address] [place] [address] documented as of this encounter Visit Diagnoses Not on filedocumented in this encounter Care Teams Senior Security Analyst Relationship Specialty Start Date End Date Delaney Ascencio MARIA R Hopkins PCP - General 01/23/24 Daniella Oleary PA [address] [place] [address] PCP - General Internal Medicine 01/24/24 Daniella Oleary PA [address] [place] [address] PCP - Handy Sweet MA Attributed 04/01/24 01/29/25 documented as of this encounter
--- OUTSIDE RECORDS SUMMARY | 2025-07-17 17:48 | XMS_ITS | Clinical Summary ---
Author Organization [facility] Address [address] [facility] [address] [place] [address] Phone Care Team Providers Care Patient Relations Liaison Name Role Phone Pcp, Unknown Primary Care Provider Unavailabl e Encounters Date Type Department Care Team Description 06/17/2025 6:04 AM EDT - 06/17/2025 11:59 PM EDT Hospital Encounter [facility] Laboratory [address] [place] [address] Kobi Israel MD Discharge Disposition: Home or Self Care 06/17/2025 Transcribe Orders [facility] Specimen Processing [address] [place] [address] Kobi Israel MD Myxedema heart disease (Primary Dx); Obstructive sleep apnea (adult) (pediatric); Gastroesophageal reflux disease, unspecified whether esophagitis present; Essential hypertension, malignant; Somatosensory attacks; Hyperlipidemia, unspecified hyperlipidemia type 06/10/2025 9:04 AM EDT - 06/10/2025 11:59 PM EDT Hospital Encounter [facility] [address] [place] [address] Kobi Israel MD Discharge Disposition: Home or Self Care 06/04/2025 7:23 AM EDT - 06/04/2025 11:59 PM EDT Hospital Encounter [facility] [address] [place] [address] Kobi Israel MD Discharge Disposition: Home or Self Care 06/04/2025 Transcribe Orders [facility] Specimen Processing [address] [place] [address] Kobi Israel MD Essential hypertension, malignant (Primary Dx) 05/30/2025 10:04 AM EDT - 05/30/2025 11:59 PM EDT Hospital Encounter [facility] Laboratory [address] [place] [address] Kobi Israel MD Discharge Disposition: Home or [...] included. WBC 4.52 4.00 - 11.00 K/uL [facility] RBC 3.78(L) 4.00 - 5.20 M/uL [facility] HGB 11.7(L) 12.0 - 16.0 g/dL [facility] HCT 35.3(L) 36.0 - 46.0 % [facility] PLT 143(L) 150 - 450 K/uL [facility] MCV 93.4 80.0 - 100.0 fL [facility] MCH 31.0 27.0 - 31.0 pg [facility] MCHC 33.1 32.0 - 36.0 g/dL [facility] RDW 13.1 11.5 - 14.5 % [facility] MPV 10.3 8.4 - 12.0 fL [facility] NRBC 0.00 0.00 /100 WBCs [facility] ABSOLUTE NRBC 0.00 0.00 K/uL [facility] DIFF METHOD Auto [facility] NEUTS 47.7(L) 48.0 - 76.0 % [facility] LYMPHS 36.5 18.0 - 41.0 % [facility] MONOS 12.8(H) 4.0 - 11.0 % [facility] EOS 2.4 0.0 - 5.0 % [facility] BASOS 0.4 0.0 - 1.5 % [facility] Granulocytes, immature (%) 0.2 0.0 - 0.9 % [facility] ABSOLUTE NEUTS 2.15 1.92 - 7.60 K/uL [facility] ABSOLUTE LYMPHS 1.65 0.72 - 4.10 K/uL [facility] ABSOLUTE MONOS 0.58 0.16 - 1.10 K/uL [facility] ABSOLUTE EOS 0.11 0.00 - 0.50 K/uL [facility] ABSOLUTE BASOS 0.02 0.00 - 0.15 K/uL [facility] Granulocytes, immature 0.01 0.00 - 0.09 K/uL [facility] Blood 06/17/2025 4:40 AM EDT 06/17/2025 6:16 AM EDT us Kobi Israel MD LAB BLOOD ORDERABLES Final Resul t Performing Organization Address City/[facility] Co de Phone Number [address] [address] * (ABNORMAL) Basic metabolic panel (06/17/2025 4:40 AM EDT) Only the most recent of3 resultswithin the time period is included. SODIUM 140 133 - 146 mmol/L [facility] CHLORIDE 103 96 - 108 mmol/L [facility] POTASSIUM 4.1 3.3 - 5.1 mmol/L [facility] Comment:Specimen slightly he molyzed, result may be falsely elevated. CO2 25 21 - 35 mmol/L [facility] BUN 12 6 - 19 mg/dL [facility] CREATININE 0.70 0.5 - 1.5 mg/dL [facility] GLUCOSE 100(H) 70 - 99 mg/dL [facility] CALCIUM 9.2 8.4 - 10.3 mg/dL [facility] EGFR 85 >59 mL/min/1.7 3m2 [facility] Comment:Estimated glomerular filtration rate calculated using the CKD-EPI refit equation. ANION GAP 16 10 - 20 mmol/L [facility] Blood 06/17/2025 4:40 AM EDT 06/17/2025 6:16 AM EDT us Kobi Israel MD LAB BLOOD ORDERABLES Final Resul t Performing Organization Address City/[facility]/ZIP Co de Phone Number [address] [address] * (ABNORMAL) Comprehensive metabolic panel (06/04/2025 6:25 AM EDT) SODIUM 139 133 - 146 mmol/L [facility] POTASSIUM 4.9 3.3 - 5.1 mmol/L [facility] Comment:Specimen slightly he molyzed, result may be falsely elevated. CHLORIDE 102 96 - 108 mmol/L [facility] CO2 29 21 - 35 mmol/L [facility] BUN 22(H) 6 - 19 mg/dL [facility] CREATININE 0.70 0.5 - 1.5 mg/dL [facility] GLUCOSE 100(H) 70 - 99 mg/dL [facility] ALBUMIN 3.6(L) 3.9 - 4.8 g/dL [facility] TOTAL PROTEIN 5.7(L) 6.5 - 8.0 g/dL [facility] CALCIUM 9.1 8.4 - 10.3 mg/dL [facility] ALKALINE PHOSPHATASE 143(H) 39 - 117 U/L [facility] TOTAL BILIRUBIN <0.2 0.0 - 1.2 mg/dL [facility] AST 11 0 - 37 U/L [facility] ALT 8 0 - 40 U/L [facility] GLOBULIN 2.1 1 - 4.8 g/dL [facility] EGFR 85 >59 mL/min/1.7 3m2 [facility] Comment:Estimated glomerular filtration rate calculated using the CKD-EPI refit equation. ANION GAP 13 10 - 20 mmol/L [facility] Blood 06/04/2025 6:25 AM EDT 06/04/2025 8:22 AM EDT us Kobi Israel MD LAB BLOOD ORDERABLES Final Resul t [address] [address] * (ABNORMAL) CBC (06/04/2025 6:25 AM EDT) Only the most recent of2 resultswithin the time period is included. WBC 5.30 4.00 - 11.00 K/uL [facility] RBC 4.23 4.00 - 5.20 M/uL [facility] HGB 12.7 12.0 - 16.0 g/dL [facility] HCT 39.8 36.0 - 46.0 % [facility] PLT 170 150 - 450 K/uL [facility] MCV 94.1 80.0 - 100.0 fL [facility] MCH 30.0 27.0 - 31.0 pg [facility] MCHC 31.9(L) 32.0 - 36.0 g/dL [facility] RDW 13.1 11.5 - 14.5 % [facility] MPV 10.4 8.4 - 12.0 fL [facility] NRBC 0.00 0.00 /100 WBCs [facility] ABSOLUTE NRBC 0.00 0.00 K/uL [facility] Blood 06/04/2025 6:25 AM EDT 06/04/2025 8:22 AM EDT us Kobi Israel MD LAB BLOOD ORDERABLES Final Resul t Performing Organization Address City/State/[facility] Co de Phone Number [facility] [address] [place] [address] from Last 3 Months Insurance [employer] [facility] MEDICARE REPLACEMENT [employer] [facility] MEDICARE REPLACEMENT A[employer] PPO MEDICARE REPLACEMENT [employer] PPO MEDICARE REPLACEMENT [employer] PPO MEDICARE REPLACEMENT [employer] PPO MEDICARE REPLACEMENT Care Teams Patient Relations Liaison Relationship Specialty Start Date End Date Pcp, Unknown PCP - General 05/30/25 Additional Source Comments The information contained in this document represents components of the legal health record. It is not the complete legal health record.[facility]
--- OUTSIDE RECORDS SUMMARY | 2025-07-17 17:48 | XMS_ITS | Encounter Summary ---
Author Organization [facility] Address [address] [place] [address] Care Team Providers Care Back Pad Inspector Name Role Phone Delaney Ascencio APRN Primary Care Provider Un available Daniella Oleary Primary Care Provider + [phone] Daniella Oleary Unavailable [phone] Reason for Visit * Reason Comments Medication Refill Encounter Details Date Type Department Care Team (Late st Contact Info) Description 03/12/2023 Refill [facility] Department of Internal Medicine [place] [address] [place] [address] Delaney Ascencio APRN *need valid [...] [facility] [place] [address] [place] [phone] Daniella Oleary PA [address] [place], [place] [phone] documented as of this encounter Visit Diagnoses Diagnosis Hyperlipidemia, unspecified hyperlipidemia type documented in this encounter Care Teams Back Pad Inspector Relationship Specialty Start Date End Date Delaney Ascencio APRN PCP - General 01/23/24 Daniella Oleary PA [address] [place], [place] [id number] PCP - General Internal Medicine 01/24/24 Daniella Oleary PA [address] [place], [place] [phone] PCP - Handy Sweet MA Attributed 04/01/24 01/29/25 documented as of this encounter
== END 2025-07-17 14:35 | disposition home or self-care (01) ==
LOC: HO.HVS 14:02
PROVIDERS: Visit Provider Surgery Vascular Surgery
DX: I71.43 Infrarenal abdominal aortic aneurysm, without rupture (principal)
CPT/HCPCS: 99204; G2211

== ENCOUNTER → 2025-07-17 14:02 | Outpatient (BNVA) | payer MEDICARE, SELFPAY | PROVIDERS: Visit Provider Surgery Vascular Surgery | DX: I71.43 Infrarenal abdominal aortic aneurysm, without rupture (principal) | CPT/HCPCS: 99202 ==

== ENCOUNTER 2025-07-30 11:57 | Outpatient (AMB) | payer MEDICARE, SELFPAY ==
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
[2025-07-30 12:00] VITALS: BP 128/76; PULSE 55; BMI 28.5
--- OUTSIDE RECORDS SUMMARY | 2025-07-30 15:22 | XMS_ITS | Encounter Summary ---
Author Organization [facility] Address [address] [place] [address] Care Team Providers Care Cardiac/Vascular Sonographer Name Role Phone Delaney Ascencio APRN Primary Care Provider Un available Delaney Ascencio APRN Unavailable Unavaila ble Daniella Oleary Primary Care Provider + [phone] Daniella Oleary Unavailable [phone] Reason for Visit * Reason Comments Medication Refill Encounter Details Date Type Department Care Team (Late st Contact Info) Description 02/25/2023 Refill [facility] Department of Internal Medicine [place] [address] [place] [address] Delaney Ascencio APRN *need valid [...] Description 08/13/2025 1:45 PM EST Office Visit [facility] Department of Internal Medicine [place] [address] [place] [phone] Daniella Oleary PA [address] [place], [place] [phone] documented as of this encounter Visit Diagnoses Diagnosis Acquired hypothyroidism Unspecified hypothyroidism documented in this encounter Care Teams Cardiac/Vascular Sonographer Relationship Specialty Start Date End Date Delaney Ascencio APRN PCP - General 01/23/24 Delaney Ascencio APRN *need valid address PCP - Handy Villalobos MA Attributed 11/02/22 03/01/23 Daniella Oleary PA [address] [place] [address] PCP - General Internal Medicine 01/24/24 Daniella Oleary PA [address] [place] [address] PCP - Handy Sweet MA Attributed 04/01/24 01/29/25 documented as of this encounter
--- OUTSIDE RECORDS SUMMARY | 2025-07-30 15:22 | XMS_ITS | Encounter Summary ---
Author Organization [facility] Address [address] [place] [address] Care Team Providers Care Cosmetic Assembler Name Role Phone Delaney Ascencio APRN Primary Care Provider Un available Daniella Oleary Primary Care Provider + [phone] Daniella Oleary Unavailable [phone] Encounter Details Date Type Department Care Team (Late st Contact Info) Description 01/02/2024 Scanned Document [facility] Department of Internal Medicine [place] [address] [place] [address] Delaney Ascencio APRN *need valid address Social [...] Visit [facility] Department of Internal Medicine [place] [address] [place] [address] Daniella Oleary PA [address] [place] [address] documented as of this encounter Visit Diagnoses Not on filedocumented in this encounter Care Teams Cosmetic Assembler Relationship Specialty Start Date End Date Delaney Ascencio APRN PCP - General 01/23/24 Daniella Oleary PA [address] [place] [address] PCP - General Internal Medicine 01/24/24 Daniella Oleary PA [address] [place] [address] PCP - Handy Sweet MA Attributed 04/01/24 01/29/25 documented as of this encounter
--- OUTSIDE RECORDS SUMMARY | 2025-07-30 15:22 | XMS_ITS | Clinical Summary ---
Author Organization [facility] Address [address] [place] [address] Care Team Providers Care Oncology Account Specialist Name Role Phone Jocelynn Avila MD Primary Care Provider [phone] Medical History Medical History Date Comments Dementia [...] Procedure Name Priority Date/Time Associated Diagnosis Comments [facility] DEXA AXIAL SKELETON Routine 09/26/2023 7:49 AM EST Encounter for screening for osteoporosis from Last 3 Months or Most Recently Relevant to Health Maintenance Results * [facility] DEXA AXIAL SKELETON (09/26/2023 7:49 AM EST) Anatomical Region Laterality Modality Mammography 09/22/2023 3:01 PM EST Narrative 09/26/2023 7:49 AM EST [facility] Diagnostic Imaging Department [address] [place] [address] Patient: GINO BOWEN /Age/Sex: 1940 - 83 - F Unit#: [id number] Location/Status: SPDIMAM/REG CLI Mnemonic/[facility] Ordering Physician: DELANEY ASCENCIO NP [facility] Dexa Axial Skeleton - 09/22/23 - 1533 [...] probability of hip fracture of 7.2%. Code 42463 Dictating Physician: ZAYRA BAUMAN MD Electronically Signed by: ZAYRA BAUMAN MD Dic Date/Time: 09/26/2348 Sign date/Time: 09/26/23748 Procedure Note Zayra Bauman MD - 11/07/2023 [facility] Diagnostic Imaging Department [address] [place] [address] Patient: ISAELGINO GALINDO/Age/Sex: 1940 - 83 - F Unit#: [id number] Location/Status: [facility]/REG CLI Mnemonic/[facility] Ordering Physician: DELANEY ASCENCIO CLAIMS CLERK Susu Dexa Axial Skeleton - 09/22/23 - [...] density of the femurs bilaterally is 0.701 gm/bx9liccz is 70% of that of young normals [...] probability of hip fracture of 7.2%. Code 46691 Dictating Physician: ZAYRA BAUMAN MD Electronically Signed by: ZAYRA BAUMAN MD Dic Date/Time: 09/26/2348 Sign date/Time: 09/26/2349 Delaney Ascencio SQUARING MACHINE OPERATOR IMG BI PROCEDURES Final Resu lt from Last 3 Months or Most Recently Relevant to Health Maintenance Care Teams Oncology Account Specialist Relationship Specialty Start Date End Date Jocelynn Avila MD [address] [facility] [place] [address] PCP - General Family Medicine 12/30/21
--- OUTSIDE RECORDS SUMMARY | 2025-07-30 15:22 | XMS_ITS | Encounter Summary ---
Author Organization [facility] Address [address] [place] [address] Care Team Providers Care Gold Layer Name Role Phone Delaney Ascencio APRN Primary Care Provider Un available Delaney Ascencio APRN Unavailable Unavaila ble Daniella Oleary Primary Care Provider + [phone] Daniella Oleary Unavailable [phone] Reason for Visit * Reason Comments Medication Refill Encounter Details Date Type Department Care Team (Late st Contact Info) Description 01/16/2023 Refill [facility] Department of Internal Medicine [place] [address] [place] [address] Delaney Ascencio APRN *need [...] Description 08/13/2025 1:45 PM EST Office Visit [facility] Department of Internal Medicine [place] [address] [place] [phone] Daniella Oleary PA [address] [place], [place] [phone] documented as of this encounter Visit Diagnoses Diagnosis Frequent headaches documented in this encounter Care Teams Gold Layer Relationship Specialty Start Date End Date Delaney Ascencio APRN PCP - General 01/23/24 Delaney Ascencio APRN *need valid address PCP - Handy Villalobos MA Attributed 11/02/22 03/01/23 Daniella Oleary PA [address] [place] [address] PCP - General Internal Medicine 01/24/24 Daniella Oleary PA [address] [place] [address] PCP - Handy Sweet MA Attributed 04/01/24 01/29/25 documented as of this encounter
--- OUTSIDE RECORDS SUMMARY | 2025-07-30 15:22 | XMS_ITS | Clinical Summary ---
Author Organization [facility] Address [address] [place] [address] Care Team Providers Care After School Program Director Name Role Phone Daniella Oleary Primary Care Provider [phone] Allergies No known active allergies Medications donepezil (ARICEPT) 10 MG tabletIndications:M edication refill Take 1 tablet (10 mg total) by mouth nightly. 30 tablet 3 4 Active ergocalciferol (VITAMIN D2,DRISDOL) 68609 units CapIndications:Gay min D deficiency Take 1 [...] Type Department Care Team Description 07/02/2025 Documentation [facility] Internal Medicine [place] [address] [place] [address] Daniella Oleary PA 05/30/2025 Scanned Document [facility] Internal Medicine [place] [address] [place] [address] Daniella Oleary PA 05/27/2025 Orders Only [facility] Internal [facility] [address] [place] [address] ProviderAndrea MD 05/22/2025 Refill [facility] [address] [place] [address] Daniella Oleary PA Frequent headaches 04/29/2025 Refill [facility] [address] [place] [address] Daniella Oleary PA Hyperlipidemia, unspecified hyperlipidemia type [...] Visit [facility] Department of Internal Medicine [place] [address] [place] [address] Daniella Oleary PA [address] [place] [address] Health Maintenance Due Date Last Done Comments Advance Care Planning 1940 Pneumococcal Vaccines 50+ (1 of 1 - PCV) 01/06/1990 Zoster (Shingles) Vaccine (1 of 2) 01/06/1990 DXA Bone Density (Females,Ages 65 and older) 01/06/2005 RSV Vaccine 50 years and older and Patients (1 - 1-dose 75+ series) 01/06/2015 Influenza Vaccine 05/02/2025 08/05/2024, , 09/15/2021 COVID-19 Vaccine ( - season) 2025 06/29/2023, 09/03/2021, 01/04/2021, Additional history [...] Modality Computed Radiogr aphy us External Provider IMG DIAGNOSTIC IMAGING ORDE RABLES Final Result * Imaging Result (05/27/2025 1:44 PM EDT) Anatomical Region Laterality Modality Other us Daniella BROOKS IMG LEGACY PROCEDURES Sonia l Result * IMAGING-SCAN [...] Months Insurance [employer] MGD MEDICARE Care Teams After School Program Director Relationship Specialty Start Date End Date Daniella Oleary PA [address] [place] [address] PCP - General Internal Medicine 01/24/24
--- OUTSIDE RECORDS SUMMARY | 2025-07-30 15:22 | XMS_ITS | Encounter Summary ---
Author Organization [facility] Address [address] [place] [address] Care Team Providers Care Information Services Assistant Name Role Phone Delaney Ascencio APRN Primary Care Provider Un available Daniella Oleary Primary Care Provider + [phone] Daniella Oleary Unavailable [phone] Encounter Details Date Type Department Care Team (Late st Contact Info) Description 12/26/[address] [facility] Department of Internal Medicine [place] [address] [place] [address] Delaney Ascencio APRN *need valid [...] PM EST Office Visit [facility] Department of Internal Medicine [place] [address] [place] [phone] Daniella Oleary PA [address] [place] [address] documented as of this encounter Visit Diagnoses Not on filedocumented in this encounter Care Teams Information Services Assistant Relationship Specialty Start Date End Date Delaney Ascencio [facility] R [place] PCP - General 01/23/24 Daniella Oleary PA [address] [place] [address] PCP - General Internal Medicine 01/24/24 Daniella Oleary PA [address] [place] [address] PCP - Handy Sweet MA Attributed 04/01/24 01/29/25 documented as of this encounter
--- OUTSIDE RECORDS SUMMARY | 2025-07-30 15:23 | XMS_ITS | Encounter Summary ---
Author Organization [facility] Address [address] [place] [address] Care Team Providers Care Runner Out Name Role Phone Daniella Oleary Primary Care Provider [phone] Encounter Details Date Type Department Care Team (Late st Contact Info) Description 05/30/2025 Scanned Document [facility] Department [facility] Internal Medicine [place] [address] [place] [address] Daniella Oleary PA [address] [place], [place] [phone] Social History Tobacco Use Types Packs/Day Years [...] [facility] Department [facility] Medicine [place] [address] [place] [phone] Daniella Oleary PA [address] [place] [address] documented as of this encounter Visit Diagnoses Not on filedocumented in this encounter Care Teams Runner Out Relationship Specialty Start Date End Date Daniella Oleary PA [address] [address] PCP - General Internal Medicine 01/24/24 documented as of this encounter
--- OUTSIDE RECORDS SUMMARY | 2025-07-30 15:23 | XMS_ITS | Encounter Summary ---
Author Organization [facility] Address [address] [place] [address] Care Team Providers Care Stretch Box Tender Name Role Phone Delaney Ascencio APRN Primary Care Provider Un available Daniella Oleary Primary Care Provider + [phone] Daniella Oleary Unavailable [phone] Encounter Details Date Type Department Care Team (Late st Contact Info) Description 01/01/2024 Scanned Document [facility] Department of Internal Medicine [address] [address] Delaney Ascencio APRN *need valid address Social [...] Visit [facility] Department of Internal Medicine [place] [address] [place] [address] Daniella Oleary PA [address] [place] [address] documented as of this encounter Visit Diagnoses Not on filedocumented in this encounter Care Teams Stretch Box Tender Relationship Specialty Start Date End Date Delaney Ascencio APRN PCP - General 01/23/24 Daniella Oleary PA [address] [place] [address] PCP - General Internal Medicine 01/24/24 Daniella Oleary PA [address] [place] [address] PCP - Handy Sweet MA Attributed 04/01/24 01/29/25 documented as of this encounter
--- OUTSIDE RECORDS SUMMARY | 2025-07-30 15:23 | XMS_ITS | Encounter Summary ---
Author Organization [facility] Address [address] [place] [address] Care Team Providers Care Asset Coordinator Name Role Phone Delaney Ascencio APRN Primary Care Provider Un available Daniella Oleary Primary Care Provider + [phone] Daniella Oleary Unavailable [phone] Encounter Details Date Type Department Care Team (Late st Contact Info) Description 06/09/2023 Scanned Document [facility] Department of Internal Medicine [place] [address] [place] [address] Delaney Ascencio APRN *need valid [...] [facility] [place] [address] [place] [phone] Daniella Oleary PA [address] [place] [address] documented as of this encounter Visit Diagnoses Not on filedocumented in this encounter Care Teams Asset Coordinator Relationship Specialty Start Date End Date Delaney Ascencio MARIA R Hopkins PCP - General 01/23/24 Daniella Oleary PA [address] [place] [address] PCP - General Internal Medicine 01/24/24 Daniella Oleary PA [address] [place] [address] PCP - Handy Sweet MA Attributed 04/01/24 01/29/25 documented as of this encounter
--- OUTSIDE RECORDS SUMMARY | 2025-07-30 15:23 | XMS_ITS | Encounter Summary ---
Author Organization [facility] Address [address] [place] [address] Care Team Providers Care Halver Machine Operator Name Role Phone Delaney Ascencio APRN Primary Care Provider Un available Daniella Oleary Primary Care Provider + [phone] Daniella Oleary Unavailable [phone] Reason for Visit * Reason Comments Medication Refill Encounter Details Date Type Department Care Team (Late st Contact Info) Description 05/08/2023 Refill [facility] Department of Internal Medicine [place] [address] [place] [address] Delaney Ascencio APRN *need valid [...] Description 08/13/2025 1:45 PM EST Office Visit [facility] Department of Internal Medicine [place] [address] [place] [phone] Daniella Oleary PA [address] [place], [place] [phone] documented as of this encounter Visit Diagnoses Diagnosis Chronic GERD- Primary Vitamin D deficiency Hyperlipidemia, unspecified hyperlipidemia type documented in this encounter Care Teams Halver Machine Operator Relationship Specialty Start Date End Date Delaney Ascencio APRN PCP - General 01/23/24 Daniella Oleary PA [address] [place] [address] PCP - General Internal Medicine 01/24/24 Daniella Oleary PA [address] [place], [place] [phone] PCP - Handy Sweet MA Attributed 04/01/24 01/29/25 documented as of this encounter
--- OUTSIDE RECORDS SUMMARY | 2025-07-30 15:23 | XMS_ITS | Clinical Summary ---
Author Organization [facility] Address [address] [place] [address] Care Team Providers Care Shipping Weigher Name Role Phone Jocelynn Avila MD Primary Care Provider [phone] Allergies No known active allergies Medications Medication [...] age to complete this topic Care Teams Shipping Weigher Relationship Specialty Start Date End Date Jocelynn Avila MD [address] [facility] [place] [address] PCP - General Family Medicine 12/30/21
--- OUTSIDE RECORDS SUMMARY | 2025-07-30 15:23 | XMS_ITS | Clinical Summary ---
Author Organization [facility] Address [address] [place] [address] Phone Care Team Providers Care Cocoa Mill Operator Name Role Phone Pcp, Unknown Primary Care Provider Unavailabl e Encounters Date Type Department Care Team Description 06/17/2025 6:04 AM EDT - 06/17/2025 11:59 PM EDT Hospital Encounter [facility] Laboratory [address] [place] [address] Kobi Israel MD Discharge Disposition: Home or Self Care 06/17/[address] [facility] Specimen Processing [address] [place] [address] Kobi Israel MD Myxedema heart disease (Primary Dx); Obstructive sleep apnea (adult) (pediatric); Gastroesophageal reflux disease, unspecified whether esophagitis present; Essential hypertension, malignant; Somatosensory attacks; Hyperlipidemia, unspecified hyperlipidemia type 06/10/2025 9:04 AM EDT - 06/10/2025 11:59 PM EDT Hospital Encounter [facility] Laboratory [address] [place] [address] Kobi Israel MD Discharge Disposition: Home or Self Care 06/04/2025 7:23 AM EDT - 06/04/2025 11:59 PM EDT Hospital Encounter [facility] Laboratory [address] [place] [address] Kobi Israel MD Discharge Disposition: Home or Self Care 06/04/[address] [facility] Specimen Processing [address] [place] [address] Kobi Israel MD Essential hypertension, malignant (Primary Dx) 05/30/2025 10:04 AM EDT - 05/30/2025 11:59 PM EDT Hospital Encounter [facility] Laboratory [address] [place] [address] Kobi Israel MD Discharge Disposition: Home or [...] included. WBC 4.52 4.00 - 11.00 K/uL [facility] RBC 3.78(L) 4.00 - 5.20 M/uL [facility] HGB 11.7(L) 12.0 - 16.0 g/dL [facility] HCT 35.3(L) 36.0 - 46.0 % [facility] PLT 143(L) 150 - 450 K/uL [facility] MCV 93.4 80.0 - 100.0 fL [facility] MCH 31.0 27.0 - 31.0 pg [facility] MCHC 33.1 32.0 - 36.0 g/dL [facility] RDW 13.1 11.5 - 14.5 % [facility] MPV 10.3 8.4 - 12.0 fL [facility] NRBC 0.00 0.00 /100 WBCs [facility] ABSOLUTE NRBC 0.00 0.00 K/uL [facility] DIFF METHOD Auto [facility] NEUTS 47.7(L) 48.0 - 76.0 % [facility] LYMPHS 36.5 18.0 - 41.0 % [facility] MONOS 12.8(H) 4.0 - 11.0 % [facility] EOS 2.4 0.0 - 5.0 % [facility] BASOS 0.4 0.0 - 1.5 % [facility] Granulocytes, immature (%) 0.2 0.0 - 0.9 % [facility] ABSOLUTE NEUTS 2.15 1.92 - 7.60 K/uL [facility] ABSOLUTE LYMPHS 1.65 0.72 - 4.10 K/uL [facility] ABSOLUTE MONOS 0.58 0.16 - 1.10 K/uL [facility] ABSOLUTE EOS 0.11 0.00 - 0.50 K/uL [facility] ABSOLUTE BASOS 0.02 0.00 - 0.15 K/uL [facility] Granulocytes, immature 0.01 0.00 - 0.09 K/uL [facility] Blood 06/17/2025 4:40 AM EDT 06/17/2025 6:16 AM EDT us Kobi Israel MD LAB BLOOD ORDERABLES Final Resul t Performing Organization Address City/[facility] Co de Phone Number [address] [address] * (ABNORMAL) Basic metabolic panel (06/17/2025 4:40 AM EDT) Only the most recent of3 resultswithin the time period is included. SODIUM 140 133 - 146 mmol/L [facility] CHLORIDE 103 96 - 108 mmol/L [facility] POTASSIUM 4.1 3.3 - 5.1 mmol/L [facility] Comment:Specimen slightly he molyzed, result may be falsely elevated. CO2 25 21 - 35 mmol/L [facility] BUN 12 6 - 19 mg/dL [facility] CREATININE 0.70 0.5 - 1.5 mg/dL [facility] GLUCOSE 100(H) 70 - 99 mg/dL [facility] CALCIUM 9.2 8.4 - 10.3 mg/dL [facility] EGFR 85 >59 mL/min/1.7 3m2 [facility] Comment:Estimated glomerular filtration rate calculated using the CKD-EPI refit equation. ANION GAP 16 10 - 20 mmol/L [facility] Blood 06/17/2025 4:40 AM EDT 06/17/2025 6:16 AM EDT us Kobi Israel MD LAB BLOOD ORDERABLES Final Resul t Performing Organization Address City/[facility]/ZIP Co de Phone Number [address] [address] * (ABNORMAL) Comprehensive metabolic panel (06/04/2025 6:25 AM EDT) SODIUM 139 133 - 146 mmol/L [facility] POTASSIUM 4.9 3.3 - 5.1 mmol/L [facility] Comment:Specimen slightly he molyzed, result may be falsely elevated. CHLORIDE 102 96 - 108 mmol/L [facility] CO2 29 21 - 35 mmol/L [facility] BUN 22(H) 6 - 19 mg/dL [facility] CREATININE 0.70 0.5 - 1.5 mg/dL [facility] GLUCOSE 100(H) 70 - 99 mg/dL [facility] ALBUMIN 3.6(L) 3.9 - 4.8 g/dL [facility] TOTAL PROTEIN 5.7(L) 6.5 - 8.0 g/dL [facility] CALCIUM 9.1 8.4 - 10.3 mg/dL [facility] ALKALINE PHOSPHATASE 143(H) 39 - 117 U/L [facility] TOTAL BILIRUBIN <0.2 0.0 - 1.2 mg/dL [facility] AST 11 0 - 37 U/L [facility] ALT 8 0 - 40 U/L [facility] GLOBULIN 2.1 1 - 4.8 g/dL [facility] EGFR 85 >59 mL/min/1.7 3m2 [facility] Comment:Estimated glomerular filtration rate calculated using the CKD-EPI refit equation. ANION GAP 13 10 - 20 mmol/L [facility] Blood 06/04/2025 6:25 AM EDT 06/04/2025 8:22 AM EDT us Kobi Israel MD LAB BLOOD ORDERABLES Final Resul t [address] [address] * (ABNORMAL) CBC (06/04/2025 6:25 AM EDT) Only the most recent of2 resultswithin the time period is included. WBC 5.30 4.00 - 11.00 K/uL [facility] RBC 4.23 4.00 - 5.20 M/uL [facility] HGB 12.7 12.0 - 16.0 g/dL [facility] HCT 39.8 36.0 - 46.0 % [facility] PLT 170 150 - 450 K/uL [facility] MCV 94.1 80.0 - 100.0 fL [facility] MCH 30.0 27.0 - 31.0 pg [facility] MCHC 31.9(L) 32.0 - 36.0 g/dL [facility] RDW 13.1 11.5 - 14.5 % [facility] MPV 10.4 8.4 - 12.0 fL [facility] NRBC 0.00 0.00 /100 WBCs [facility] ABSOLUTE NRBC 0.00 0.00 K/uL [facility] Blood 06/04/2025 6:25 AM EDT 06/04/2025 8:22 AM EDT us Kobi Israel MD LAB BLOOD ORDERABLES Final Resul t Performing Organization Address City/State/[facility] Co de Phone Number [facility] [address] [place] [address] from Last 3 Months Insurance [employer] [facility] MEDICARE REPLACEMENT [employer] [facility] MEDICARE REPLACEMENT [employer] PPO MEDICARE REPLACEMENT [employer] PPO MEDICARE REPLACEMENT [employer] PPO MEDICARE REPLACEMENT [employer] PPO MEDICARE REPLACEMENT Care Teams Cocoa Mill Operator Relationship Specialty Start Date End Date Pcp, Unknown PCP - General 05/30/25 Additional Source Comments The information contained in this document represents components of the legal health record. It is not the complete legal health record.[facility]
--- OUTSIDE RECORDS SUMMARY | 2025-07-30 15:23 | XMS_ITS | Encounter Summary ---
Author Organization [facility] Address [address] [place] [address] Care Team Providers Care Pathology Specialist Name Role Phone Delaney Ascencio APRN Primary Care Provider Un available Daniella Oleary Primary Care Provider + [phone] Daniella Oleary Unavailable [phone] Reason for Visit * Reason Comments Medication Refill Encounter Details Date Type Department Care Team (Late st Contact Info) Description 03/12/2023 Refill [facility] Department of Internal Medicine [place] [address] [place] [address] Delaney Asecncio APRN *need valid address Hyperlipidemia, unspecified hyperlipidemia [...] Description 08/13/2025 1:45 PM EST Office Visit [facility] Department of Internal Medicine [place] [address] [place] [phone] Daniella Oleary PA [address] [place], [place] [phone] documented as of this encounter Visit Diagnoses Diagnosis Hyperlipidemia, unspecified hyperlipidemia type documented in this encounter Care Teams Pathology Specialist Relationship Specialty Start Date End Date Delaney Ascencio APRN PCP - General 01/23/24 Daniella Oleary PA [address] [place], [place] [phone] PCP - General Internal Medicine 01/24/24 Daniella Oleary PA [address] [place], [place] [phone] PCP - Handy Sweet MA Attributed 04/01/24 01/29/25 documented as of this encounter
--- OUTSIDE RECORDS SUMMARY | 2025-07-30 15:23 | XMS_ITS | Encounter Summary ---
Author Organization [facility] Address [address] [place] [address] Care Team Providers Care Conditioning Coach Name Role Phone Delaney Ascencio APRN Primary Care Provider Un available Daniella Oleary Primary Care Provider + [phone] Daniella Oleary Unavailable [phone] Encounter Details Date Type Department Care Team (Late st Contact Info) Description 01/19/2024 Scanned Document [facility] Department of Internal Medicine [place] [address] [place] [address] Delaney Ascencio APRN *need valid [...] [facility] Department of Internal Medicine [place] [address] [place] [phone] Daniella Oleary PA [address] [place] [address] documented as of this encounter Visit Diagnoses Not on filedocumented in this encounter Care Teams Conditioning Coach Relationship Specialty Start Date End Date Delaney Ascencio MARIA R Hopkins PCP - General 01/23/24 Daniella Oleary PA [address] [place] [address] PCP - General Internal Medicine 01/24/24 Daniella Oleary PA [address] [place] [address] PCP - Handy Sweet MA Attributed 04/01/24 01/29/25 documented as of this encounter
--- OUTSIDE RECORDS SUMMARY | 2025-07-30 15:23 | XMS_ITS | Encounter Summary ---
Author Organization [facility] Address [address] [place] [address] Care Team Providers Care Extension Work Instructor Name Role Phone Daniella Oleary Primary Care Provider + [phone] Daniella Oleary Unavailable [phone] Encounter Details Date Type Department Care Team (Late Contact Info) Description 11/18/2024 Scanned Document [facility] Department of Internal Medicine [place] [address] [place] [phone] Daniella Oleary PA [address] [place] [address] Social History Tobacco Use Types [...] [facility] Department of Internal Medicine [place] [address] [place] [phone] Daniella Oleary PA [address] [place] [address] documented as of this encounter Visit Diagnoses Not on filedocumented in this encounter Care Teams Extension Work Instructor Relationship Specialty Start Date End Date Daniella Oleary PA [address] [place] [address] PCP - General Internal Medicine 01/24/24 Daniella Oleary PA [address] [place], [place] [phone] PCP - Handy Sweet MA Attributed 04/01/24 01/29/25 documented as of this encounter
--- OUTSIDE RECORDS SUMMARY | 2025-07-30 15:23 | XMS_ITS | Encounter Summary ---
Author Organization [facility] Address [address] [place] [address] Care Team Providers Care Navy Diver Name Role Phone Daniella Oleary Primary Care Provider [phone] Encounter Details Date Type Department Care Team (Late st Contact Info) Description 03/14/2025 Scanned Document [facility] Department of Internal Medicine [place] [address] [place] [address] Daniella Oleary PA [address] [place], [place] [phone] Social History Tobacco Use Types Packs/Day Years [...] Description 08/13/2025 1:45 PM EST Office Visit [facility] Department of Internal Medicine [place] [address] [place] [phone] Daniella Oleary PA [address] [place] [address] documented as of this encounter Visit Diagnoses Not on filedocumented in this encounter Care Teams Navy Diver Relationship Specialty Start Date End Date Daniella Oleary PA [address] [address] PCP - General Internal Medicine 01/24/24 documented as of this encounter
--- OUTSIDE RECORDS SUMMARY | 2025-07-30 15:23 | XMS_ITS | Encounter Summary ---
Author Organization [facility] Address [address] [place] [address] Care Team Providers Care Cooler Servicer Name Role Phone Delaney Ascencio APRN Primary Care Provider Un available Daniella Oleary Primary Care Provider + [phone] Daniella Oleary Unavailable [phone] Encounter Details Date Type Department Care Team (Late st Contact Info) Description 06/27/2023 Scanned Document [facility] Department of Internal Medicine [place] [address] [place] [address] Delaney Ascencio APRN *need valid [...] 08/13/2025 1:45 PM EST Office Visit [facility] Department of Internal Medicine [place] [address] [place] [phone] Daniella Oleary PA [address] [place] [address] documented as of this encounter Visit Diagnoses Not on filedocumented in this encounter Care Teams Cooler Servicer Relationship Specialty Start Date End Date Delaney Ascencio MARIA R Hopkins PCP - General 01/23/24 Daniella Oleary PA [address] [place] [address] PCP - General Internal Medicine 01/24/24 Daniella Oleary PA [address] [place] [address] PCP - Handy Sweet MA Attributed 04/01/24 01/29/25 documented as of this encounter
--- OUTSIDE RECORDS SUMMARY | 2025-07-30 15:23 | XMS_ITS | Encounter Summary ---
Author Organization [facility] Address [address] [place] [address] Care Team Providers Care Real Estate Services Administrator Name Role Phone Delaney Ascencio APRN Primary Care Provider Un available Daniella Oleary Primary Care Provider + [phone] Daniella Oleary Unavailable [phone] Encounter Details Date Type Department Care Team (Late st Contact Info) Description 06/02/2023 Scanned Document [facility] Department of Internal Medicine [place] [address] [place] [address] Delaney Ascencio APRN *need valid [...] 08/13/2025 1:45 PM EST Office Visit [facility] Department of Internal Medicine [place] [address] [place] [phone] Daniella Oleary PA [address] [place] [address] documented as of this encounter Visit Diagnoses Not on filedocumented in this encounter Care Teams Real Estate Services Administrator Relationship Specialty Start Date End Date Delaney Ascencio MARIA R Hopkins PCP - General 01/23/24 Daniella Oleary PA [address] [place] [address] PCP - General Internal Medicine 01/24/24 Daniella Oleary PA [address] [place] [address] PCP - Handy Sweet MA Attributed 04/01/24 01/29/25 documented as of this encounter
--- OUTSIDE RECORDS SUMMARY | 2025-07-30 15:23 | XMS_ITS | Encounter Summary ---
Author Organization [facility] Address [address] [place] [address] Care Team Providers Care Golf Starter And Ranger Name Role Phone Delaney Ascencio APRN Primary Care Provider Un available Daniella Oleary Primary Care Provider + [phone] Daniella Oleary Unavailable [phone] Encounter Details Date Type Department Care Team (Late st Contact Info) Description 12/28/2023 Scanned Document [facility] Department of Internal Medicine [address] [phone] Delaney Ascencio APRN *need valid address Social [...] 08/13/2025 1:45 PM EST Office Visit [facility] Department of Internal Medicine [place] [address] [place] [phone] Daniella Oleary PA [address] [place] [address] documented as of this encounter Visit Diagnoses Not on filedocumented in this encounter Care Teams Golf Starter And Ranger Relationship Specialty Start Date End Date Delaney Ascencio MARIA R Hopkins PCP - General 01/23/24 Daniella Oleary PA [address] [place] [address] PCP - General Internal Medicine 01/24/24 Daniella Oleary PA [address] [place] [address] PCP - Handy Sweet MA Attributed 04/01/24 01/29/25 documented as of this encounter
--- OUTSIDE RECORDS SUMMARY | 2025-07-30 15:23 | XMS_ITS | Encounter Summary ---
Author Organization [facility] Address [address] [place] [address] Care Team Providers Care Statistics Teacher Name Role Phone Daniella Oleary Primary Care Provider [phone] Encounter Details Date Type Department Care Team (Late st Contact Info) Description 03/20/2025 Scanned Document [facility] Department of Internal Medicine [place] [address] [place] [address] Daniella Oleary PA [address] [place], [place] [phone] Social History Tobacco Use Types Packs/Day Years [...] [facility] Department of Internal Medicine [place] [address] [place] [phone] Daniella Oleary PA [address] [place] [address] documented as of this encounter Visit Diagnoses Not on filedocumented in this encounter Care Teams Statistics Teacher Relationship Specialty Start Date End Date Daniella Oleary PA [address] [address] PCP - General Internal Medicine 01/24/24 documented as of this encounter
--- OUTSIDE RECORDS SUMMARY | 2025-07-30 15:23 | XMS_ITS | Data Portability ---
Author Organization [place] - [facility], Allergy Address [address] [place] [phone] Assessment Encounter Date Assessment Date Assessment LastModified [...] as risk of infection of a medical information specialist, scar, wound healing. There is an implanted [...] system (PROC) - INSPIRE implant 2023 024 [email or web address] Not available 16:54:43 Surgeries None recorded. [...] Recorded Time Obstructiv e sleep apnea syndrome 31444180 Active 2022 Obstructiv e sleep apnea (adult) (pediatric ); Note: Date Diagnosed: 08/30/2023 12:32 PM (G47.33) Note: Date Diagnosed: 08/30/2023 12:32 PM (G47.33) UAREA JACINTO MD [address] [place] [address], [place], [phone], [facility] - [facility] 4 11:43:41 Body mass index 25-29 - overweight 743431800 Active 2023 AUREA JACINTO MD [address] [place] [address], [place], [phone], [facility] - [facility] 4 13:29:10 Problem Notes None recorded. Procedures Surgical History Date Name Laterality Status Provider Name and Address Organization Details Recorded Time 4 Opn mpltj hpglsl nstm antoni pg completed AUREA JACINTO MD [facility],[address], [phone], [facility] - [facility] 06/20/2024 13:43:40 4 Telehealth completed AUREA JACINTO MD [facility],[address], [phone], [facility] 03/27/2024 13:25:52 4 Dise eval glass furnace operator do [facility] flx dx completed AUREA JACINTO MD [facility],[address], [phone], [facility] 03/18/2024 11:16:47 Imaging Results None recorded. [...] release 24 hr active Medicatio n ID: [id number] Br and Name: divalproe x Send Method: E-Prescri bed Subs Allowed: subs OK Medica tionGener icName: divalproe x Not Available Not Available Not Available rosuvastat in 20 mg tablet TAKE 1 TABLET BY MOUTH EVERY DAY active Not Available Not Available No t Available Vascepa 1 gram capsule active Medicatio n ID: [id number] Br and Name: Cinthya S end Method: E-Prescri bed Subs Allowed: subs OK Medica tionGener icName: Vascepa Not Available Not Available Not Available Qulipta 60 mg tablet active Not Available Not Available No t Available Vitals Date Recorded Body height Body mass index (BMI) Body weight Provider Name and Address Organization Details Last Updated DateTime 06/27/2024 160.02 cm 28 kg/m2 30633.59 g Audie Thrasher [place] - [facility] 06/27/2024 11:09:04 Social History None recorded. [...] [id number] AUREA JACINTO MD [facility] [address] [place] [address] 03/18/2024 00:27:42 03/18/2024 00:27:42 Obstructive sleep apnea syndrome [id number] G47.33 [id number] AUREA JACINTO MD [facility] - [address] [phone] 03/27/2024 13:19:07 03/27/2024 13:29:44 Obstructive sleep apnea syndrome 44414979 G47.33 Milagro is her caregiver and understand s the expectatio ns of activation and deactivati on of device each night. Body mass index 25-29 - overweight [id number] Z68.29 [id number] MELANI FALL PA-C [facility] - [employer] [address] [place] [address] 06/27/2024 10:54:38 06/27/2024 11:32:18 Obstructive sleep apnea syndrome 35627292 G47.33 Postoperative care 12176 9007 Z48.89 Health Concerns Section Related Observation LastModified by Organization Detai ls LastModified Time None Recorded Concern Status LastModified by Organization Details LastModified Time None Recorded Advance Directives Directive None Recorded Payers Insurance Date Sequence Insurance Name Policy Number Policy Cisneros Covered Member ID Cisneros Member ID Guarantor Name 06/29/2024 1 [employer] [id number] Hollie Bowen [id number] Hollie Bowen Notes Date Note Type Note Provider Name and Address Organization Details Recorded Time 03/27/2024 text/html ROS as noted in the HPI TERA - Inspire consult DISE 03/18/24 - Good anatomical candidate for INSPIREBonnie (daughter)split night [facility] [place] 04/17/23BMI - 28AHI - 27central & mixed - no eventsCPAP - tried 3 different masks but was removing it at night - sensation of being choked.tried adjusting force of the air pressurePMHx - dementiauses bathroom 1-2 times per nightfalls asleep wellno hx of throat or nose surgery AUREA JACINTO MD [address] [place] [address], [phone], [place] - [facility] 03/27/2024 13:29:28 06/27/2024 text/html ROS as noted in the HPI 84-year-old female presents status post inspire implant on 06/20/[address] Jacinto. She is doing well postoperatively without any concerns. She is on her last dose of antibiotics. AUREA JACINTO MD [address] [place] [address], [phone], [place] - [facility] 06/27/2024 16:56:52 OBGyn Episode No OBEpisode recorded.
--- OUTSIDE RECORDS SUMMARY | 2025-07-30 15:23 | XMS_ITS | Encounter Summary ---
Author Organization [facility] Address [address] [place] [id number] Care Team Providers Care Scalping Machine Operator Name Role Phone Delaney Ascencio APRN Primary Care Provider Un available Daniella Oleary Primary Care Provider + [phone] Daniella Oleary Unavailable [phone] Encounter Details Date Type Department Care Team (Late st Contact Info) Description 10/25/2023 Scanned Document [facility] Department of Internal Medicine [place] [address] [place] [address] Delaney Ascencio APRN *need valid [...] [facility] Department of Internal Medicine [place] [address] [place] [phone] Daniella Oleary PA [address] [place] [address] documented as of this encounter Visit Diagnoses Not on filedocumented in this encounter Care Teams Scalping Machine Operator Relationship Specialty Start Date End Date Delaney Ascencio MARIA R Hopkins PCP - General 01/23/24 Daniella Oleary PA [address] [place] [address] PCP - General Internal Medicine 01/24/24 Daniella Oleary PA [address] [place] [address] PCP - Handy Sweet [place] Attributed 04/01/24 01/29/25 documented as of this encounter
--- OUTSIDE RECORDS SUMMARY | 2025-07-30 15:23 | XMS_ITS | Encounter Summary ---
Author Organization [facility] Address [address] [place] [address] Care Team Providers Care Frozen Meat Cutter Name Role Phone Delaney Ascencio APRN Primary Care Provider Un available Daniella Oleary Primary Care Provider + [phone] Daniella Oleary Unavailable [phone] Encounter Details Date Type Department Care Team (Late st Contact Info) Description 06/03/2023 Scanned Document [facility] Department of Internal Medicine [place] [address] [place] [address] Delaney Ascencio APRN *need valid [...] Description 08/13/2025 1:45 PM EST Office Visit [facility] Department of Internal Medicine [place] [address] [place] [phone] Daniella Oleary PA [address] [place] [address] documented as of this encounter Visit Diagnoses Not on filedocumented in this encounter Care Teams Frozen Meat Cutter Relationship Specialty Start Date End Date Delaney Ascencio MARIA R Hopkins PCP - General 01/23/24 Daniella Oleary PA [address] [place] [address] PCP - General Internal Medicine 01/24/24 Daniella Oleary PA [address] [place] [address] PCP - Handy Sweet [place] Attributed 04/01/24 01/29/25 documented as of this encounter
== END 2025-07-30 12:33 | disposition home or self-care (01) ==
LOC: HO.HCS 11:58
PROVIDERS: Visit Provider Internal Medicine Cardiovascular Disease
DX: I44.7 Left bundle-branch block, unspecified (principal)
CPT/HCPCS: 93010; 99204; G2211

== ENCOUNTER → 2025-07-30 11:57 | Outpatient (BNVA) | payer MEDICARE, SELFPAY | PROVIDERS: Visit Provider Internal Medicine Cardiovascular Disease | DX: Z01.810 Encounter for preprocedural cardiovascular examination (principal); I71.40 Abdominal aortic aneurysm, without rupture, unspecified; I44.7 Left bundle-branch block, unspecified | CPT/HCPCS: 93005; 99202 ==

== ENCOUNTER 2025-09-24 22:20 | Emergency (ER) | payer MEDICARE, SELFPAY ==
--- NOTE | ~2025-09-24 | CT_ITS ---
CLINICAL HISTORY: trauma CT Head WO Contrast COMPARISON: CT/SR - CT HEAD/BRAIN WO IV CON - 05/26/25 17:31 EDT FINDINGS: No acute intracranial hemorrhage. No evidence of acute infarction. Diffuse cortical volume loss. Nonspecific white matter hypodensities, most commonly associated with chronic microangiopathic changes. No mass-effect or midline shift. No hydrocephalus. Visualized orbits are normal. Cyst or polyp in the left maxillary sinus. Small fluid in the paranasal sinuses. Clear mastoid air cells. No acute fracture. Unremarkable soft tissues. IMPRESSION: No acute intracranial findings. Nonemergent/incidental findings in the report. This document has been electronically signed by: Aniket Monzon MD on 09/24/2025 23:59:24
--- NOTE | ~2025-09-24 | CT_ITS ---
CLINICAL HISTORY: trauma CT Chest WO Contrast COMPARISON: CT/SR - CT CHEST WO IV CON - 05/26/25 17:31 EDT FINDINGS: No pulmonary consolidation or mass. Centrilobular emphysematous changes. No pleural effusion. No pneumothorax. No cardiomegaly. No pericardial effusion. No pathologically enlarged lymph nodes. No thoracic aortic aneurysm. Nondisplaced anterior right 5th, 6th, 7th, and 8th rib fractures. Subacute or chronic appearing left lateral 5th, 6th, and 7th rib fractures with marginal callus formation. Unchanged partially calcified right thyroid nodule measuring 1.1 cm. No imaging follow-up indicated per ACR guidelines. Small hiatal hernia. Neurostimulator device in the anterior right chest wall. IMPRESSION: Nondisplaced right 5-8 rib fractures. Subacute or chronic left 5-7 rib fractures. Nonemergent/incidental findings above. This document has been electronically signed by: Aniket Monzon MD on 09/24/2025 23:51:26
--- NOTE | ~2025-09-24 | CT_ITS ---
CLINICAL HISTORY: trauma CT Cervical Spine WO Contrast COMPARISON: CT/SR - CT CERVICAL SPINE WO IV CON - 05/26/25 17:31 EDT FINDINGS: No acute fracture. Degenerative changes in the spine. Chronic grade 1 spondylolistheses. Soft tissues are normal. Centrilobular emphysematous changes in the upper lungs. IMPRESSION: No acute findings. Nonemergent/incidental findings above. This document has been electronically signed by: Aniket Monzon MD on 09/24/2025 23:43:16
[2025-09-24 22:27] VITALS: BP 191/92; BP 196/100; PULSE 50; PULSE 53; RESP 16; TEMP 36.4; O2SAT 96
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
[2025-09-24 23:07] LABS: Hematocrit 39.7 % (37.0-47.0); Hemoglobin 13.2 g/dl (12.0-16.0); Imm Gran Abs Auto 0.04 X10*3/uL (0.00-0.03); Imm Gran Pct Auto 0.5 % (0.0-0.4); Lymphocytes Absolute Auto 2.1 X10*3/uL (1.2-4.9); Mean Corpuscular HGB Conc 33.2 g/dl (31.0-35.0); Mean Corpuscular Hemoglobin 30.2 pg (27.0-33.0); Mean Corpuscular Volume 90.8 fL (80.0-98.0); NRBC Abs Auto 0.000 X10*3/uL (0.0-0.012); NRBC Pct Auto 0.0 /100WBC (0.0-0.2); Platelet Count 199 X10*3/uL (160-400); Red Blood Count 4.37 X10*6/uL (4.20-5.50); White Blood Count 7.5 X10*3/uL (4.8-10.8)
[2025-09-24 23:08] LABS: MANUAL DIFF FLAG NO
[2025-09-24 23:21] LABS: Alanine Aminotransferase 33 U/L (0-31); Albumin Level 4.4 g/dL (3.5-5.0); Alkaline Phosphatase 165 U/L (39-117); Anion Gap 13 (12-20); Aspartate Amino Transferase 34 U/L (5-31); Blood Urea Nitrogen 18 mg/dL (9-16); Calcium 9.4 mg/dL (8.4-10.2); Carbon Dioxide 27 mmol/L (22-29); Chloride 102 mmol/L (96-108); Creatinine Clr Calc Pharmacy 49.0; Estimated Glomerular Filt Rate > 60; Magnesium 2.1 mg/dL (1.6-2.6); Potassium 4.2 mmol/L (3.3-5.1); Sodium 138 mmol/L (135-145); Total Protein 7.1 g/dL (6.5-8.0)
--- OUTSIDE RECORDS SUMMARY | 2025-09-24 23:21 | XMS_ITS | Encounter Summary ---
Author Organization [facility] Address [address] [place] [address] Care Team Providers Care Public Policy Manager Name Role Phone Delaney Ascencio APRN Primary Care Provider Un available Daniella Oleary Primary Care Provider + [phone] Daniella Oleary Unavailable [phone] Encounter Details Date Type Department Care Team (Late st Contact Info) Description 01/19/2024 Scanned Document [facility] Department of Internal Medicine [place] [address] [place] [phone] Delaney Ascencio APRN *need valid address Social [...] as of this encounter Plan of Treatment Not on file documented as of this encounter Visit Diagnoses Not on filedocumented in this encounter Care Teams Public Policy Manager Relationship Specialty Start Date End Date Delaney Ascencio APRN PCP - General 01/23/24 Daniella Oleary PA [address] [place] [address] PCP - General Internal Medicine 01/24/24 Daniella Oleary PA [address] [place] [address] PCP - Handy Sweet MA Attributed 04/01/24 01/29/25 documented as of this encounter
--- OUTSIDE RECORDS SUMMARY | 2025-09-24 23:21 | XMS_ITS | Encounter Summary ---
Author Organization [facility] Address [address] [place] [address] Care Team Providers Care Direct Marketing Executive Name Role Phone Daniella Oleary Primary Care Provider +- [phone] Encounter Details Date Type Department Care Team (Late st Contact Info) Description 03/14/2025 Scanned Document [facility] Department of Internal Medicine [place] [address] [place] [phone] Daniella Oleary PA [address] [place] [address] Social History Tobacco Use Types Packs/Day Years [...] on filedocumented in this encounter Care Teams Direct Marketing Executive Relationship Specialty Start Date End Date Daniella Oleary PA [address] [place], [place] [address] PCP - General Internal Medicine 01/24/24 documented as of this encounter
--- OUTSIDE RECORDS SUMMARY | 2025-09-24 23:21 | XMS_ITS | Encounter Summary ---
Author Organization [facility] Address [address] [place] [address] Care Team Providers Care Retort Cooler Name Role Phone Delaney Ascencio APRN Primary Care Provider Un available Daniella Oleary Primary Care Provider + [phone] Daniella Oleary Unavailable +[phone] Encounter Details Date Type Department Care Team (Late st Contact Info) Description 06/02/2023 Scanned Document [facility] Department of Internal Medicine [place] [address] [place] [address] Delaney Ascencio APRN *need valid address Social [...] on filedocumented in this encounter Care Teams Retort Cooler Relationship Specialty Start Date End Date Delaney Ascencio APRN PCP - General 01/23/24 Daniella Oleary PA [address] [place] [address] PCP - General Internal Medicine 01/24/24 Daniella Oleary PA [address] [place] [address] PCP - Handy Sweet MA Attributed 04/01/24 01/29/25 documented as of this encounter
--- OUTSIDE RECORDS SUMMARY | 2025-09-24 23:21 | XMS_ITS | Encounter Summary ---
Author Organization [facility] Address [address] [facility] [place] [address] Phone Care Team Providers Care Crusher Operator Name Role Phone Pcp, Unknown Primary Care Provider Unavailabl e Encounter Details Date Type Department Care Team (Late st Contact Info) Description 09/09/2025 Lab Requisition [facility] Main [address] [place] [address] Kobi Israel MD [address] [facility], [address] [place] [address] [email or web address] Hypothyroidism, unspecified Social History Tobacco Use Types Packs/Day Years [...] on file Sexual Orientation Not on file documented as of this encounter Plan of Treatment Not on file documented as of this encounter Procedures Procedure Name Priority Date/Time Associated Diagnosis Comments CBC Today 09/09/2025 5:30 AM EST Hypothyroidism, unspecified URIC ACID Today 09/09/2025 5:30 AM EST Hypothyroidism, unspecified BASIC METABOLIC PANEL (BMP) Today 09/09/2025 5:30 AM EST Hypothyroidism, unspecified documented in this encounter Results * (ABNORMAL) CBC (09/09/2025 5:30 AM EST) WBC 5.05 4.00 - 11.00 K/uL 09/09/2025 7:12 AM [facility] RBC 3.98(L) 4.00 - 5.20 M/uL 09/09/2025 7:12 AM [facility] Hemoglobin 12.2 12.0 - 16.0 g/dL 09/09/2025 7:12 AM [facility] Hematocrit 36.9 36.0 - 46.0 % 09/09/2025 7:12 AM [facility] MCV 92.7 80.0 - 100.0 fL 09/09/2025 7:12 AM [facility] MCH 30.7 27.0 - 31.0 pg 09/09/2025 7:12 AM [facility] MCHC 33.1 32.0 - 36.0 g/dL 09/09/2025 7:12 AM [facility] PLT 163 150 - 450 K/uL 09/09/2025 7:12 AM [facility] MPV 10.4 8.4 - 12.0 fL 09/09/2025 7:12 AM [facility] RDW-CV 13.4 11.5 - 14.5 % 09/09/2025 7:12 AM [facility] Absolute NRBC 0.00 <=0.00 K cells/uL 09/09/2025 7:12 AM [facility] NRBC 0.0 <=0.0 /100 WBCs 09/09/2025 7:12 AM [facility] Blood (Blood) 09/09/2025 5:3 0 AM EST 09/09/2025 6:42 AM EST us Kobi Israel MD LAB BLOOD BKR ORDERABLES Final R esult [facility] [address] [place] [address] * (ABNORMAL) Basic Metabolic Panel (BMP) (09/09/2025 5:30 AM EST) Sodium 141 136 - 145 mmol/L 09/09/2025 7:30 AM [facility] Potassium 4.4 3.4 - 5.1 mmol/L 09/09/2025 7:30 AM [facility] Chloride 103 98 - 107 mmol/L 09/09/2025 7:30 AM [facility] CO2 28 20 - 31 mmol/L 09/09/2025 7:30 AM [facility] BUN 21 6 - 23 mg/dL 09/09/2025 7:30 AM [facility] Creatinine 0.60 0.50 - 1.00 mg/dL 09/09/2025 7:30 AM [facility] Glucose 102(H) 70 - 99 mg/dL 09/09/2025 7:30 AM [facility] Calcium 9.2 8.5 - 10.5 mg/dL 09/09/2025 7:30 AM [facility] eGFR 88 >59 mL/min/1.7 3m2 09/09/2025 7:30 AM [facility] Comment:Estimated glomerular filtration rate calculated using the CKD-EPI refit equation. Anion Gap 10 3 - 17 mmol/L 09/09/2025 7:30 AM [facility] Blood (Blood) 09/09/2025 5:3 0 AM EST 09/09/2025 6:42 AM EST us Kobi Israel MD LAB BLOOD BKR ORDERABLES Final R esult [facility] [address] [place] [address] * (ABNORMAL) Uric Acid (09/09/2025 5:30 AM EST) Uric Acid 2.0(L) 2.4 - 5.7 mg/dL 09/09/2025 7:30 AM [facility] Blood (Blood) 09/09/2025 5:3 0 AM EST 09/09/2025 6:42 AM EST us Kobi Israel MD LAB BLOOD BKR ORDERABLES Final R esult [address] [address] documented in this encounter Visit Diagnoses Diagnosis Hypothyroidism, unspecified documented in this encounter Care Teams Crusher Operator Relationship Specialty Start Date End Date Pcp, Unknown PCP - General 05/30/25 documented as of this encounter Additional Source Comments The information contained in this document represents components of the legal health record. It is not the complete legal health record.[facility]
--- OUTSIDE RECORDS SUMMARY | 2025-09-24 23:21 | XMS_ITS | Encounter Summary ---
Author Organization [facility] Address [address] [place] [address] Care Team Providers Care Rn First Assist Name Role Phone Delaney Ascencio APRN Primary Care Provider Un available Daniella Oleary Primary Care Provider + [phone] Daniella Oleary Unavailable [phone] Encounter Details Date Type Department Care Team (Late st Contact Info) Description 01/01/2024 Scanned Document [facility] Department of Internal Medicine [address] [address] Dealney Ascencio APRN *need valid address Social History [...] on filedocumented in this encounter Care Teams Rn First Assist Relationship Specialty Start Date End Date Delaney Ascencio APRN PCP - General 01/23/24 Daniella Oleary PA [address] [place] [address] PCP - General Internal Medicine 01/24/24 Daniella Oleary PA [address] [place] [address] PCP - Handy Sweet MA Attributed 04/01/24 01/29/25 documented as of this encounter
--- OUTSIDE RECORDS SUMMARY | 2025-09-24 23:21 | XMS_ITS | Clinical Summary ---
Author Organization [facility] Address [address] [place] [address] Care Team Providers Care Heat Treating Operator Name Role Phone Daniella Oleary Primary Care Provider [phone] Allergies No known active allergies Medications donepezil (ARICEPT) 10 MG tabletIndications:M edication refill Take 1 tablet (10 mg total) by mouth nightly. 30 tablet 3 4 Active ergocalciferol (VITAMIN D2,DRISDOL) 72882 units CapIndications:Gay min D deficiency Take 1 [...] Type Department Care Team Description 07/02/2025 Documentation [facility] Department of Internal Medicine [place] [address] [place] [phone] Daniella Oleary PA from Last 3 Months Immunizations Immunization Administration [...] 02/06/2025 12:59 PM EDT Plan of Treatment Health Maintenance Due [...] topic Insurance [employer] MGD MEDICARE Care Teams Heat Treating Operator Relationship Specialty Start Date End Date Daniella Oleary PA [address] [place] [address] PCP - General Internal Medicine 01/24/24
--- OUTSIDE RECORDS SUMMARY | 2025-09-24 23:21 | XMS_ITS | Encounter Summary ---
Author Organization [facility] Address [address] [place] [address] Care Team Providers Care Broadcaster Name Role Phone Daniella Oleary Primary Care Provider +- [phone] Encounter Details Date Type Department Care Team (Late st Contact Info) Description 03/20/2025 Scanned Document [facility] Department of Internal Medicine [place] [address] [place] [address] Daniella Oleary PA [address] [place] [address] Social History Tobacco Use Types Packs/Day Years [...] on filedocumented in this encounter Care Teams Broadcaster Relationship Specialty Start Date End Date Daniella Oleary PA [address] [place], [place] [address] PCP - General Internal Medicine 01/24/24 documented as of this encounter
--- OUTSIDE RECORDS SUMMARY | 2025-09-24 23:21 | XMS_ITS | Encounter Summary ---
Author Organization [facility] Address [address] [place] [address] Care Team Providers Care Wall Scraper Name Role Phone Delaney Ascencio APRN Primary Care Provider Un available Daniella Oleary Primary Care Provider + [phone] Daniella Oleary Unavailable [phone] Encounter Details Date Type Department Care Team (Late st Contact Info) Description 06/03/2023 Scanned Document [facility] Department of Internal Medicine [place] [address] [place] [address] Delaney Ascencio APRN *need valid address Social [...] on filedocumented in this encounter Care Teams Wall Scraper Relationship Specialty Start Date End Date Delaney Ascencio APRN PCP - General 01/23/24 Daniella Oleary PA [address] [place] [address] PCP - General Internal Medicine 01/24/24 Daniella Oleary PA [address] [place] [address] PCP - Handy Sweet MA Attributed 04/01/24 01/29/25 documented as of this encounter
--- OUTSIDE RECORDS SUMMARY | 2025-09-24 23:21 | XMS_ITS | Encounter Summary ---
Author Organization [facility] Address [address] [place] [address] Care Team Providers Care Hybrid Car Mechanic Name Role Phone Delaney Ascencio APRN Primary Care Provider Un available Daniella Oleary Primary Care Provider + [phone] Daniella Oleary Unavailable [phone] Encounter Details Date Type Department Care Team (Late st Contact Info) Description 06/27/2023 Scanned Document [facility] Department of Internal Medicine [place] [address] [place] [address] Delaney Ascencio APRN *need valid address Social [...] on filedocumented in this encounter Care Teams Hybrid Car Mechanic Relationship Specialty Start Date End Date Delaney Ascencio APRN PCP - General 01/23/24 Daniella Oleary PA [address] [place] [address] PCP - General Internal Medicine 01/24/24 Daniella Oleary PA [address] [place] [address] PCP - Handy Sweet MA Attributed 04/01/24 01/29/25 documented as of this encounter
--- OUTSIDE RECORDS SUMMARY | 2025-09-24 23:21 | XMS_ITS | Encounter Summary ---
Author Organization [facility] Address [address] [place] [address] Care Team Providers Care Hydrodynamics Professor Name Role Phone Daniella Oleary Primary Care Provider + [phone] Daniella Oleary Unavailable [phone] Encounter Details Date Type Department Care Team (Late st Contact Info) Description 11/18/2024 Scanned Document [facility] Department of Internal Medicine [place] [address] [place] [phone] Daniella Oleary PA [address] [place] [address] Social History Tobacco Use Types Packs/Day Years [...] on filedocumented in this encounter Care Teams Hydrodynamics Professor Relationship Specialty Start Date End Date Daniella Oleary PA [address] [place] [address] PCP - General Internal Medicine 01/24/24 Daniella Oleary PA [address] [place] [address] PCP - Handy Sweet MA Attributed 04/01/24 01/29/25 documented as of this encounter
--- OUTSIDE RECORDS SUMMARY | 2025-09-24 23:21 | XMS_ITS | Encounter Summary ---
Author Organization [facility] Address [address] [place] [address] Care Team Providers Care Paradichlorobenzene Tender Name Role Phone Delaney Ascencio APRN Primary Care Provider Un available Daniella Oleary Primary Care Provider Daniella Oleary Unavailable [phone] Encounter Details Date Type Department Care Team (Late st Contact Info) Description 01/02/2024 Scanned Document [facility] Department of Internal Medicine [place] [address] [place] [address] Delaney Ascencio APRN *need valid address Social [...] on filedocumented in this encounter Care Teams Paradichlorobenzene Tender Relationship Specialty Start Date End Date Delaney Ascencio APRN PCP - General 01/23/24 Daniella Oleary PA [address] [place] [address] PCP - General Internal Medicine 01/24/24 Daniella Oleary PA [address] [place] [address] PCP - Handy Sweet MA Attributed 04/01/24 01/29/25 documented as of this encounter
--- OUTSIDE RECORDS SUMMARY | 2025-09-24 23:21 | XMS_ITS | Encounter Summary ---
Author Organization [facility] Address [address] [place] [address] Care Team Providers Care Requirements Engineer Name Role Phone Delaney Ascencio APRN Primary Care Provider Un available Daniella Oleary Primary Care Provider + [phone] Daniella Oleary Unavailable [phone] Encounter Details Date Type Department Care Team (Late st Contact Info) Description 12/28/2023 Scanned Document [facility] Department of Internal Medicine [address] [address] Delaney Ascencio APRN *need valid address Social [...] on filedocumented in this encounter Care Teams Requirements Engineer Relationship Specialty Start Date End Date Delaney Ascencio APRN PCP - General 01/23/24 Daniella Oleary PA [address] [place] [address] PCP - General Internal Medicine 01/24/24 Daniella Oleary PA [address] [place] [address] PCP - Handy Sweet MA Attributed 04/01/24 01/29/25 documented as of this encounter
--- OUTSIDE RECORDS SUMMARY | 2025-09-24 23:21 | XMS_ITS | Encounter Summary ---
Author Organization [facility] Address [address] [place] [address] Care Team Providers Care Tile And Mottle Supervisor Name Role Phone Delaney Ascencio APRN Primary Care Provider Un available Daniella Oleary Primary Care Provider + [phone] Daniella Oleary Unavailable [phone] Encounter Details Date Type Department Care Team (Late st Contact Info) Description 06/09/2023 Scanned Document [facility] Department of Internal Medicine [place] [address] [place] [address] Delaney Ascencio APRN *need valid address Social [...] on filedocumented in this encounter Care Teams Tile And Mottle Supervisor Relationship Specialty Start Date End Date Delaney Ascencio APRN PCP - General 01/23/24 Daniella Oleary PA [address] [place] [address] PCP - General Internal Medicine 01/24/24 Daniella Oleary PA [address] [place] [address] PCP - Handy Sweet MA Attributed 04/01/24 01/29/25 documented as of this encounter
--- OUTSIDE RECORDS SUMMARY | 2025-09-24 23:22 | XMS_ITS | Clinical Summary ---
Author Organization [facility] it Address [address] [place] [address] Care Team Providers Care Sequencing Machine Operator Name Role Phone Jocelynn Avila MD Primary Care Provider [phone] Medical History Medical History Date Comments Dementia [...] Orientation Not on file Plan of Treatment Health Maintenance Due Date Last Done Comments Pneumococcal Vaccine: 50+ Ye ars (1 of 1 - PCV) 01/06/1990 Zoster Vaccines (1 of 2) 01/06/1990 RSV Immunization Adult Patie nts (1 - 1-dose 75+ series) 01/06/2015 Falls Risk Assessment 09/04/2022 Social Influencers of Health Screening 09/04/2022 Depression Screening 10/02/2024 COVID-19 Vaccine (1 - 2024-2 6 season) 2025 Influenza Vaccine (#1) 2025 DTaP,Tdap,and [...] Procedure Name Priority Date/Time Associated Diagnosis Comments [facility] DEXA AXIAL SKELETON Routine 09/26/2023 7:49 AM EST Encounter for screening for osteoporosis from Last 3 Months or Most Recently Relevant to Health Maintenance Results * [facility] DEXA AXIAL SKELETON (09/26/2023 7:49 AM EST) Anatomical Region Laterality Modality Mammography 09/22/2023 3:01 PM EST Narrative 09/26/2023 7:49 AM EST [facility] Diagnostic Imaging Department [address] [place] [address] Patient: GINO BOWEN Kane /Age/Sex: 1940 83 - F Unit#: [id number] Location/Status: SPDIMAM/REG CLI Mnemonic[facility] Ordering Physician: DELANEY NOE NP [facility] Dexa Axial Skeleton - 09/22/23 - [...] probability of hip fracture of 7.2%. Code 90078 Dictating Physician: ZAYRA BAUMAN MD Electronically Signed by: ZAYRA BAUMAN MD Dic Date/Time: 09/26/2348 Sign date/Time: 09/26/23748 Procedure Note Zayra Bauman MD - 11/07/2023 [facility] Diagnostic Imaging Department [address] [place], [place] [id number] Patient: ISAELGINO GALINDO/Age/Sex: 1940 - 83 - F Unit#: [id number] Location/Status: [facility]/REG CLI Mnemonic[facility] Ordering Physician: DELANEY NOE CHAIN CARRIER [facility] Dexa Axial Skeleton - 09/22/23 - 1535 Report Status:Signed HISTORY: The patient is an [...] density of the femurs bilaterally is 0.701 gm/il1nzsig is 70% of that of young normals [...] probability of hip fracture of 7.2%. Code 04918 Dictating Physician: ZAYRA BAUMAN MD Electronically Signed by: ZAYRA BAUMAN MD Dic Date/Time: 09/26/2348 Sign date/Time: 09/26/2349 Delaney Sonu AGRICULTURAL EQUIPMENT OPERATOR IMG BI PROCEDURES Final Resu lt from Last 3 Months or Most Recently Relevant to Health Maintenance Care Teams Sequencing Machine Operator Relationship Specialty Start Date End Date Jocelynn Avila MD [address] [place] [address] PCP - General Family Medicine 12/30/21
--- OUTSIDE RECORDS SUMMARY | 2025-09-24 23:22 | XMS_ITS | Clinical Summary ---
Author Organization [facility] Address [address] [facility] [address] [place] [address] Phone Care Team Providers Care Conference Services Director Name Role Phone Pcp, Unknown Primary Care Provider Unavailabl e Encounters Date Type Department Care Team Description 09/09/2025 Lab Requisition [facility] Lab Main [address] [place], [place] [id number] Kobi Israel MD Hypothyroidism, unspecified from Last 3 Months Social History Tobacco [...] Today 09/09/2025 5:30 AM EST Hypothyroidism, unspecified from Last 3 Months Results * (ABNORMAL) CBC (09/09/2025 5:30 AM EST) WBC 5.05 4.00 - 11.00 K/uL 09/09/2025 7:12 AM [facility] RBC 3.98(L) 4.00 - 5.20 M/uL 09/09/2025 7:12 AM [facility] Hemoglobin 12.2 12.0 - 16.0 g/dL 09/09/2025 7:12 AM [facility] Hematocrit 36.9 36.0 - 46.0 % 09/09/2025 7:12 AM [facility] MCV 92.7 80.0 - 100.0 fL 09/09/2025 7:12 AM [facility] MCH 30.7 27.0 - 31.0 pg 09/09/2025 7:12 AM [facility] MCHC 33.1 32.0 - 36.0 g/dL 09/09/2025 7:12 AM [facility] PLT 163 150 - 450 K/uL 09/09/2025 7:12 AM [facility] MPV 10.4 8.4 - 12.0 fL 09/09/2025 7:12 AM [facility] RDW-CV 13.4 11.5 - 14.5 % 09/09/2025 7:12 AM [facility] Absolute NRBC 0.00 <=0.00 K cells/uL 09/09/2025 7:12 AM [facility] NRBC 0.0 <=0.0 /100 WBCs 09/09/2025 7:12 AM [facility] Blood (Blood) 09/09/2025 5:3 0 AM EST 09/09/2025 6:42 AM EST us Kobi Israel MD LAB BLOOD BKR ORDERABLES Final R esult [facility] [address] [place] [address] * (ABNORMAL) Uric Acid (09/09/2025 5:30 AM EST) Uric Acid 2.0(L) 2.4 - 5.7 mg/dL 09/09/2025 7:30 AM [facility] Blood (Blood) 09/09/2025 5:3 0 AM EST 09/09/2025 6:42 AM EST us Kobi Israel MD LAB BLOOD BKR ORDERABLES Final R esult Performing Organization Address City/[facility]/ZIP Co de Phone Number [address] [address] * (ABNORMAL) Basic Metabolic Panel (BMP) (09/09/2025 5:30 AM EST) Pathologist [facility] Sodium 141 136 - 145 mmol/L 09/09/2025 7:30 AM [facility] Potassium 4.4 3.4 - 5.1 mmol/L 09/09/2025 7:30 AM [facility] Chloride 103 98 - 107 mmol/L 09/09/2025 7:30 AM [facility] CO2 28 20 - 31 mmol/L 09/09/2025 7:30 AM [facility] BUN 21 6 - 23 mg/dL 09/09/2025 7:30 AM [facility] Creatinine 0.60 0.50 - 1.00 mg/dL 09/09/2025 7:30 AM [facility] Glucose 102(H) 70 - 99 mg/dL 09/09/2025 7:30 AM [facility] Calcium 9.2 8.5 - 10.5 mg/dL 09/09/2025 7:30 AM [facility] eGFR 88 >59 mL/min/1.7 3m2 09/09/2025 7:30 AM [facility] Comment:Estimated glomerular filtration rate calculated using the CKD-EPI refit equation. Anion Gap 10 3 - 17 mmol/L 09/09/2025 7:30 AM [facility] Blood (Blood) 09/09/2025 5:3 0 AM EST 09/09/2025 6:42 AM EST us Kobi Israel MD LAB BLOOD BKR ORDERABLES Final R esult [address] [address] from Last 3 Months Insurance [employer] PPO MEDICARE REPLACEMENT [employer] PPO MEDICARE REPLACEMENT [employer] PPO MEDICARE REPLACEMENT [employer]ET[employer] O MEDICARE REPLACEMENT [employer] O MEDICARE REPLACEMENT [employer] O MEDICARE REPLACEMENT Care Teams Conference Services Director Relationship Specialty Start Date End Date Pcp, Unknown PCP - General 05/30/25 Additional Source Comments The information contained in this document represents components of the legal health record. It is not the complete legal health record.[facility]
--- OUTSIDE RECORDS SUMMARY | 2025-09-24 23:22 | XMS_ITS | Data Portability ---
Author Organization [place] - [facility], All[facility] Address [address] [place] [phone] Assessment Encounter Date Assessment Date Assessment LastModified [...] as risk of infection of a medical physiologist, scar, wound healing. There is an implanted [...] system (PROC) - INSPIRE implant 2023 024 [email or web address] Not available 16:54:43 Surgeries None recorded. [...] Recorded Time Obstructiv e sleep apnea syndrome 39903727 Active 2022 Obstructiv e sleep apnea (adult) (pediatric ); Note: Date Diagnosed: 08/30/2023 12:32 PM (G47.33) Note: Date Diagnosed: 08/30/2023 12:32 PM (G47.33) AUREA JACINTO MD [address] [place] [address], [place], [phone], [facility] - [facility] 4 11:43:41 Body mass index 25-29 - overweight 702774032 Active 2023 AUREA JACINTO MD [address] [place] [address], [place], [phone], [facility] - [facility] 4 13:29:10 Problem Notes None recorded. Procedures Surgical History Date Name Laterality Status Provider Name and Address Organization Details Recorded Time 4 Opn mpltj hpglsl nstm antoni pg completed AUREA JACINTO MD [address] [facility],[address], [address], [facility] - [facility] 06/20/2024 13:43:40 4 Telehealth completed AUREA JACINTO MD [address] [facility],[address], [address], [facility] 03/27/2024 13:25:52 4 Dise eval [employer] travel counselor do [facility] flx dx completed AUREA JACINTO MD [address] [facility],[address], [address], [facility] 03/18/2024 [...] release 24 hr active Medicatio n ID: [id number] Br and Name: divalproe x Send Method: E-Prescri bed Subs Allowed: subs [place] Medica tionGener icName: divalproe x Not Available Not Available Not Available rosuvastat in 20 mg tablet TAKE 1 TABLET BY MOUTH EVERY DAY active Not Available Not Available No t Available Vascepa 1 gram capsule active Medicatio n ID: [id number] Br and Name: Cinthya S end Method: E-Prescri bed Subs Allowed: subs [place] Medica tionGener icName: Vascepa Not Available Not Available Not Available Qulipta 60 mg tablet active Not Available Not Available No t Available Vitals Date Recorded Body height Body mass index (BMI) Body weight Provider Name and Address Organization Details Last Updated DateTime 06/27/2024 160.02 cm 28 kg/m2 11336.59 g Audie Thrasher ID - [facility] [...] Note [id number] AUREA JACINTO MD [facility] [address] [place] [address] 03/18/2024 00:27:42 03/18/2024 00:27:42 Obstructive sleep apnea syndrome 84645148 G47.33 5596 AUREA JACINTO MD [facility] - [address] [address] 03/27/2024 13:19:07 03/27/2024 13:29:44 Obstructive sleep apnea syndrome 73638279 G47.33 Milagro is her caregiver and understand s the expectatio ns of activation and deactivati on of device each night. Body mass index 25-29 - overweight 747683621 Z68.29 [id number] MELANI FALL PA-C [facility] - [facility] [address] [place] [address] 06/27/2024 10:54:38 06/27/2024 11:32:18 Obstructive sleep apnea syndrome 06079840 G47.33 Postoperative care 43283 9007 Z48.89 Health Concerns Section Related Observation LastModified by Organization Detai ls LastModified Time None Recorded Concern Status LastModified by Organization Details LastModified Time None Recorded Advance Directives Directive None Recorded Payers Insurance Date Sequence Insurance Name Policy Number Policy Cisneros Covered Member ID Cisneros Member ID Guarantor Name 06/29/2024 1 [employer] [id number] Hollie Bowen [id number] Hollie Bowen Notes Date Note Type Note Provider Name and Address Organization Details Recorded Time 03/27/2024 text/html ROS as noted in the HPI TERA - Inspire consult DISE 03/18/24 - Good anatomical candidate for INSPIREBonnie (daughter)split night [facility] [place] 04/17/23BMI - 28AHI - 27central & mixed - no eventsCPAP - tried 3 different masks but was removing it at night - sensation of being choked.tried adjusting force of the air pressurePMHx - dementiauses bathroom 1-2 times per nightfalls asleep wellno hx of throat or nose surgery AUREA JACINTO MD [address] [place] [address], [phone], [place] - [facility] 03/27/2024 13:29:28 06/27/2024 text/html ROS as noted in the HPI 84-year-old female presents status post inspire implant on 06/20/[address] Jacinto. She is doing well postoperatively without any concerns. She is on her last dose of antibiotics. AUREA JACINTO MD [address] [place] [address], [address], [place] [facility] 06/27/2024 16:56:52 OBGyn Episode No OBEpisode recorded.
--- OUTSIDE RECORDS SUMMARY | 2025-09-24 23:22 | XMS_ITS | Encounter Summary ---
Author Organization [facility] Address [address] [place] [address] Care Team Providers Care Regulatory Compliance Engineer Name Role Phone Daniella Oleary Primary Care Provider +- [phone] Encounter Details Date Type Department Care Team (Late st Contact Info) Description 05/30/2025 Scanned Document [facility] Department of Internal Medicine [place] [address] [place] [address] Daniella Oleary PA [address] [place] [address] Social History Tobacco Use Types Packs/Day Years [...] on filedocumented in this encounter Care Teams Regulatory Compliance Engineer Relationship Specialty Start Date End Date Daniella Oleary PA [address] [place], [place] [address] PCP - General Internal Medicine 01/24/24 documented as of this encounter
--- OUTSIDE RECORDS SUMMARY | 2025-09-24 23:22 | XMS_ITS | Clinical Summary ---
Author Organization [facility] Prior to 03/01/25 Address [address] [place] [address] Care Team Providers Care Dye Penetrant Testing Technician Name Role Phone Jocelynn Avila MD Primary Care Provider [phone] Allergies No known active allergies Medications Medication [...] age to complete this topic Care Teams Dye Penetrant Testing Technician Relationship Specialty Start Date End Date Jocelynn Avila MD [address] [place] [address] PCP - General Family Medicine 12/30/21
--- OUTSIDE RECORDS SUMMARY | 2025-09-24 23:22 | XMS_ITS | Encounter Summary ---
Author Organization [facility] Address [address] [place] [address] Care Team Providers Care Baling Machine Operator Name Role Phone Delaney Ascencio APRN Primary Care Provider Un available Daniella Oleary Primary Care Provider + [phone] Daniella Oleary Unavailable [phone] Encounter Details Date Type Department Care Team (Late st Contact Info) Description 12/26/2023 Scanned Document [facility] Department of Internal Medicine [place] [address] [place] [address] Delaney Ascencio APRN *need valid address Social [...] on filedocumented in this encounter Care Teams Baling Machine Operator Relationship Specialty Start Date End Date Delaney Ascencio APRN PCP - General 01/23/24 Daniella Oleary PA [address] [place] [address] PCP - General Internal Medicine 01/24/24 Daniella Oleary PA [address] [place] [address] PCP - Handy Sweet [place] Attributed 04/01/24 01/29/25 documented as of this encounter
[2025-09-25] MEDS: Diphth,Pertus(ACell),Tet Adult 0.5 ML SYRINGE IM (00:20)
[2025-09-25] MEDS: Lidocaine HCl 1%/Epi 1:100,000 10 ML VIAL INFILTRATI (00:20)
[2025-09-25 00:55] VITALS: BP 154/98; PULSE 48; RESP 12; TEMP 36.3; O2SAT 96
[2025-09-25 02:36] LABS: Resp Syncy Virus RNA Qual PCR NEGATIVE (Negative); SARS COV2 PCR INHOUSE NEGATIVE (Negative)
--- NOTE | 2025-09-25 02:41 | PC.NURSE ---
report given to Ana Laura HOLDER at [facility] [phone]. awaiting ems transport to facility.
[2025-09-25 05:00] VITALS: BP 134/45; PULSE 74; RESP 16; TEMP 36.9; O2SAT 95
== END 2025-09-25 05:00 | disposition skilled nursing facility (03) ==
PROVIDERS: Physician Assistant Medical; Emergency Provider Emergency Medicine; PCP Physician Assistant Medical
DX: S22.43XA Multiple fractures of ribs, bilateral, initial encounter for closed fracture (principal); S01.511A Laceration without foreign body of lip, initial encounter; W01.0XXA Fall on same level from slipping, tripping and stumbling without subsequent striking against object, initial encounter; R51.9 Headache, unspecified; R29.6 Repeated falls; Z91.81 History of falling; R26.89 Other abnormalities of gait and mobility; Y93.89 Activity, other specified; Y92.128 Other place in nursing home as the place of occurrence of the external cause; Y99.9 Unspecified external cause status; I10 Essential (primary) hypertension; E78.5 Hyperlipidemia, unspecified; E03.9 Hypothyroidism, unspecified; E55.9 Vitamin D deficiency, unspecified; F03.90 Unspecified dementia, unspecified severity, without behavioral disturbance, psychotic disturbance, mood disturbance, and anxiety; Z79.02 Long term (current) use of antithrombotics/antiplatelets; Z79.899 Other long term (current) drug therapy; Z23 Encounter for immunization; Z03.818 Encounter for observation for suspected exposure to other biological agents ruled out
CPT/HCPCS: 12011; 36415; 70450; 71250; 72125; 80053; 83735; 85025; 87637; 90471; 90715; 94010; 96374; 96375; 99284; J0131; J2004; J2270; J2405

== ENCOUNTER → 2025-09-24 22:29 | Outpatient (BNV) | payer MEDICARE, SELFPAY | PROVIDERS: Emergency Provider Emergency Medicine; PCP Physician Assistant Medical; Visit Provider Radiology Diagnostic Radiology | DX: R07.9 Chest pain, unspecified (principal); R51.9 Headache, unspecified; M54.2 Cervicalgia; W19.XXXA Unspecified fall, initial encounter | CPT/HCPCS: 70450; 71250; 72125 ==

== ENCOUNTER 2025-09-25 19:19 | Emergency (ER) | payer MEDICARE, SELFPAY ==
[2025-09-25 19:25] VITALS: BP 132/70; BP 134/60; PULSE 55; PULSE 56; RESP 18; TEMP 36.4; O2SAT 96; O2SAT 98; BMI 29.3
--- OUTSIDE RECORDS SUMMARY | 2025-09-25 21:31 | XMS_ITS | Clinical Summary ---
Author Organization [facility] Address [address] [place] [address] Care Team Providers Care Transmission System Operator Name Role Phone Daniella Oleary Primary Care Provider [phone] Allergies No known active allergies Medications donepezil (ARICEPT) 10 MG tabletIndications:M edication refill Take 1 tablet (10 mg total) by mouth nightly. 30 tablet 3 4 Active ergocalciferol (VITAMIN D2,DRISDOL) 16384 units CapIndications:Gay min D deficiency Take 1 [...] Documentation [facility] Department of Internal Medicine [place] [address] [place] [phone] Daniella Oleary PA from Last 3 Months [...] topic Insurance [employer] MGD MEDICARE Care Teams Transmission System Operator Relationship Specialty Start Date End Date Daniella Oleary PA [address] [place] [address] PCP - General Internal Medicine 01/24/24
--- OUTSIDE RECORDS SUMMARY | 2025-09-25 21:31 | XMS_ITS | Encounter Summary ---
Author Organization [facility] Address [address] [place] [address] Care Team Providers Care Wheel Filler Name Role Phone Delaney Ascencio APRN Primary Care Provider Un available Daniella Oleary Primary Care Provider + [phone] Daniella Oleary Unavailable [phone] Encounter Details Date Type Department Care Team (Late st Contact Info) Description 10/25/2023 Scanned Document [facility] Department of Internal Medicine [place] [address] [place] [address] Delaney Ascencio APRN *need valid address Social [...] on filedocumented in this encounter Care Teams Wheel Filler Relationship Specialty Start Date End Date Delaney Ascencio APRN PCP - General 01/23/24 Daniella Oleary PA [address] [place] [address] PCP - General Internal Medicine 01/24/24 Daniella Oleary PA [address] [place] [address] PCP - Handy Sweet MA Attributed 04/01/24 01/29/25 documented as of this encounter
--- OUTSIDE RECORDS SUMMARY | 2025-09-25 21:31 | XMS_ITS | Encounter Summary ---
Author Organization [facility] Address [address] [place] [address] Care Team Providers Care Hospice Executive Director Name Role Phone Daniella Oleary Primary Care Provider +- [phone] Encounter Details Date Type Department Care Team (Late st Contact Info) Description 03/14/2025 Scanned Document [facility] Department of Internal Medicine [place] [address] [place] [address] Daniella Oleary PA [address] [place] [address] Social History Tobacco Use Types Packs/Day Years [...] on filedocumented in this encounter Care Teams Hospice Executive Director Relationship Specialty Start Date End Date Daniella Oleary PA [address] [place], [place] [address] PCP - General Internal Medicine 01/24/24 documented as of this encounter
--- OUTSIDE RECORDS SUMMARY | 2025-09-25 21:31 | XMS_ITS | Encounter Summary ---
Author Organization [facility] Address [address] [place] [address] Care Team Providers Care Patient Financial Counselor Name Role Phone Delaney Ascencio APRN Primary Care Provider Un available Daniella Oleary Primary Care Provider + [phone] Daniella Oleary Unavailable [phone] Encounter Details Date Type Department Care Team (Late st Contact Info) Description 01/02/2024 Scanned Document [facility] Department of Internal Medicine [place] [address] [place] [address] Delaney Ascencio APRN *need valid address Social [...] on filedocumented in this encounter Care Teams Patient Financial Counselor Relationship Specialty Start Date End Date Delaney Ascencio APRN PCP - General 01/23/24 Daniella Oleary PA [address] [place] [address] PCP - General Internal Medicine 01/24/24 Daniella Oleary PA [address] [place] [address] PCP - Handy Sweet [place] Attributed 04/01/24 01/29/25 documented as of this encounter
--- OUTSIDE RECORDS SUMMARY | 2025-09-25 21:31 | XMS_ITS | Encounter Summary ---
Author Organization [facility] Address [address] [place] [address] Care Team Providers Care Poly Operator Name Role Phone Daniella Oleary Primary Care Provider +- [phone] Encounter Details Date Type Department Care Team (Late st Contact Info) Description 05/30/2025 Scanned Document [facility] Department of Internal Medicine [place] [address] [place] [address] Daniella Oleary PA [address] [place] [address] Social History Tobacco Use Types Packs/Day Years [...] on filedocumented in this encounter Care Teams Poly Operator Relationship Specialty Start Date End Date Daniella Oleary PA [address] [place], [place] [address] PCP - General Internal Medicine 01/24/24 documented as of this encounter
--- OUTSIDE RECORDS SUMMARY | 2025-09-25 21:31 | XMS_ITS | Encounter Summary ---
Author Organization [facility] Address [address] [place] [address] Care Team Providers Care Inspector Golf Ball Name Role Phone Delaney Ascencio APRN Primary Care Provider Un available Daniella Oleary Primary Care Provider + [phone] Daniella Oleary Unavailable [phone] Encounter Details Date Type Department Care Team (Late st Contact Info) Description 01/01/2024 Scanned Document [facility] Department of Internal Medicine [address] [address] Delaney Ascencio APRN *need valid address Social [...] on filedocumented in this encounter Care Teams Inspector Golf Ball Relationship Specialty Start Date End Date Delaney Ascencio APRN PCP - General 01/23/24 Daniella Oleary PA [address] [place] [address] PCP - General Internal Medicine 01/24/24 Daniella Oleary PA [address] [place] [address] PCP - Handy Sweet MA Attributed 04/01/24 01/29/25 documented as of this encounter
--- OUTSIDE RECORDS SUMMARY | 2025-09-25 21:31 | XMS_ITS | Encounter Summary ---
Author Organization [facility] Address [address] [place] [address] Care Team Providers Care Emergency Crew Supervisor Name Role Phone Delaney Ascencio APRN Primary Care Provider Un available Daniella Oleary Primary Care Provider + [phone] Daniella Oleary Unavailable [phone] Encounter Details Date Type Department Care Team (Late st Contact Info) Description 06/09/2023 Scanned Document [facility] Department of Internal Medicine [place] [address] [place] [address] Delaney Ascencio APRN *need valid address Social [...] on filedocumented in this encounter Care Teams Emergency Crew Supervisor Relationship Specialty Start Date End Date Delaney Ascencio APRN PCP - General 01/23/24 Daniella Oleary PA [address] [place] [address] PCP - General Internal Medicine 01/24/24 Daniella Oleary PA [address] [place] [address] PCP - Handy Sweet MA Attributed 04/01/24 01/29/25 documented as of this encounter
--- OUTSIDE RECORDS SUMMARY | 2025-09-25 21:31 | XMS_ITS | Encounter Summary ---
Author Organization [facility] Address [address] [place] [address] Care Team Providers Care International Coordinator Name Role Phone Delaney Ascencio APRN Primary Care Provider Un available Daniella Oleary Primary Care Provider + [phone] Daniella Oleary Unavailable +[phone] Encounter Details Date Type Department Care Team (Late st Contact Info) Description 06/02/2023 Scanned Document [facility] Department [facility] Internal Medicine [place] [address] [place] [address] Delaney Ascencio APRN *need valid address Social [...] filedocumented in this encounter Care Teams International Coordinator Relationship Specialty Start Date End Date Delaney Ascencio APRN PCP - General 01/23/24 Daniella Oleary PA [address] [place] [address] PCP - General Internal Medicine 01/24/24 Daniella Oleary PA [address] [place] [address] PCP - Handy Sweet MA Attributed 04/01/24 01/29/25 documented as of this encounter
--- OUTSIDE RECORDS SUMMARY | 2025-09-25 21:31 | XMS_ITS | Clinical Summary ---
Author Organization [facility] Prior to 03/01/25 Address [address] [place] [address] Care Team Providers Care Briquette Molder Name Role Phone Jocelynn Avila MD Primary Care Provider [phone] Allergies No known active allergies Medications Medication [...] age to complete this topic Care Teams Briquette Molder Relationship Specialty Start Date End Date Jocelynn Avila MD [address] [place] [address] PCP - General Family Medicine 12/30/21
--- OUTSIDE RECORDS SUMMARY | 2025-09-25 21:31 | XMS_ITS | Encounter Summary ---
Author Organization [facility] [place] [facility] Address [address] [place] [address] Care Team Providers Care Project Management Consultant Name Role Phone Delaney Ascencio APRN Primary Care Provider Un available Daniella Oleary Primary Care Provider + [phone] Daniella Oleary Unavailable [phone] Encounter Details Date Type Department Care Team (Late st Contact Info) Description 06/03/2023 Scanned Document [facility] Department of Internal Medicine [place] [address] [place] [address] Delaney Ascencio APRN *need valid address Social [...] on filedocumented in this encounter Care Teams Project Management Consultant Relationship Specialty Start Date End Date Delaney Ascencio APRN PCP - General 01/23/24 Daniella Oleary PA [address] [place] [address] PCP - General Internal Medicine 01/24/24 Daniella Oleary PA [address] [place] [address] PCP - Handy Sweet MA Attributed 04/01/24 01/29/25 documented as of this encounter
--- OUTSIDE RECORDS SUMMARY | 2025-09-25 21:31 | XMS_ITS | Encounter Summary ---
Author Organization [facility] Address [address] [place] [address] Care Team Providers Care Local Owner Operator Truck Driver Name Role Phone Delaney Ascencio APRN Primary Care Provider Un available Daniella Oleary Primary Care Provider + [phone] Daniella Oleary Unavailable [phone] Encounter Details Date Type Department Care Team (Late st Contact Info) Description 01/19/2024 Scanned Document [facility] Department of Internal Medicine [place] [address] [place] [address] Delaney Ascencio APRN *need valid address Social [...] on filedocumented in this encounter Care Teams Local Owner Operator Truck Driver Relationship Specialty Start Date End Date Delaney Ascencio APRN PCP - General 01/23/24 Daniella Oleary PA [address] [place] [address] PCP - General Internal Medicine 01/24/24 Daniella Oleary PA [address] [place] [address] PCP - Handy Sweet MA Attributed 04/01/24 01/29/25 documented as of this encounter
--- OUTSIDE RECORDS SUMMARY | 2025-09-25 21:31 | XMS_ITS | Encounter Summary ---
Author Organization [facility] Address [address] [place] [address] Care Team Providers Care Derrick Man Name Role Phone Delaney Ascencio APRN Primary Care Provider Un available Daniella Oleary Primary Care Provider + [phone] Daniella Oleary Unavailable [phone] Encounter Details Date Type Department Care Team (Late st Contact Info) Description 06/27/2023 Scanned Document [facility] Department of Internal Medicine [place] [address] [place] [address] Delaney Ascencio APRN *need valid address Social [...] on filedocumented in this encounter Care Teams Derrick Man Relationship Specialty Start Date End Date Delaney Ascencio APRN PCP - General 01/23/24 Daniella Oleary PA [address] [place] [address] PCP - General Internal Medicine 01/24/24 Daniella Oleary PA [address] [place] [address] PCP - Handy Sweet MA Attributed 04/01/24 01/29/25 documented as of this encounter
--- OUTSIDE RECORDS SUMMARY | 2025-09-25 21:31 | XMS_ITS | Encounter Summary ---
Author Organization [facility] Address [address] [place] [address] Care Team Providers Care Paper Folder Name Role Phone Daniella Oleary Primary Care Provider +- [phone] Encounter Details Date Type Department Care Team (Late st Contact Info) Description 03/20/2025 Scanned Document [facility] Department of Internal Medicine [place] [address] [place] [address] Daniella Oleary PA [address] [place] [address] Social History Tobacco Use Types Packs/Day Years [...] on filedocumented in this encounter Care Teams Paper Folder Relationship Specialty Start Date End Date Daniella Oleary PA [address] [place], [place] [address] PCP - General Internal Medicine 01/24/24 documented as of this encounter
--- OUTSIDE RECORDS SUMMARY | 2025-09-25 21:31 | XMS_ITS | Encounter Summary ---
Author Organization [facility] Address [address] [place] [address] Care Team Providers Care Intel Recruiter Name Role Phone Delaney Ascencio APRN Primary Care Provider Un available Daniella Oleary Primary Care Provider + [phone] Daniella Oleary Unavailable +[phone] Encounter Details Date Type Department Care Team (Late st Contact Info) Description 12/28/2023 Scanned Document [facility] Department of Internal Medicine [address] [address] Delaney Ascencio APRN *need valid address Social [...] on filedocumented in this encounter Care Teams Intel Recruiter Relationship Specialty Start Date End Date Delaney Ascencio APRN PCP - General 01/23/24 Daniella Oleary PA [address] [place] [address] PCP - General Internal Medicine 01/24/24 Daniella Oleary PA [address] [place] [address] PCP - Handy Sweet MA Attributed 04/01/24 01/29/25 documented as of this encounter
--- OUTSIDE RECORDS SUMMARY | 2025-09-25 21:31 | XMS_ITS | Encounter Summary ---
Author Organization [facility] Address [address] [place] [address] Phone Care Team Providers Care Electrical Sign Wirer Helper Name Role Phone Pcp, Unknown Primary Care Provider Unavailabl e Encounter Details Date Type Department Care Team (Late st Contact Info) Description 09/09/2025 Lab Requisition [facility] Lab Main [address] [place] [address] Kobi Israel MD [address] [facility], [address], [address] [place] [address] Hypothyroidism, unspecified Social History Tobacco Use Types [...] 4.00 - 11.00 K/uL 09/09/2025 7:12 AM [facility] RBC 3.98(L) 4.00 - 5.20 M/uL 09/09/2025 7:12 AM [facility] Hemoglobin 12.2 12.0 - 16.0 g/dL 09/09/2025 7:12 AM [facility] Hematocrit 36.9 36.0 - 46.0 % 09/09/2025 7:12 AM [facility] MCV 92.7 80.0 - 100.0 fL 09/09/2025 7:12 AM [facility] MCH 30.7 27.0 - 31.0 pg 09/09/2025 7:12 AM [facility] MCHC 33.1 32.0 - 36.0 g/dL 09/09/2025 7:12 AM [facility] PLT 163 150 - 450 K/uL 09/09/2025 7:12 AM [facility] MPV 10.4 8.4 - 12.0 fL 09/09/2025 7:12 AM [facility] RDW-CV 13.4 11.5 - 14.5 % 09/09/2025 7:12 AM [facility] Absolute NRBC 0.00 <=0.00 K cells/uL 09/09/2025 7:12 AM [facility] NRBC 0.0 <=0.0 /100 WBCs 09/09/2025 7:12 AM [facility] Blood (Blood) 09/09/2025 5:3 0 AM EST 09/09/2025 6:42 AM EST us Kobi Israel MD LAB BLOOD BKR ORDERABLES Final R esult [facility] [address] [place] [address] * (ABNORMAL) Basic Metabolic Panel (BMP) (09/09/2025 5:30 AM EST) Sodium 141 136 - 145 mmol/L 09/09/2025 7:30 AM [facility] Potassium 4.4 3.4 - 5.1 mmol/L 09/09/2025 7:30 AM [facility] Chloride 103 98 - 107 mmol/L 09/09/2025 7:30 AM [facility] CO2 28 20 - 31 mmol/L 09/09/2025 7:30 AM [facility] BUN 21 6 - 23 mg/dL 09/09/2025 7:30 AM [facility] Creatinine 0.60 0.50 - 1.00 mg/dL 09/09/2025 7:30 AM [facility] Glucose 102(H) 70 - 99 mg/dL 09/09/2025 7:30 AM [facility] Calcium 9.2 8.5 - 10.5 mg/dL 09/09/2025 7:30 AM [facility] eGFR 88 >59 mL/min/1.7 3m2 09/09/2025 7:30 AM [facility] Comment:Estimated glomerular filtration rate calculated using the CKD-EPI refit equation. Anion Gap 10 3 - 17 mmol/L 09/09/2025 7:30 AM [facility] Blood (Blood) 09/09/2025 5:3 0 AM EST 09/09/2025 6:42 AM EST us Kobi Israel MD LAB BLOOD BKR ORDERABLES Final R esult [facility] [address] [place] [address] * (ABNORMAL) Uric Acid (09/09/2025 5:30 AM EST) Uric Acid 2.0(L) 2.4 - 5.7 mg/dL 09/09/2025 7:30 AM [facility] Blood (Blood) 09/09/2025 5:3 0 AM EST 09/09/2025 6:42 AM EST us Kobi Israel MD LAB BLOOD BKR ORDERABLES Final R esult [address] [address] documented in this encounter Visit Diagnoses Diagnosis Hypothyroidism, unspecified documented in this encounter Care Teams Electrical Sign Wirer Helper Relationship Specialty Start Date End Date Pcp, Unknown PCP - General 05/30/25 documented as of this encounter Additional Source Comments The information contained in this document represents components of the legal health record. It is not the complete legal health record.[facility]
--- OUTSIDE RECORDS SUMMARY | 2025-09-25 21:31 | XMS_ITS | Encounter Summary ---
Author Organization [facility] Address [address] [place] [address] Care Team Providers Care Master Chef Name Role Phone Daniella Oleary Primary Care Provider + [phone] Daniella Oleary Unavailable [phone] Encounter Details Date Type Department Care Team (Late st Contact Info) Description 11/18/2024 Scanned Document [facility] Department of Internal Medicine [place] [address] [place] [phone] Daniella Oleary PA [address] [place] [address] Social History Tobacco Use Types Packs/Day Years [...] on filedocumented in this encounter Care Teams Master Chef Relationship Specialty Start Date End Date Daniella Oleary PA [address] [place] [address] [place] [address] PCP - General Internal Medicine 01/24/24 Daniella Oleary PA [address] [place] [address] PCP - Handy Sweet [place] Attributed 04/01/24 01/29/25 documented as of this encounter
--- OUTSIDE RECORDS SUMMARY | 2025-09-25 21:31 | XMS_ITS | Clinical Summary ---
Author Organization [facility] it Address [address] [place] [address] Care Team Providers Care Archeologist Classical Name Role Phone Jocelynn Avila MD Primary Care Provider [phone] Medical History Medical History Date Comments Dementia [...] Procedure Name Priority Date/Time Associated Diagnosis Comments [facility] DEXA AXIAL SKELETON Routine 09/26/2023 7:49 AM EST Encounter for screening for osteoporosis from Last 3 Months or Most Recently Relevant to Health Maintenance Results * [facility] DEXA AXIAL SKELETON (09/26/2023 7:49 AM EST) Anatomical Region Laterality Modality Mammography 09/22/2023 3:01 PM EST Narrative 09/26/2023 7:49 AM EST [facility] Diagnostic Imaging Department [address] [place] [address] Patient: GINO BOWEN Kane /Age/Sex: 1940 83 - F Unit#: [id number] Location/Status: SPDIMAM/REG CLI Mnemonic[facility] Ordering Physician: DELANEY NOE NP [facility] Dexa Axial Skeleton - 09/22/23 - 1533 [...] probability of hip fracture of 7.2%. Code 87787 Dictating Physician: ZAYRA BAUMAN MD Electronically Signed by: ZAYRA BAUMAN MD Dic Date/Time: 09/26/2348 Sign date/Time: 09/26/23748 Procedure Note Zayra Bauman MD - 11/07/2023 [facility] Diagnostic Imaging Department [address] [place], [place] [id number] Patient: ISAELGINO GALINDO/Age/Sex: 1940 - 83 - F Unit#: [id number] Location/Status: [facility]/REG CLI Mnemonic/[facility] Ordering Physician: DELANEY NOE [employer] [facility] Dexa Axial Skeleton - 09/22/23 - [...] density of the femurs bilaterally is 0.701 gm/bl1fnhem is 70% of that of young normals [...] probability of hip fracture of 7.2%. Code 01733 Dictating Physician: ZAYRA BAUMAN MD Electronically Signed by: ZAYRA BAUMAN MD Dic Date/Time: 09/26/2348 Sign date/Time: 09/26/2349 Delaney Sonu TIME CLOCK REPAIRER IMG BI PROCEDURES Final Resu lt from Last 3 Months or Most Recently Relevant to Health Maintenance Care Teams Archeologist Classical Relationship Specialty Start Date End Date Jocelynn Avila MD [address] [facility] [place] [address] PCP - General Family Medicine 12/30/21
--- OUTSIDE RECORDS SUMMARY | 2025-09-25 21:31 | XMS_ITS | Clinical Summary ---
Author Organization [facility] Address [address] [place] [phone] Phone Care Team Providers Care Senior Data Modeler Name Role Phone Pcp, Unknown Primary Care Provider Unavailabl e Encounters Date Type Department Care Team Description 09/09/2025 Lab Requisition [facility] Lab Main [address] [place], [place] [id number] Kobi Israel MD Hypothyroidism, unspecified from Last [...] 4.00 - 11.00 K/uL 09/09/2025 7:12 AM [facility] RBC 3.98(L) 4.00 - 5.20 M/uL 09/09/2025 7:12 AM [facility] Hemoglobin 12.2 12.0 - 16.0 g/dL 09/09/2025 7:12 AM [facility] Hematocrit 36.9 36.0 - 46.0 % 09/09/2025 7:12 AM [facility] MCV 92.7 80.0 - 100.0 fL 09/09/2025 7:12 AM [facility] MCH 30.7 27.0 - 31.0 pg 09/09/2025 7:12 AM [facility] MCHC 33.1 32.0 - 36.0 g/dL 09/09/2025 7:12 AM [facility] PLT 163 150 - 450 K/uL 09/09/2025 7:12 AM [facility] MPV 10.4 8.4 - 12.0 fL 09/09/2025 7:12 AM [facility] RDW-CV 13.4 11.5 - 14.5 % 09/09/2025 7:12 AM [facility] Absolute NRBC 0.00 <=0.00 K cells/uL 09/09/2025 7:12 AM [facility] NRBC 0.0 <=0.0 /100 WBCs 09/09/2025 7:12 AM [facility] Blood (Blood) 09/09/2025 5:3 0 AM EST 09/09/2025 6:42 AM EST us Kobi Israel MD LAB BLOOD BKR ORDERABLES Final R esult [facility] [address] [place] [address] * (ABNORMAL) Uric Acid (09/09/2025 5:30 AM EST) Uric Acid 2.0(L) 2.4 - 5.7 mg/dL 09/09/2025 7:30 AM [facility] Blood (Blood) 09/09/2025 5:3 0 AM EST 09/09/2025 6:42 AM EST us Kobi Israel MD LAB BLOOD BKR ORDERABLES Final R esult Performing Organization Address City/[facility]/ZIP Co de Phone Number [address] [address] * (ABNORMAL) Basic Metabolic Panel (BMP) (09/09/2025 5:30 AM EST) Pathologist [facility] Sodium 141 136 - 145 mmol/L 09/09/2025 7:30 AM [facility] Potassium 4.4 3.4 - 5.1 mmol/L 09/09/2025 7:30 AM [facility] Chloride 103 98 - 107 mmol/L 09/09/2025 7:30 AM [facility] CO2 28 20 - 31 mmol/L 09/09/2025 7:30 AM [facility] BUN 21 6 - 23 mg/dL 09/09/2025 7:30 AM [facility] Creatinine 0.60 0.50 - 1.00 mg/dL 09/09/2025 7:30 AM [facility] Glucose 102(H) 70 - 99 mg/dL 09/09/2025 7:30 AM [facility] Calcium 9.2 8.5 - 10.5 mg/dL 09/09/2025 7:30 AM [facility] eGFR 88 >59 mL/min/1.7 3m2 09/09/2025 7:30 AM [facility] Comment:Estimated glomerular filtration rate calculated using the CKD-EPI refit equation. Anion Gap 10 3 - 17 mmol/L 09/09/2025 7:30 AM [facility] Blood (Blood) 09/09/2025 5:3 0 AM EST 09/09/2025 6:42 AM EST us Kobi Israel MD LAB BLOOD BKR ORDERABLES Final R esult [address] [address] from Last 3 Months Insurance [employer] PPO MEDICARE REPLACEMENT [employer] PPO MEDICARE REPLACEMENT [employer] PPO MEDICARE REPLACEMENT [employer] O MEDICARE REPLACEMENT [employer] O MEDICARE REPLACEMENT [employer] O MEDICARE REPLACEMENT Care Teams Senior Data Modeler Relationship Specialty Start Date End Date Pcp, Unknown PCP - General 05/30/25 Additional Source Comments The information contained in this document represents components of the legal health record. It is not the complete legal health record.[facility]
--- OUTSIDE RECORDS SUMMARY | 2025-09-25 21:31 | XMS_ITS | Encounter Summary ---
Author Organization [facility] Address [address] [place] [address] Care Team Providers Care Line Worker Name Role Phone Delaney Ascencio APRN Primary Care Provider Un available Daniella Oleary Primary Care Provider + [phone] Daniella Oleary Unavailable [phone] Encounter Details Date Type Department Care Team (Late st Contact Info) Description 12/26/2023 Scanned Document [facility] Department of Internal Medicine [place] [address] [place] [phone] Delaney Ascencio APRN *need valid address Social [...] on filedocumented in this encounter Care Teams Line Worker Relationship Specialty Start Date End Date Delaney Ascencio APRN PCP - General 01/23/24 Daniella Oleary PA [address] [place] [address] PCP - General Internal Medicine 01/24/24 Daniella Oleary PA [address] [place] [address] PCP - Handy Sweet [place] Attributed 04/01/24 01/29/25 documented as of this encounter
[2025-09-25 21:45] VITALS: RESP 18; O2SAT 93
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
--- NOTE | 2025-09-25 23:45 | PC.NURSE ---
Report called back to Bernardino Suero re pt's discharge.
[2025-09-26 00:21] VITALS: BP 168/66; PULSE 61; RESP 16; TEMP 36.7; O2SAT 95
[2025-09-26 00:31] VITALS: BP 168/66; PULSE 61; RESP 16; TEMP 36.7; O2SAT 95
== END 2025-09-26 00:32 | disposition skilled nursing facility (03) ==
PROVIDERS: Emergency Provider Emergency Medicine; PCP Family Medicine
DX: R26.81 Unsteadiness on feet (principal); Z79.899 Other long term (current) drug therapy
CPT/HCPCS: 99284